=== PATIENT | male | born 1955 | race Caucasian/White ===

== ENCOUNTER 2020-08-28 10:19 | Inpatient (IN) | payer MEDICAID, SELFPAY ==
[2020-08-28] VITALS (23 sets, daily range): BP systolic 93–127; BP diastolic 37–73; PULSE 94–136; RESP 27–46; TEMP 36.6–39.9; O2SAT 93–100; BMI 24.6; BMI 27.1
--- NOTE | 2020-08-28 10:26 | CT_ITS ---
STUDY: CT BRAIN WITHOUT CONTRAST REASON FOR EXAM: Male, 65 years old. Altered mental status RADIATION DOSAGE (If Supplied By Facility): CTDIvol = ( 44.99 ) mGy, DLP = ( 812.98 ) mGycm TECHNIQUE: Transaxial CT imaging of the brain was performed without administration of intravenous contrast material. Individualized dose optimization techniques were used for this CT. COMPARISON: No relevant priors. FINDINGS: Normal soft tissue structures. Normal calvarium. There is mild cerebral atrophy with widening of the extra-axial spaces and ventricular dilatation. Normal white matter tracts of the cerebral hemispheres. Normal basal ganglia and thalami. Normal brainstem. Normal cerebellum. There is no intracranial hemorrhage. There are no findings of an acute ischemic infarction. Normal visualized paranasal sinuses. CT/Brain/Head without Contrast IMPRESSION: No acute intracranial process. Electronically Signed: Jorge Ansari MD at 12:21 EDT Tel , Service support ,
--- NOTE | 2020-08-28 10:27 | EKG12_ITS ---
Test Reason : ALT MENTAL STATUS Blood Pressure : / mmHG Vent. Rate : 130 BPM Atrial Rate : 130 BPM P-R Int : 140 ms QRS Dur : 094 ms QT Int : 326 ms P-R-T Axes : 082 102 067 degrees QTc Int : 479 ms Sinus tachycardia Rightward axis Pulmonary disease pattern Abnormal ECG Confirmed by JUSTIN DIEGO, JACK ([id number]), scientific editor YAS CHOU ([id number]) on 08/30/2020 10:40:41 A M Referred By: JASON Confirmed By:NATY ANDERSON MD
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
[2020-08-28] MEDS: 0.9% Normal Saline 1,000 ML 1000 ML IV ×2 (11:10→12:14)
[2020-08-28 11:29] LABS: International Normalized Ratio 1.4; Prothrombin Time (Protime)PT. 16.8 SECONDS (11.7-14.9)
--- NOTE | 2020-08-28 11:30 | RAD_ITS ---
STUDY: X-RAY CHEST REASON FOR EXAM: Male, 65 years old. Cough. TECHNIQUE: Single AP portable view of the chest. COMPARISON: None. FINDINGS: Is well expanded. There is vague infiltrate at the right lung base. Lungs appear otherwise clear. There is no demonstrated pleural abnormality. Normal size heart. Normal mediastinum and veronica. Normal visualized pulmonary arteries. Normal visualized aortic arch and descending thoracic aorta. There are diffuse degenerative changes of the visualized thoracic spine. There is degenerative osteoarthritis of the bilateral shoulders. There is no demonstrated abnormality of the visualized soft tissue structures of the upper abdomen. RAD/Chest 1 View (Portable) IMPRESSION: Right basilar infiltrate. Question pneumonia. Electronically Signed: Cyrus Warren DO at 13:20 EDT Tel [phone], Service support ,
[2020-08-28 11:31] LABS: Partial Thromboplast Time 36.6 Seconds (24.1-36.2)
[2020-08-28 11:38] LABS: ALB/GLOB Ratio 0.5 RATIO (0.9-2.4); AST(SGOT) 281 U/L (15-37); Alanine Aminotransfer ALT/SGPT 158 U/L (16-61); Albumin, Serum 2.6 g/dL (3.2-5.0); Alkaline Phosphatase 79 U/L (45-117); Anion Gap 18 (5-15); BUN 67 mg/dL (7-18); BUN/Creat Ratio 18.2 RATIO (10-20); Calcium,Total 9.1 mg/dL (8.5-10.1); Chloride 98 mmol/L (98-107); Creatinine, Serum 3.69 mg/dL (0.70-1.30); EST Glomerular Filtration Rate 18 mL/min (>60); Est Glom Filt Rate - Afr Amer 21 mL/min (>60); Estimated Creatinine Clearance 20.88 ml/min; Globulin 5.4 g/dL (2.2-4.2); Glucose 102 mg/dL (74-106); Potassium 3.2 mmol/L (3.5-5.1); Sodium Level 137 mmol/L (136-145)
[2020-08-28 11:48] LABS: Lactic Acid 6.8 mmol/L (0.4-1.9)
[2020-08-28 12:11] LABS: Mucous, Urine 0 SEEN /hpf (<or=2+); Squamous Epithelial Cells - UA 0 SEEN /hpf (0-5); White Blood Cells 0 SEEN /hpf (0-5)
[2020-08-28 12:15] LABS: Color, Urine Yellow (Yellow); Glucose, Dipstick Normal (Normal); Ketone-Dipstick 5 mg/dl (Negative); Leukocyte Esterase-Dipstick 25 /ul (Negative); Nitrite-Dipstick Positive (Negative); Occult Blood-Urine 250 /ul (Negative); Protein-Dipstick 500 mg/dl (Negative); Specific Gravity, Urine 1.025 (1.002-1.030); Urine Clarity Clear (Clear); Urine Urobilinogen 8 mg/dl (Normal)
[2020-08-28 12:15] LABS: Absolute Lymphocyte Count 1.49 X10^3/uL (0.83-4.51); Absolute Neutrophil Count 22.3 X10^3/uL (2.0-7.7); Basophil# 0.11 X10^3/uL; Basophil% 0.4 % (0-1); Eosinophil# 0.15 X10^3/uL; Eosinophils% 0.6 % (0-5); Hemoglobin 14.4 g/dL (13.0-16.5); Lymphocyte # 1.49 X10^3/ul (0.83-4.51); Lymphocyte % 5.8 % (19-41); Mean Corp Hgb Conc 33.5 g/dL (32-36); Mean Corpuscular Hgb 28.6 pg (27.0-32.0); Mean Corpuscular Volume 85.3 fL (80-94); Monocyte# 1.06 X10^3/uL; Monocyte% 4.1 % (0-10); NRBC Flagged by Analyzer 0.1 % (0-5); Neutrophil # 22.28 X10^3/uL (2.7-7.7); Neutrophil % 86.8 % (47-70); POSITIVE DIFFERENTIAL YES; Platelet Count 239 K/mm3 (150-450); RBC Distribution Width CV 13.6 % (11.6-14.6); RBC Distribution Width SD 42.3 fl (35.1-43.9); Red Blood Count 5.04 M/mm3 (4.6-6.2); White Blood Count 25.7 K/mm3 (4.4-11.0)
[2020-08-28 12:16] LABS: Differential Indicated SCAN CRITERIA MET
[2020-08-28 12:20] LABS: Urine Bilirubin Dipstick 3 mg/dL (Negative)
[2020-08-28 12:22] LABS: Bacteria 1+ /hpf (None Seen); Red Blood Cells-Urine 5-10 SEEN /hpf (0-5)
[2020-08-28] MEDS: Acetaminophen 650 MG Suppository RC (12:28)
[2020-08-28 12:37] LABS: Differential Comment SCANNED
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
[2020-08-28] MEDS: 0.9% Normal Saline 1,000 ML 999 ML IV (14:20)
[2020-08-28 15:07] LABS: Reflex Lactate? Y
--- NOTE | 2020-08-28 15:10 | RAD_ITS ---
HISTORY: Attempted central line placement EXAMINATION/TECHNIQUE: XR Chest 1 View: Portable upright AP chest x-ray COMPARISON: 08/28/20 at 11:33 AM FINDINGS: Stable lung gusman. No pneumothorax. Cardiac size unchanged. RAD/Chest 1 View (Portable) IMPRESSION: Stable portable chest x-ray. at 1733 Reported and signed by: Harjinder Thomas MD Electronically Signed: Harjinder Thomas MD at 17:31 EDT Tel , Service support ,
[2020-08-28 15:45] LABS: Lactic Acid 4.6 mmol/L (0.4-1.9)
--- NOTE | 2020-08-28 16:51 | SEPSISNOTE ---
Sepsis Note Physical Exam/Vitals Subjective: Objective: Brain CT 08/28/20 10:26 IMPRESSION: No acute intracranial process. Electronically Signed: Jorge Ansari MD at 12:21 EDT Tel , Service support , Lumbar Spine X-Ray 08/28/20 10:29 IMPRESSION: Question age-indeterminate compression deformity of L1. Electronically Signed: Cyrus [place]DO caryn at 13:21 EDT Tel [phone], Service support , Chest X-Ray 08/28/20 11:30 IMPRESSION: Right basilar infiltrate. Question pneumonia. Electronically Signed: Cyrus Warren DO at 13:20 EDT Tel [phone], Service support , Temp Pulse Resp BP Pulse Ox 101.2 F H 98 32 H 102/67 95 08/28/20 16:30 08/28/20 16:30 08/28/20 16:30 08/28/20 16:30 08/28/20 16:30 08/28/20 08/28/20 08/28/20 15:00 14:45 12:00 WBC 25.7 H RBC 5.04 Hgb 14.4 Hct 43.0 MCV 85.3 MCH 28.6 MCHC 33.5 RDW Std Deviation 42.3 RDW Coeff of Barbara 13.6 Plt Count 239 MPV 12.0 Immature Gran % (Auto) 2.300 H Neut % (Auto) 86.8 H Lymph % (Auto) 5.8 L [place] % (Auto) 4.1 Eos % (Auto) 0.6 Baso % (Auto) 0.4 Absolute Neuts (auto) 22.3 H Absolute Lymphs (auto) 1.49 Nucleated RBC % 0.1 Differential Comment SCANNED PT INR APTT Sodium Potassium Chloride Carbon Dioxide Anion Gap BUN Creatinine Estim Creat Clear Calc Est GFR (MDRD) Af Amer Est GFR (MDRD) Non-Af BUN/Creatinine Ratio Glucose Lactic Acid 4.6 H* Calcium Total Bilirubin AST ALT Alkaline Phosphatase Troponin I Total Protein Albumin Globulin Albumin/Globulin Ratio Urine Color Urine Clarity Urine pH Ur Specific [place] Urine Protein Urine Glucose (UA) Urine Ketones Urine Occult Blood Urine Nitrite Urine Bilirubin Urine Urobilinogen Ur Leukocyte Esterase Urine RBC Urine WBC Ur Squamous Epith Cells Urine Bacteria Urine Mucus COVID-19 (JOSE ANGEL) Pending 08/28/20 08/28/20 08/28/20 11:55 10:55 10:55 WBC RBC Hgb Hct MCV MCH MCHC RDW Std Deviation RDW Coeff of Barbara Plt Count MPV Immature Gran % (Auto) Neut % (Auto) Lymph % (Auto) [place] % (Auto) Eos % (Auto) Baso % (Auto) Absolute Neuts (auto) Absolute Lymphs (auto) Nucleated RBC % Differential Comment PT INR APTT Sodium 137 Potassium 3.2 L Chloride 98 Carbon Dioxide 21.0 Anion Gap 18 H BUN 67 H Creatinine 3.69 H Estim Creat Clear Calc 20.88 Est GFR (MDRD) Af Amer 21 L Est GFR (MDRD) Non-Af 18 L BUN/Creatinine Ratio 18.2 Glucose 102 Lactic Acid 6.8 H* Calcium 9.1 Total Bilirubin 2.80 H AST 281 H ALT 158 H Alkaline Phosphatase 79 Troponin I 0.135 H Total Protein 8.0 Albumin 2.6 L Globulin 5.4 H Albumin/Globulin Ratio 0.5 L Urine Color Yellow Urine Clarity Clear Urine pH 5.0 Ur Specific [place] 1.025 Urine Protein 500 H Urine Glucose (UA) Normal Urine Ketones 5 H Urine Occult Blood 250 H Urine Nitrite Positive H Urine Bilirubin 3 H Urine Urobilinogen 8 H Ur Leukocyte Esterase 25 H Urine RBC 5-10 SEEN Urine WBC 0 SEEN Ur Squamous Epith Cells 0 SEEN Urine Bacteria 1+ Urine Mucus 0 SEEN COVID-19 (JOSE ANGEL) 08/28/20 10:55 WBC RBC Hgb Hct MCV MCH MCHC RDW Std Deviation RDW Coeff of Barbara Plt Count MPV Immature Gran % (Auto) Neut % (Auto) Lymph % (Auto) [place] % (Auto) Eos % (Auto) Baso % (Auto) Absolute Neuts (auto) Absolute Lymphs (auto) Nucleated RBC % Differential Comment PT 16.8 H INR 1.4 APTT 36.6 H Sodium Potassium Chloride Carbon Dioxide Anion Gap BUN Creatinine Estim Creat Clear Calc Est GFR (MDRD) Af Amer Est GFR (MDRD) Non-Af BUN/Creatinine Ratio Glucose Lactic Acid Calcium Total Bilirubin AST ALT Alkaline Phosphatase Troponin I Total Protein Albumin Globulin Albumin/Globulin Ratio Urine Color Urine Clarity Urine pH Ur Specific [place] Urine Protein Urine Glucose (UA) Urine Ketones Urine Occult Blood Urine Nitrite Urine Bilirubin Urine Urobilinogen Ur Leukocyte Esterase Urine RBC Urine WBC Ur Squamous Epith Cells Urine Bacteria Urine Mucus COVID-19 (JOSE ANGEL) Assessment/Plan Patient is a 65-year-old gentleman admitted with septic shock secondary to pneumonia. Sepsis reevaluation was performed Patient remains still lethargic with respiration rate at 32. He still remains febrile with temperature of 101.2 saturating 95% on 8 L of oxygen. Skin is warm to touch with with fair capillary refill . lactic acid levels also reviewed. We will continue with current monitoring. Attestation Sepsis Attestation: Sepsis re-evaluation was performed
[2020-08-28] MEDS: Dextrose 50%-Water 25 GM/50 ML DISP.SYRIN IV (17:00)
[2020-08-28] MEDS: Heparin Injection (Vial) 5,000 UNIT/ML VIAL 5000 UNIT SC ×2 (17:03→22:25)
--- NOTE | 2020-08-28 17:09 | PCM.CONS.R ---
Assessment & Plan Assessment/Plan (1) Pneumonia: (2) Acute kidney injury: (3) Severe sepsis: (4) Essential (primary) hypertension: (5) Lactic acidosis: (6) Hypokalemia: PLAN: Unknown baseline Cr. Cr today is 3.69 mg/dl Patient likely sepsis associated XOCHILT which might still prerenal or could have progressed to ATN Non oliguric. No urgent need for HD Agree with aggressive intravascular volume Monitor RFP and UOP Avoid ACEI/ARB lactive acid level improving. continue IVF Pneumonia treatment as per ICU/hospitalist service Thank you Will continue to follow Lee Guevara MD HPI Consult Data Date of Consult: 08/28/20 HPI Narrative HPI Narrative: HUNTER PALOMARES, is a 65 M who PMH of HTN, DM,COPD. Patient was admitted to the hospital because of labored breath and confusion. In ED he was found to be septic with high WBC, XOCHILT with CR 3.6 mg/dl. chest xray showed Right side pneumonia and urine legionella is +. Lactic acid is high > 6 Patient was admitted to ICU. received 5 L of NS. Patient has meza cath placed Unkown baseline Cr. making urine in lissette meza cath No IV contrast . no documented NSAIDs use ROS: Patient is obtunded [facility] Medical History COPD (chronic obstructive pulmonary disease) Essential (primary) hypertension Heart attack Hypertension Type 2 diabetes mellitus Allergy/AdvReac Type Severity Reaction Status Date / Time No Known Allergies Allergy Verified 08/28/20 10:22 Social History Smoking Status: Former smoker Physical Exam Narrative Patient is obtunded. opens his eyes and follow simple commands Neck. No JVD. No lymphadenopathy Head AT NC Heart S1/S2 regular but tachy Chest RLL rale Abd: soft + BS no distention Ext no edema Obtunded meza cath in place Lab / Micro Data Result Diagrams: 08/28/20 12:00 08/28/20 10:55 Labs: Laboratory Results - last 24 hr 08/28/20 08/28/20 08/28/20 10:55 10:55 10:55 WBC RBC Hgb Hct MCV MCH MCHC RDW Std Deviation RDW Coeff of Barbara Plt Count MPV Immature Gran % (Auto) Neut % (Auto) Lymph % (Auto) [place] % (Auto) Eos % (Auto) Baso % (Auto) Absolute Neuts (auto) Absolute Lymphs (auto) Nucleated RBC % Differential Comment PT 16.8 H INR 1.4 APTT 36.6 H Sodium 137 Potassium 3.2 L Chloride 98 Carbon Dioxide 21.0 Anion Gap 18 H BUN 67 H Creatinine 3.69 H Estim Creat Clear Calc 20.88 Est GFR (MDRD) Af Amer 21 L Est GFR (MDRD) Non-Af 18 L BUN/Creatinine Ratio 18.2 Glucose 102 Lactic Acid 6.8 H* Calcium 9.1 Total Bilirubin 2.80 H AST 281 H ALT 158 H Alkaline Phosphatase 79 Troponin I 0.135 H Total Protein 8.0 Albumin 2.6 L Globulin 5.4 H Albumin/Globulin Ratio 0.5 L Urine Color Urine Clarity Urine pH Ur Specific [place] Urine Protein Urine Glucose (UA) Urine Ketones Urine Occult Blood Urine Nitrite Urine Bilirubin Urine Urobilinogen Ur Leukocyte Esterase Urine RBC Urine WBC Ur Squamous Epith Cells Urine Bacteria Urine Mucus 08/28/20 08/28/20 08/28/20 11:55 12:00 15:00 WBC 25.7 H RBC 5.04 Hgb 14.4 Hct 43.0 MCV 85.3 MCH 28.6 MCHC 33.5 RDW Std Deviation 42.3 RDW Coeff of Barbara 13.6 Plt Count 239 MPV 12.0 Immature Gran % (Auto) 2.300 H Neut % (Auto) 86.8 H Lymph % (Auto) 5.8 L [place] % (Auto) 4.1 Eos % (Auto) 0.6 Baso % (Auto) 0.4 Absolute Neuts (auto) 22.3 H Absolute Lymphs (auto) 1.49 Nucleated RBC % 0.1 Differential Comment SCANNED PT INR APTT Sodium Potassium Chloride Carbon Dioxide Anion Gap BUN Creatinine Estim Creat Clear Calc Est GFR (MDRD) Af Amer Est GFR (MDRD) Non-Af BUN/Creatinine Ratio Glucose Lactic Acid 4.6 H* Calcium Total Bilirubin AST ALT Alkaline Phosphatase Troponin I Total Protein Albumin Globulin Albumin/Globulin Ratio Urine Color Yellow Urine Clarity Clear Urine pH 5.0 Ur Specific [place] 1.025 Urine Protein 500 H Urine Glucose (UA) Normal Urine Ketones 5 H Urine Occult Blood 250 H Urine Nitrite Positive H Urine Bilirubin 3 H Urine Urobilinogen 8 H Ur Leukocyte Esterase 25 H Urine RBC 5-10 SEEN Urine WBC 0 SEEN Ur Squamous Epith Cells 0 SEEN Urine Bacteria 1+ Urine Mucus 0 SEEN Micro: Microbiology 08/28/20 11:55 Streptococcus pneumoniae Antigen (M - Final Urine Catheter - Catheter 08/28/20 11:55 Legionella Antigen - Final Urine Catheter - Catheter Legionella Antigen 08/28/20 11:00 SARS-CoV-2 Antigen (Rapid) - Final Mucosa - Nose Radiology Impression Brain CT 08/28/20 10:26 IMPRESSION: No acute intracranial process. Electronically Signed: Jorge Ansari MD at 12:21 EDT Tel , Service support , Lumbar Spine X-Ray 08/28/20 10:29 IMPRESSION: Question age-indeterminate compression deformity of L1. Electronically Signed: Cyrus Warren DO at 13:21 EDT Tel [phone], Service support , Chest X-Ray 08/28/20 11:30 IMPRESSION: Right basilar infiltrate. Question pneumonia. Electronically Signed: Cyrus Warren DO at 13:20 EDT Tel [phone], Service support ,
[2020-08-28] MEDS: KCL 20MEQ in 0.9% NS 20 MEQ/1,000 ML IV.SOLN. 150 MEQ IV (17:26)
[2020-08-28] MEDS: 0.9% Saline Lock 10 ML Syringe IV ×2 (17:30→22:09)
--- NOTE | 2020-08-28 17:56 | PCM.RX.CS ---
Consult Pharmacy has been consulted to manage selected antiobiotic: Vancomycin Type of Consult: New start Suspected Infection: Sepsis, Pneumonia Labs: Sodium 137 mmol/L (136-145) 08/28/20 10:55 Potassium 3.2 mmol/L (3.5-5.1) L 08/28/20 10:55 Chloride 98 mmol/L (98-107) 08/28/20 10:55 Carbon Dioxide 21.0 mmol/L (21.0-32.0) 08/28/20 10:55 Anion Gap 18 (5-15) H 08/28/20 10:55 BUN 67 mg/dL (7-18) H 08/28/20 10:55 Creatinine 3.69 mg/dL (0.70-1.30) H 08/28/20 10:55 Est GFR (MDRD) Af Amer 21 mL/min (>60) L 08/28/20 10:55 Est GFR (MDRD) Non-Af 18 mL/min (>60) L 08/28/20 10:55 BUN/Creatinine Ratio 18.2 RATIO (10-20) 08/28/20 10:55 Glucose 102 mg/dL (74-106) 08/28/20 10:55 Microbiology: Microbiology 08/28/20 11:55 Urine Catheter - Catheter Streptococcus pneumoniae Antigen (M - Final 08/28/20 11:55 Urine Catheter - Catheter Legionella Antigen - Final Legionella Antigen 08/28/20 11:00 Mucosa - Nose SARS-CoV-2 Antigen (Rapid) - Final Weight used for dosin.7 kg Estimated Creatinine Clearance: 18.9ML/MIN Goal Trough: 15-20 mcg/mL Pharmacy Plan for Drug Dosing: Give initial standard dose of 1250mg IV x1. Since the patient's CrCl < 20, will order a random vanc level to be drawn with the 2nd AM labs per protocol (which will be 08/30/20). Further dosing will be evaluated then. Pharmacy Service will continue to monitor and adjust dosing as required. Follow-Up Labs: Trough Vancomycin - random Labs to be done on [date and time ordered]: 08/30/20 0600
[2020-08-28 18:13] LABS: M R Staph aureus DNA By PCR Negative (Negative); Probe Check PASS; Specimen Processing Control PASS
[2020-08-28 18:35] LABS: Bedside Glucose 102 mg/dL (70-110)
[2020-08-28 22:00] LABS: Bedside Glucose 70 mg/dL (70-110)
[2020-08-28] MEDS: Menthol/Lanolin/Calamine/Znox 113 GM Tube 1 APPLIC TOPICAL (22:07)
[2020-08-28] MEDS: Acetaminophen 325 MG Tablet 650 MG PO (22:10)
[2020-08-29] VITALS (28 sets, daily range): BP systolic 89–162; BP diastolic 54–122; PULSE 78–116; RESP 20–35; TEMP 36.7–39.3; O2SAT 91–98
[2020-08-29] MEDS: KCL 20MEQ in 0.9% NS 20 MEQ/1,000 ML IV.SOLN. 150 MEQ IV (01:35)
[2020-08-29 03:32] LABS: Absolute Lymphocyte Count 0.91 X10^3/uL (0.83-4.51); Basophil# 0.06 X10^3/uL; Basophil% 0.3 % (0-1); Eosinophil# 0.07 X10^3/uL; Eosinophils% 0.4 % (0-5); Hemoglobin 11.2 g/dL (13.0-16.5); Lymphocyte # 0.91 X10^3/ul (0.83-4.51); Lymphocyte % 5.1 % (19-41); Mean Corp Hgb Conc 32.9 g/dL (32-36); Mean Corpuscular Hgb 28.8 pg (27.0-32.0); Mean Corpuscular Volume 87.4 fL (80-94); Mean Platelet Vol. 12.2 fl (6.2-12.0); Monocyte# 0.56 X10^3/uL; Monocyte% 3.1 % (0-10); NRBC Flagged by Analyzer 0 % (0-5); Neutrophil # 16.03 X10^3/uL (2.7-7.7); Neutrophil % 89.2 % (47-70); POSITIVE MORPHOLOGY YES; Platelet Count 171 K/mm3 (150-450); RBC Distribution Width CV 14.3 % (11.6-14.6); RBC Distribution Width SD 45.6 fl (35.1-43.9); Red Blood Count 3.89 M/mm3 (4.6-6.2)
[2020-08-29 03:33] LABS: Differential Indicated SCAN CRITERIA MET
[2020-08-29 03:51] LABS: Anion Gap 7 (5-15); BUN 66 mg/dL (7-18); Calcium,Total 7.1 mg/dL (8.5-10.1); Chloride 112 mmol/L (98-107); Creatinine, Serum 3.14 mg/dL (0.70-1.30); EST Glomerular Filtration Rate 21 mL/min (>60); Est Glom Filt Rate - Afr Amer 26 mL/min (>60); Estimated Creatinine Clearance 22.22 ml/min; Glucose 57 mg/dL (74-106); Magnesium 2.1 mg/dL (1.6-2.6); Phosphorus 2.8 mg/dL (2.5-4.9); Potassium 4.2 mmol/L (3.5-5.1); Sodium Level 143 mmol/L (136-145)
[2020-08-29] MEDS: CHLORHEXIDINE GLUC 2% CLOTH 1 EACH TOWELETTE TOPICAL (04:37)
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
[2020-08-29] MEDS: Dextrose 50%-Water 25 GM/50 ML DISP.SYRIN IV (05:49)
[2020-08-29] MEDS: Heparin Injection (Vial) 5,000 UNIT/ML VIAL 5000 UNIT SC ×3 (05:52→22:06)
[2020-08-29] MEDS: 0.9% Saline Lock 10 ML Syringe IV ×2 (06:21→22:06)
[2020-08-29 06:50] LABS: Bedside Glucose 284 mg/dL (70-110)
--- NOTE | 2020-08-29 07:12 | PCM.PN.HOSP ---
Subjective Subjective Patient remains in ICU still appears clinically ill looking. Urine Legionella antigen came back positive. No significant improvement in kidney function. Urinalysis obtained as part of his work-up came back consistent with cystitis patient has had episodes of hypoglycemia and had to be placed on D5 Objective Data Objective Data Vital Signs: Vital Signs Temp Pulse Resp BP Pulse Ox 98.5 F 94 26 H 89/60 L 96 08/29/20 06:00 08/29/20 06:00 08/29/20 06:00 08/29/20 06:00 08/29/20 06:00 Oxygen Flow Rate (L/min) 7 Oxygen Delivery Method Nasal Cannula Weight: 81.6 kg Body Mass Index (BMI) 27.1 Intake & Output: Intake and Output for Last 24 Hours 08/27/20 08/28/20 08/29/20 23:59 23:59 23:59 Intake Total 4232.75 / 4712.75 1792.75 / 1792.75 Output Total 100 / 300 600 / 600 Balance 4132.75 / 4412.75 1192.75 / 1192.75 Lab / Micro Data Result Diagrams: 08/29/20 03:25 08/29/20 03:25 Labs: Laboratory Results - last 24 hr 08/28/20 08/28/20 08/28/20 10:55 10:55 10:55 WBC RBC Hgb Hct MCV MCH MCHC RDW Std Deviation RDW Coeff of Barbara Plt Count MPV Immature Gran % (Auto) Neut % (Auto) Lymph % (Auto) [place] % (Auto) Eos % (Auto) Baso % (Auto) Absolute Neuts (auto) Absolute Lymphs (auto) Nucleated RBC % Differential Comment PT 16.8 H INR 1.4 APTT 36.6 H Sodium 137 Potassium 3.2 L Chloride 98 Carbon Dioxide 21.0 Anion Gap 18 H BUN 67 H Creatinine 3.69 H Estim Creat Clear Calc 20.88 Est GFR (MDRD) Af Amer 21 L Est GFR (MDRD) Non-Af 18 L BUN/Creatinine Ratio 18.2 Glucose 102 Lactic Acid 6.8 H* Calcium 9.1 Phosphorus Magnesium Total Bilirubin 2.80 H AST 281 H ALT 158 H Alkaline Phosphatase 79 Troponin I 0.135 H Total Protein 8.0 Albumin 2.6 L Globulin 5.4 H Albumin/Globulin Ratio 0.5 L Urine Color Urine Clarity Urine pH Ur Specific [place] Urine Protein Urine Glucose (UA) Urine Ketones Urine Occult Blood Urine Nitrite Urine Bilirubin Urine Urobilinogen Ur Leukocyte Esterase Urine RBC Urine WBC Ur Squamous Epith Cells Urine Bacteria Urine Mucus COVID-19 (JOSE ANGEL) MRSA (PCR) POC Glucose 08/28/20 08/28/20 08/28/20 11:55 12:00 14:45 WBC 25.7 H RBC 5.04 Hgb 14.4 Hct 43.0 MCV 85.3 MCH 28.6 MCHC 33.5 RDW Std Deviation 42.3 RDW Coeff of Barbara 13.6 Plt Count 239 MPV 12.0 Immature Gran % (Auto) 2.300 H Neut % (Auto) 86.8 H Lymph % (Auto) 5.8 L [place] % (Auto) 4.1 Eos % (Auto) 0.6 Baso % (Auto) 0.4 Absolute Neuts (auto) 22.3 H Absolute Lymphs (auto) 1.49 Nucleated RBC % 0.1 Differential Comment SCANNED PT INR APTT Sodium Potassium Chloride Carbon Dioxide Anion Gap BUN Creatinine Estim Creat Clear Calc Est GFR (MDRD) Af Amer Est GFR (MDRD) Non-Af BUN/Creatinine Ratio Glucose Lactic Acid Calcium Phosphorus Magnesium Total Bilirubin AST ALT Alkaline Phosphatase Troponin I Total Protein Albumin Globulin Albumin/Globulin Ratio Urine Color Yellow Urine Clarity Clear Urine pH 5.0 Ur Specific [place] 1.025 Urine Protein 500 H Urine Glucose (UA) Normal Urine Ketones 5 H Urine Occult Blood 250 H Urine Nitrite Positive H Urine Bilirubin 3 H Urine Urobilinogen 8 H Ur Leukocyte Esterase 25 H Urine RBC 5-10 SEEN Urine WBC 0 SEEN Ur Squamous Epith Cells 0 SEEN Urine Bacteria 1+ Urine Mucus 0 SEEN COVID-19 (JOSE ANGEL) Not Detected MRSA (PCR) POC Glucose 08/28/20 08/28/20 08/28/20 15:00 16:43 18:26 WBC RBC Hgb Hct MCV MCH MCHC RDW Std Deviation RDW Coeff of Barbara Plt Count MPV Immature Gran % (Auto) Neut % (Auto) Lymph % (Auto) [place] % (Auto) Eos % (Auto) Baso % (Auto) Absolute Neuts (auto) Absolute Lymphs (auto) Nucleated RBC % Differential Comment PT INR APTT Sodium Potassium Chloride Carbon Dioxide Anion Gap BUN Creatinine Estim Creat Clear Calc Est GFR (MDRD) Af Amer Est GFR (MDRD) Non-Af BUN/Creatinine Ratio Glucose Lactic Acid 4.6 H* Calcium Phosphorus Magnesium Total Bilirubin AST ALT Alkaline Phosphatase Troponin I Total Protein Albumin Globulin Albumin/Globulin Ratio Urine Color Urine Clarity Urine pH Ur Specific [place] Urine Protein Urine Glucose (UA) Urine Ketones Urine Occult Blood Urine Nitrite Urine Bilirubin Urine Urobilinogen Ur Leukocyte Esterase Urine RBC Urine WBC Ur Squamous Epith Cells Urine Bacteria Urine Mucus COVID-19 (JOSE ANGEL) MRSA (PCR) Negative POC Glucose 102 08/28/20 08/29/20 08/29/20 21:49 03:25 03:25 WBC 18.0 H RBC 3.89 L Hgb 11.2 L Hct 34.0 L MCV 87.4 MCH 28.8 MCHC 32.9 RDW Std Deviation 45.6 H RDW Coeff of Barbara 14.3 Plt Count 171 MPV 12.2 H Immature Gran % (Auto) 1.900 H Neut % (Auto) 89.2 H Lymph % (Auto) 5.1 L [place] % (Auto) 3.1 Eos % (Auto) 0.4 Baso % (Auto) 0.3 Absolute Neuts (auto) 16.0 H Absolute Lymphs (auto) 0.91 Nucleated RBC % 0 Differential Comment PT INR APTT Sodium 143 Potassium 4.2 Chloride 112 H Carbon Dioxide 24.0 Anion Gap 7 BUN 66 H Creatinine 3.14 H Estim Creat Clear Calc 22.22 Est GFR (MDRD) Af Amer 26 L Est GFR (MDRD) Non-Af 21 L BUN/Creatinine Ratio 21.0 H Glucose 57 L Lactic Acid Calcium 7.1 L Phosphorus 2.8 Magnesium 2.1 Total Bilirubin AST ALT Alkaline Phosphatase Troponin I Total Protein Albumin Globulin Albumin/Globulin Ratio Urine Color Urine Clarity Urine pH Ur Specific [place] Urine Protein Urine Glucose (UA) Urine Ketones Urine Occult Blood Urine Nitrite Urine Bilirubin Urine Urobilinogen Ur Leukocyte Esterase Urine RBC Urine WBC Ur Squamous Epith Cells Urine Bacteria Urine Mucus COVID-19 (JOSE [facility]GEL) MRSA (PCR) POC Glucose 70 08/29/20 06:12 WBC RBC Hgb Hct MCV MCH MCHC RDW Std Deviation RDW Coeff of Barbara Plt Count MPV Immature Gran % (Auto) Neut % (Auto) Lymph % (Auto) [place] % (Auto) Eos % (Auto) Baso % (Auto) Absolute Neuts (auto) Absolute Lymphs (auto) Nucleated RBC % Differential Comment PT INR APTT Sodium Potassium Chloride Carbon Dioxide Anion Gap BUN Creatinine Estim Creat Clear Calc Est GFR (MDRD) Af Amer Est GFR (MDRD) Non-Af BUN/Creatinine Ratio Glucose Lactic Acid Calcium Phosphorus Magnesium Total Bilirubin AST ALT Alkaline Phosphatase Troponin I Total Protein Albumin Globulin Albumin/Globulin Ratio Urine Color Urine Clarity Urine pH Ur Specific [place] Urine Protein Urine Glucose (UA) Urine Ketones Urine Occult Blood Urine Nitrite Urine Bilirubin Urine Urobilinogen Ur Leukocyte Esterase Urine RBC Urine WBC Ur Squamous Epith Cells Urine Bacteria Urine Mucus COVID-19 (JOSE ANGEL) MRSA (PCR) POC Glucose 284 H Micro: Microbiology 08/28/20 14:47 Mucosa - Nose Respiratory Panel (PCR) - Final 08/28/20 11:55 Urine Catheter - Catheter Streptococcus pneumoniae Antigen (M - Final 08/28/20 11:55 Urine Catheter - Catheter Legionella Antigen - Final Legionella Antigen 08/28/20 11:00 Mucosa - Nose SARS-CoV-2 Antigen (Rapid) - Final Radiography Diagnostic Testing: Radiology Impression Brain CT 08/28/20 10:26 IMPRESSION: No acute intracranial process. Electronically Signed: Jorge Ansari MD at 12:21 EDT Tel , Service support , Lumbar Spine X-Ray 08/28/20 10:29 IMPRESSION: Question age-indeterminate compression deformity of L1. Electronically Signed: Cyrus Warren DO at 13:21 EDT Tel [phone], Service support , Chest X-Ray 08/28/20 11:30 IMPRESSION: Right basilar infiltrate. Question pneumonia. Electronically Signed: Cyrus Warren DO at 13:20 EDT Tel [phone], Service support , Chest X-Ray 08/28/20 15:10 IMPRESSION: Stable portable chest x-ray. at 1733 Reported and signed by: Harjinder Thomas MD Electronically Signed: Harjinder Thomas MD at 17:31 EDT Tel , Service support , Physical Exam Narrative GENERAL: Awake but appears confused HEENT: Atraumatic; EYES; Anicteric, Normal Conjunctiva NECK; supple, normal thyroid, RESPIRATORY: Diminished to auscultation with labored breathing CARDIOVASCULAR: Regular S1 S2, tachycardic GI: soft, normoactive bowel sounds, : No Renal angle tenderness; EXTREMITIES: No edema, no clubbing, MUSCULOSKELETAL: no muscle waisting NEURO: Delirious however patient knew he was in the [facility] ED SKIN: No Rash PSYCH; Flat affect Assessment & Plan Assessment/Plan (1) Severe sepsis: (2) Pneumonia: (3) Acute kidney injury: (4) Elevated troponin: (5) Essential (primary) hypertension: (6) Type 2 diabetes mellitus: PLAN: Patient is a 65-year-old gentleman admitted with altered mental status 1. Septic shock ?Secondary to pneumonia with suspected MDR's as well as acute cystitis. Patient has been admitted to the intensive care unit being managed with aggressive IV fluid resuscitation, broad-spectrum antibiotic therapy with Zosyn and vancomycin after cultures have been obtained. Patient progressed being monitored with lactic acid level as well as periodic examination -08/29/2020; patient remains on broad-spectrum antibiotic therapy. Urine Legionella antigen came back positive. Patient seen in consultation by Dr. Jeff with intensive care. 2. Acute respiratory insufficiency ?Secondary to pneumonia with MDR antibiotic therapy as discussed above. Patient placed on supplemental oxygen titrated to keep saturation greater than 90 ?08/29/2020; urine Legionella antigen came back positive 3. Acute kidney injury ?Secondary to ATN from severe sepsis on IV fluid with subsequent monitoring of electrolytes -08/29/2020 patient was seen in consultation by Dr. Herring with nephrology 4. Acute cystitis ?On broad-spectrum antibiotic therapy 5. Diabetes mellitus type 2 ?Complicated by episodes of hypoglycemia patient be managed with D5 with every 4 glucose checks 6. Hypokalemia -Corrected per protocol 7. Essential hypertension ?Patient blood pressure was low on admission antihypertensives on hold 8. Elevated troponin ?Secondary to non-STEMI type II from sepsis 9. Coronary artery disease -History of previous GA 10. DVT prophylaxis ?SC heparin Charges/Coding Visit Charges Inpatient E&M: 09974 Subs Hosp L3
--- NOTE | 2020-08-29 07:18 | RAD_ITS ---
STUDY: X-RAY CHEST REASON FOR EXAM: Male, 65 years old. Respiratory distress TECHNIQUE: Frontal view of the chest COMPARISON: 08/28/20 FINDINGS: There is a stable right lower lobe infiltrate. The lungs are otherwise clear. There are no pleural effusions. There is no pneumothorax. The heart is normal in size. The visualized osseous structures are within normal limits. RAD/Chest 1 View (Portable) IMPRESSION: Stable right lower lobe infiltrate. Electronically Signed: Dawson Pepper MD at 8:01 EDT Tel , Service support ,
--- NOTE | 2020-08-29 07:21 | ECHOCS_ITS ---
Reason For Study: DYSPNEA/SOB Procedure This was a 2D Doppler, Color Flow transthoracic echocardiogram. The study was technically difficult. DUE TO COPD,. Contrast injection was performed. Exam performed portable in ICU/CCU. Left Ventricle Normal LV size. Left ventricular systolic function is normal. The estimated ejection fraction is 55 %. Normal diastology for age. No regional wall motion abnormalities noted. Right Ventricle Normal RV size. Normal systolic function. Atria Normal left atrium. The right atrium is not well visualized. Mitral Valve Mitral valve not well visualized. Tricuspid Valve Normal tricuspid valve. Mild tricuspid valve insufficiency. Pulmonary artery systolic pressure is 35 mmHg. Pericardium/Pleural No pericardial effusion. Medication Diluted definity 4.0ml given slow IV push to enhance endocardial definition. MMode/2D Measurements & Calculations RVDd: 2.7 cm Ao root diam: 3.3 cm LAV(MOD-bp): 41.5 ml LAV(MOD-bp) Indexed: 21.5 ml/m2 LAV(MOD-sp2): 44.2 ml LAV(MOD-sp4): 35.0 ml LA A4 area: 14.4 cm2 LA dimension(2D): 3.5 cm Time Measurements MV dec time: 0.21 sec Doppler Measurements & Calculations MV E max monico: 76.7 cm/sec Lat Peak E' Monico: 15.2 cm/sec Med Peak E' Monico: 12.6 cm/sec MV A max monico: 61.8 cm/sec E/E' lat: 5.0 E/E' med: 6.1 MV E/A: 1.2 Ao V2 max: 149.0 cm/sec LV V1 max: 130.9 cm/sec TR max monico: 276.0 cm/sec Ao max P.9 mmHg LV V1 max P.9 mmHg TR max P.5 mmHg ECHO/Echo Complete W/ Contrast Interpretation Summary Normal LV size. Left ventricular systolic function is normal. The estimated ejection fraction is 55 %. Pulmonary artery systolic pressure is 35 mmHg. Contrast injection was performed. Ordering Physician: Abdi Jeff Referring Physician: Ori Elias Performed By: Robyn Garcia, [place], RVT
[2020-08-29 07:37] LABS: BNP,B-Type NATRIURETIC PEPTIDE 48.2 pg/mL (0-100)
[2020-08-29 07:55] LABS: Bedside Glucose 74 mg/dL (70-110)
[2020-08-29] MEDS: KCL 20MEQ in D5.45NS 20 MEQ/1,000 ML IV.SOLN. 150 MEQ IV ×3 (07:55→23:55)
[2020-08-29] MEDS: Albuterol 2.5 MG/3 ML VIAL.NEB. INHALATION (11:11)
[2020-08-29] MEDS: Menthol/Lanolin/Calamine/Znox 113 GM Tube 1 APPLIC TOPICAL ×2 (11:13→22:06)
[2020-08-29 11:16] LABS: Bedside Glucose 139 mg/dL (70-110)
[2020-08-29] MEDS: Acetaminophen 325 MG Tablet 650 MG PO (12:36)
[2020-08-29] MEDS: Ipratropium/Albuterol Sulfate 3 ML AMPUL.NEB INHALATION ×2 (13:14→19:18)
--- NOTE | 2020-08-29 16:57 | PN.RENAL_ITS ---
Subjective Subjective Patient is awake alert oriented. Denied worsening breathing. No nausea no Objective Data Objective Data Vital Signs: Vital Signs Temp Pulse Resp BP Pulse Ox 101.0 F H 83 23 H 102/58 L 97 08/29/20 16:00 08/29/20 16:00 08/29/20 16:00 08/29/20 16:00 08/29/20 16:00 Oxygen Flow Rate (L/min) 5 Oxygen Delivery Method Nasal Cannula Weight: 81.6 kg Body Mass Index (BMI) 27.1 Intake & Output: Intake and Output for Last 24 Hours 08/27/20 08/28/20 08/29/20 23:59 23:59 23:59 Intake Total 4232.75 / 4712.75 3797.75 / 3797.75 Output Total 100 / 300 950 / 950 Balance 4132.75 / 4412.75 2847.75 / 2847.75 Lab / Micro Data Result Diagrams: 08/29/20 03:25 08/29/20 03:25 Labs: Laboratory Results - last 24 hr 08/28/20 08/28/20 08/28/20 14:45 16:43 18:26 WBC RBC Hgb Hct MCV MCH MCHC RDW Std Deviation RDW Coeff of Barbara Plt Count MPV Immature Gran % (Auto) Neut % (Auto) Lymph % (Auto) [place] % (Auto) Eos % (Auto) Baso % (Auto) Absolute Neuts (auto) Absolute Lymphs (auto) Nucleated RBC % Sodium Potassium Chloride Carbon Dioxide Anion Gap BUN Creatinine Estim Creat Clear Calc Est GFR (MDRD) Af Amer Est GFR (MDRD) Non-Af BUN/Creatinine Ratio Glucose Calcium Phosphorus Magnesium B-Natriuretic Peptide COVID-19 (JOSE ANGEL) Not Detected MRSA (PCR) Negative POC Glucose 102 08/28/20 08/29/20 08/29/20 21:49 03:25 03:25 WBC 18.0 H RBC 3.89 L Hgb 11.2 L Hct 34.0 L MCV 87.4 MCH 28.8 MCHC 32.9 RDW Std Deviation 45.6 H RDW Coeff of Barbara 14.3 Plt Count 171 MPV 12.2 H Immature Gran % (Auto) 1.900 H Neut % (Auto) 89.2 H Lymph % (Auto) 5.1 L [place] % (Auto) 3.1 Eos % (Auto) 0.4 Baso % (Auto) 0.3 Absolute Neuts (auto) 16.0 H Absolute Lymphs (auto) 0.91 Nucleated RBC % 0 Sodium 143 Potassium 4.2 Chloride 112 H Carbon Dioxide 24.0 Anion Gap 7 BUN 66 H Creatinine 3.14 H Estim Creat Clear Calc 22.22 Est GFR (MDRD) Af Amer 26 L Est GFR (MDRD) Non-Af 21 L BUN/Creatinine Ratio 21.0 H Glucose 57 L Calcium 7.1 L Phosphorus 2.8 Magnesium 2.1 B-Natriuretic Peptide COVID-19 (JOSE ANGEL) MRSA (PCR) POC Glucose 70 08/29/20 08/29/20 08/29/20 03:25 06:12 07:48 WBC RBC Hgb Hct MCV MCH MCHC RDW Std Deviation RDW Coeff of Barbara Plt Count MPV Immature Gran % (Auto) Neut % (Auto) Lymph % (Auto) [place] % (Auto) Eos % (Auto) Baso % (Auto) Absolute Neuts (auto) Absolute Lymphs (auto) Nucleated RBC % Sodium Potassium Chloride Carbon Dioxide Anion Gap BUN Creatinine Estim Creat Clear Calc Est GFR (MDRD) Af Amer Est GFR (MDRD) Non-Af BUN/Creatinine Ratio Glucose Calcium Phosphorus Magnesium B-Natriuretic Peptide 48.2 COVID-19 (JOSE ANGEL) MRSA (PCR) POC Glucose 284 H 74 08/29/20 11:11 WBC RBC Hgb Hct MCV MCH MCHC RDW Std Deviation RDW Coeff of Barbara Plt Count MPV Immature Gran % (Auto) Neut % (Auto) Lymph % (Auto) [place] % (Auto) Eos % (Auto) Baso % (Auto) Absolute Neuts (auto) Absolute Lymphs (auto) Nucleated RBC % Sodium Potassium Chloride Carbon Dioxide Anion Gap BUN Creatinine Estim Creat Clear Calc Est GFR (MDRD) Af Amer Est GFR (MDRD) Non-Af BUN/Creatinine Ratio Glucose Calcium Phosphorus Magnesium B-Natriuretic Peptide COVID-19 (JOSE ANGEL) MRSA (PCR) POC Glucose 139 H Micro: Microbiology 08/28/20 11:55 Urine Catheter - Catheter Urine Culture - Preliminary Culture exhibits no growth. 08/28/20 11:55 Urine, Clean Catch Urine Culture - Preliminary Culture exhibits no growth. 08/28/20 14:47 Mucosa - Nose Respiratory Panel (PCR) - Final 08/28/20 11:55 Urine Catheter - Catheter Streptococcus pneumoniae Antigen (M - Final 08/28/20 11:55 Urine Catheter - Catheter Legionella Antigen - Final Legionella Antigen 08/28/20 11:00 Mucosa - Nose SARS-CoV-2 Antigen (Rapid) - Final Radiography Diagnostic Testing: Radiology Impression Chest X-Ray 08/28/20 15:10 IMPRESSION: Stable portable chest x-ray. at 1733 Reported and signed by: Harjinder Thomas MD Electronically Signed: Harjinder Thomas MD at 17:31 EDT Tel , Service support , Chest X-Ray 08/29/20 07:18 IMPRESSION: Stable right lower lobe infiltrate. Electronically Signed: Dawson Pepper MD at 8:01 EDT Tel , Service support , Physical Exam Narrative Patient is awake alert oriented Neck. No JVD. No lymphadenopathy Head AT NC Heart S1/S2 regular but tachy Chest RLL rale Abd: soft + BS no distention Ext no edema No focal deficit meza cath in place Assessment & Plan Assessment/Plan (1) Pneumonia: (2) Acute kidney injury: (3) Severe sepsis: (4) Essential (primary) hypertension: (5) Lactic acidosis: (6) Hypokalemia: PLAN: Unknown baseline Cr. Creatinine peaked at 3.7 mg deciliter admissi on. Kidney function is improving with intravascular volume expansion Patient likely sepsis associated XOCHILT Non oliguric. Continue IV fluid Serum bicarb level is improving. We will continue same isotonic bicarb drip Monitor RFP and UOP Avoid ACEI/ARB Pneumonia treatment as per ICU/hospitalist service Thank you Will continue to follow Lee Guevara MD
[2020-08-29 17:25] LABS: Bedside Glucose 263 mg/dL (70-110)
[2020-08-29] MEDS: Insulin Lispro 100 UNIT/ML INSULN.PEN SC (17:40)
--- NOTE | 2020-08-29 21:38 | NURSING ---
Due to patient refusing rectal Tylenol at this time and increasing temperature, patient bilateral armpits and groin packed with ice.If fever contines to climb cooling blanket will be applied. Will continue to monitor.
[2020-08-30] VITALS (32 sets, daily range): BP systolic 104–140; BP diastolic 57–99; PULSE 72–100; RESP 20–36; TEMP 37.4–38.8; O2SAT 92–97
[2020-08-30] MEDS: Insulin Lispro 100 UNIT/ML INSULN.PEN SC ×4 (00:02→17:43)
[2020-08-30] MEDS: Acetaminophen 650 MG Suppository RC (00:12)
[2020-08-30 00:36] LABS: Bedside Glucose 289 mg/dL (70-110)
[2020-08-30] MEDS: 0.9% Saline Lock 10 ML Syringe IV (04:06)
[2020-08-30 04:14] LABS: Absolute Lymphocyte Count 0.54 X10^3/uL (0.83-4.51); Absolute Neutrophil Count 8.2 X10^3/uL (2.0-7.7); Basophil# 0.03 X10^3/uL; Basophil% 0.3 % (0-1); Eosinophil# 0.01 X10^3/uL; Eosinophils% 0.1 % (0-5); Hematocrit 29.9 % (40-54); Hemoglobin 9.9 g/dL (13.0-16.5); Lymphocyte # 0.54 X10^3/ul (0.83-4.51); Lymphocyte % 5.8 % (19-41); Mean Corp Hgb Conc 33.1 g/dL (32-36); Mean Corpuscular Hgb 28.8 pg (27.0-32.0); Mean Corpuscular Volume 86.9 fL (80-94); Mean Platelet Vol. 12.7 fl (6.2-12.0); Monocyte# 0.39 X10^3/uL; Monocyte% 4.2 % (0-10); NRBC Flagged by Analyzer 0.2 % (0-5); Neutrophil # 8.16 X10^3/uL (2.7-7.7); Neutrophil % 88.1 % (47-70); POSITIVE DIFFERENTIAL YES; Platelet Count 142 K/mm3 (150-450); RBC Distribution Width CV 14.3 % (11.6-14.6); RBC Distribution Width SD 45.7 fl (35.1-43.9); Red Blood Count 3.44 M/mm3 (4.6-6.2); White Blood Count 9.3 K/mm3 (4.4-11.0)
[2020-08-30 04:16] LABS: Differential Indicated SCAN CRITERIA MET
[2020-08-30 04:29] LABS: Anion Gap 7 (5-15); BUN 48 mg/dL (7-18); BUN/Creat Ratio 25.7 RATIO (10-20); Calcium,Total 7.1 mg/dL (8.5-10.1); Chloride 114 mmol/L (98-107); Creatinine, Serum 1.87 mg/dL (0.70-1.30); EST Glomerular Filtration Rate 39 mL/min (>60); Est Glom Filt Rate - Afr Amer 47 mL/min (>60); Estimated Creatinine Clearance 37.31 ml/min; Glucose 209 mg/dL (74-106); Sodium Level 142 mmol/L (136-145)
[2020-08-30 04:30] LABS: Vancomycin, Random Level 6.7 ug/mL (0.0-15.0)
[2020-08-30] MEDS: Heparin Injection (Vial) 5,000 UNIT/ML VIAL 5000 UNIT SC ×3 (05:11→21:33)
[2020-08-30] MEDS: Ipratropium/Albuterol Sulfate 3 ML AMPUL.NEB INHALATION ×3 (06:41→19:21)
[2020-08-30 07:16] LABS: Bedside Glucose 51 mg/dL (70-110)
[2020-08-30 07:16] LABS: Bedside Glucose 186 mg/dL (70-110)
--- NOTE | 2020-08-30 07:26 | PCM.PN.INT ---
Assessment & Plan Assessment/Plan (1) Septic shock: PLAN: RECOMMENDATIONS: 1. Continue broad-spectrum antimicrobials. 2. Recommend conservative use of fluids, given hemodynamic stability. 3. Await swallow evaluation 4. Await echocardiogram. 5. Establish additional peripheral IV access and remove femoral central venous line. 6. Wean supplemental oxygen to maintain saturations at or above 90%. 7. Start scheduled bronchodilator therapy. 8. Encourage incentive spirometer use and mobilize patient as tolerated. IMPRESSIONS: 1. Septic shock Suspect that this is likely multifactorial in etiology with Legionella pneumonia and underlying urinary tract source of infection contributing. The patient will be continued on broad antimicrobials, pending further infectious work-up. He has been adequately volume resuscitated at this time. Consider removal of triple-lumen catheter. Patient may have an element of aspiration pneumonia in addition to Legionella. Would consider addition of azithromycin or Levaquin. Swallow evaluation later today. 2. Acute hypoxemic respiratory failure Although the patient has a documented history of COPD, he has never been evaluated by a paper sales representative or completed pulmonary function studies. In addition, he does not utilize inhalers at his baseline. Echocardiogram has been ordered to evaluate for possible component of CHF. Patient does have Legionella antigen and a dense right lower lobe infiltrate. Some concern for aspiration pneumonia, so would continue aspiration antibiotics. Azithromycin versus Levaquin would be appropriate for Legionella component. Could consider infectious disease consult. 3. Acute kidney injury Improving. Clinical concern for prerenal etiology versus ischemic ATN in the setting of #1. The patient has been volume resuscitated with improving creatinine noted. Nephrology is currently following. Continue to monitor urine output for now. No current indication for renal replacement therapy. 4. Metabolic encephalopathy Improved. Likely metabolic in etiology and related to underlying infectious processes and underlying renal insufficiency. The patient is much more alert and appropriate this morning with supportive measures. CT head was negative. Continue measures as noted above. 5. Hypertension/history of coronary artery disease/diabetes mellitus Complicates care, management, recovery and prognosis. Continue to hold home antihypertensives. This note was generated with [employer] dictation software. It may contain incorrect words, spelling, and punctuation that were not noted in checking the note before signing. Subjective Subjective Patient did okay overnight from a hemodynamic standpoint. Patient is upset that he was made n.p.o. secondary to concerns for swallowing. Patient did admit that he did have a choking episode associated with a Reeces cup but felt that he was able to expectorate everything. Patient is reporting dry mouth, but no abdominal pain. No pressors or fluid boluses were required overnight. Nursing is not reporting any confusion, but patient was agitated about n.p.o. status. Patient has remained on 5 L nasal cannula to maintain saturations. Objective Data Objective Data Vital Signs: Vital Signs Temp Pulse Resp BP Pulse Ox 37.6 C H 82 30 H 120/66 95 08/30/20 07:00 08/30/20 07:00 08/30/20 07:00 08/30/20 07:00 08/30/20 07:00 Oxygen Flow Rate (L/min) 5 Oxygen Delivery Method Nasal Cannula Weight: 82.3 kg Body Mass Index (BMI) 27.1 Intake & Output: Intake and Output for Last 24 Hours 08/28/20 08/29/20 08/30/20 23:59 23:59 23:59 Intake Total 4232.75 / 4712.75 3894.25 / 3894.25 1010.25 / 1010.25 Output Total 100 / 300 1350 / 2050 1150 / 1150 Balance 4132.75 / 4412.75 2544.25 / 1844.25 -139.75 / -139.75 Lab / Micro Data Result Diagrams: 08/30/20 04:10 08/30/20 04:10 Labs: Laboratory Results - last 24 hr 08/28/20 08/28/20 08/29/20 16:56 17:10 03:25 WBC RBC Hgb Hct MCV MCH MCHC RDW Std Deviation RDW Coeff of Barbara Plt Count MPV Immature Gran % (Auto) Neut % (Auto) Lymph % (Auto) [place] % (Auto) Eos % (Auto) Baso % (Auto) Absolute Neuts (auto) Absolute Lymphs (auto) Nucleated RBC % Sodium Potassium Chloride Carbon Dioxide Anion Gap BUN Creatinine Estim Creat Clear Calc Est GFR (MDRD) Af Amer Est GFR (MDRD) Non-Af BUN/Creatinine Ratio Glucose Calcium B-Natriuretic Peptide 48.2 Random Vancomycin POC Glucose 51 L 186 H 08/29/20 08/29/20 08/29/20 07:48 11:11 17:24 WBC RBC Hgb Hct MCV MCH MCHC RDW Std Deviation RDW Coeff of Barbara Plt Count MPV Immature Gran % (Auto) Neut % (Auto) Lymph % (Auto) [place] % (Auto) Eos % (Auto) Baso % (Auto) Absolute Neuts (auto) Absolute Lymphs (auto) Nucleated RBC % Sodium Potassium Chloride Carbon Dioxide Anion Gap BUN Creatinine Estim Creat Clear Calc Est GFR (MDRD) Af Amer Est GFR (MDRD) Non-Af BUN/Creatinine Ratio Glucose Calcium B-Natriuretic Peptide Random Vancomycin POC Glucose 74 139 H 263 H 08/29/20 08/30/20 08/30/20 23:59 04:10 04:10 WBC 9.3 RBC 3.44 L Hgb 9.9 L Hct 29.9 L MCV 86.9 MCH 28.8 MCHC 33.1 RDW Std Deviation 45.7 H RDW Coeff of Barbara 14.3 Plt Count 142 L MPV 12.7 H Immature Gran % (Auto) 1.500 H Neut % (Auto) 88.1 H Lymph % (Auto) 5.8 L [place] % (Auto) 4.2 Eos % (Auto) 0.1 Baso % (Auto) 0.3 Absolute Neuts (auto) 8.2 H Absolute Lymphs (auto) 0.54 L Nucleated RBC % 0.2 Sodium 142 Potassium 4.0 Chloride 114 H Carbon Dioxide 21.0 Anion Gap 7 BUN 48 H Creatinine 1.87 H Estim Creat Clear Calc 37.31 Est GFR (MDRD) Af Amer 47 L Est GFR (MDRD) Non-Af 39 L BUN/Creatinine Ratio 25.7 H Glucose 209 H Calcium 7.1 L B-Natriuretic Peptide Random Vancomycin POC Glucose 289 H 08/30/20 04:10 WBC RBC Hgb Hct MCV MCH MCHC RDW Std Deviation RDW Coeff of Barbara Plt Count MPV Immature Gran % (Auto) Neut % (Auto) Lymph % (Auto) [place] % (Auto) Eos % (Auto) Baso % (Auto) Absolute Neuts (auto) Absolute Lymphs (auto) Nucleated RBC % Sodium Potassium Chloride Carbon Dioxide Anion Gap BUN Creatinine Estim Creat Clear Calc Est GFR (MDRD) Af Amer Est GFR (MDRD) Non-Af BUN/Creatinine Ratio Glucose Calcium B-Natriuretic Peptide Random Vancomycin 6.7 POC Glucose Micro: Microbiology 08/28/20 11:55 Urine Catheter - Catheter Urine Culture - Preliminary Culture exhibits no growth. 08/28/20 11:55 Urine, Clean Catch Urine Culture - Preliminary Culture exhibits no growth. 08/28/20 14:47 Mucosa - Nose Respiratory Panel (PCR) - Final 08/28/20 11:55 Urine Catheter - Catheter Streptococcus pneumoniae Antigen (M - Final 08/28/20 11:55 Urine Catheter - Catheter Legionella Antigen - Final Legionella Antigen 08/28/20 11:00 Mucosa - Nose SARS-CoV-2 Antigen (Rapid) - Final Radiography Diagnostic Testing: Radiology Impression Chest X-Ray 08/29/20 07:18 IMPRESSION: Stable right lower lobe infiltrate. Electronically Signed: Dawson Pepper MD at 8:01 EDT Tel , Service support , Physical Exam Const alert and no apparent distress Constitutional Narrative: Extremely hard of hearing. General Appearance: cooperative HEENT normocephalic and head/scalp atraumatic Eyes PERRL and EOMs intact bilaterally Neck supple General: trachea midline Resp normal respiratory effort Resp Narrative: End expiratory wheezing noted Effort and Inspection: tachypneic Auscultation: Negative for rales or rhonchi Cardio regular rate, regular rhythm, S1 normal heart sound and S2 normal heart sound Heart Sounds: Negative for gallop, murmur or rub GI normal to inspection, nondistended, normoactive bowel sounds Extremity no clubbing, cyanosis or edema Skin no rashes or lesions noted Neuro CN's II-XII intact bilaterally, moves all extremities and no focal motor deficits Psych Mood & Affect: flat affect Charges/Coding Visit Charges Inpatient E&M: 16400 Subs Hosp L3
--- NOTE | 2020-08-30 07:37 | PCM.RX.CS ---
Consult Pharmacy has been consulted to manage selected antiobiotic: Vancomycin Type of Consult: Follow-up Suspected Infection: Sepsis, Pneumonia Prior Doses of Antibiotics Received/Current Regimen: Received 1250mg iv x 1 on 08.28.20. Labs: Sodium 142 mmol/L (136-145) 08/30/20 04:10 Potassium 4.0 mmol/L (3.5-5.1) 08/30/20 04:10 Chloride 114 mmol/L (98-107) H 08/30/20 04:10 Carbon Dioxide 21.0 mmol/L (21.0-32.0) 08/30/20 04:10 Anion Gap 7 (5-15) 08/30/20 04:10 BUN 48 mg/dL (7-18) H 08/30/20 04:10 Creatinine 1.87 mg/dL (0.70-1.30) H 08/30/20 04:10 Est GFR (MDRD) Af Amer 47 mL/min (>60) L 08/30/20 04:10 Est GFR (MDRD) Non-Af 39 mL/min (>60) L 08/30/20 04:10 BUN/Creatinine Ratio 25.7 RATIO (10-20) H 08/30/20 04:10 Glucose 209 mg/dL (74-106) H 08/30/20 04:10 Random Vancomycin 6.7 ug/mL (0.0-15.0) 08/30/20 04:10 Microbiology: Microbiology 08/28/20 11:55 Urine Catheter - Catheter Urine Culture - Preliminary Culture exhibits no growth. 08/28/20 11:55 Urine, Clean Catch Urine Culture - Preliminary Culture exhibits no growth. 08/28/20 14:47 Mucosa - Nose Respiratory Panel (PCR) - Final 08/28/20 11:55 Urine Catheter - Catheter Streptococcus pneumoniae Antigen (M - Final 08/28/20 11:55 Urine Catheter - Catheter Legionella Antigen - Final Legionella Antigen 08/28/20 11:00 Mucosa - Nose SARS-CoV-2 Antigen (Rapid) - Final Weight used for dosin kg Estimated Creatinine Clearance: ~37 ml/min Goal Trough: 15-20 mcg/mL Pharmacy Plan for Drug Dosing: Random level this AM was 6.7 with goal range of 15-20mcg/ml. Have ordered 1250mg iv q24h starting this AM per protocol. A trough level ordered for .. before 3rd dose. Pharmacy Service will continue to monitor and adjust dosing as required. Follow-Up Labs: Trough Vancomycin - ..21 @0830 before 0900 dose
[2020-08-30] MEDS: KCL 20MEQ in D5.45NS 20 MEQ/1,000 ML IV.SOLN. 75 MEQ IV ×2 (08:05→22:00)
--- NOTE | 2020-08-30 10:21 | PCM.PN.HOSP ---
Subjective Subjective Feels a bit better today, is complaining about a dry mouth and would like to drink some water. He does admit to choking on peanut butter. Objective Data Objective Data Vital Signs: Vital Signs Temp Pulse Resp BP Pulse Ox 100.0 F H 73 21 H 118/66 92 08/30/20 08:00 08/30/20 08:00 08/30/20 08:00 08/30/20 08:00 08/30/20 08:00 Oxygen Flow Rate (L/min) 5 Oxygen Delivery Method Nasal Cannula Weight: 181 lb 7.047 oz Body Mass Index (BMI) 27.1 Intake & Output: Intake and Output for Last 24 Hours 08/29/20 08/30/20 08/31/20 03:59 03:59 03:59 Intake Total 5730.25 / 5730.25 2446.75 / 2446.75 1047.75 / 1047.75 Output Total 300 / 300 1850 / 1850 750 / 750 Balance 5430.25 / 5430.25 596.75 / 596.75 297.75 / 297.75 Lab / Micro Data Result Diagrams: 08/30/20 04:10 08/30/20 04:10 Labs: Laboratory Results - last 24 hr 08/28/20 08/28/20 08/29/20 16:56 17:10 11:11 WBC RBC Hgb Hct MCV MCH MCHC RDW Std Deviation RDW Coeff of Barbara Plt Count MPV Immature Gran % (Auto) Neut % (Auto) Lymph % (Auto) [place] % (Auto) Eos % (Auto) Baso % (Auto) Absolute Neuts (auto) Absolute Lymphs (auto) Nucleated RBC % Sodium Potassium Chloride Carbon Dioxide Anion Gap BUN Creatinine Estim Creat Clear Calc Est GFR (MDRD) Af Amer Est GFR (MDRD) Non-Af BUN/Creatinine Ratio Glucose Calcium Random Vancomycin POC Glucose 51 L 186 H 139 H 08/29/20 08/29/20 08/30/20 17:24 23:59 04:10 WBC RBC Hgb Hct MCV MCH MCHC RDW Std Deviation RDW Coeff of Barbara Plt Count MPV Immature Gran % (Auto) Neut % (Auto) Lymph % (Auto) [place] % (Auto) Eos % (Auto) Baso % (Auto) Absolute Neuts (auto) Absolute Lymphs (auto) Nucleated RBC % Sodium 142 Potassium 4.0 Chloride 114 H Carbon Dioxide 21.0 Anion Gap 7 BUN 48 H Creatinine 1.87 H Estim Creat Clear Calc 37.31 Est GFR (MDRD) Af Amer 47 L Est GFR (MDRD) Non-Af 39 L BUN/Creatinine Ratio 25.7 H Glucose 209 H Calcium 7.1 L Random Vancomycin POC Glucose 263 H 289 H 08/30/20 08/30/20 04:10 04:10 WBC 9.3 RBC 3.44 L Hgb 9.9 L Hct 29.9 L MCV 86.9 MCH 28.8 MCHC 33.1 RDW Std Deviation 45.7 H RDW Coeff of Barbara 14.3 Plt Count 142 L MPV 12.7 H Immature Gran % (Auto) 1.500 H Neut % (Auto) 88.1 H Lymph % (Auto) 5.8 L [place] % (Auto) 4.2 Eos % (Auto) 0.1 Baso % (Auto) 0.3 Absolute Neuts (auto) 8.2 H Absolute Lymphs (auto) 0.54 L Nucleated RBC % 0.2 Sodium Potassium Chloride Carbon Dioxide Anion Gap BUN Creatinine Estim Creat Clear Calc Est GFR (MDRD) Af Amer Est GFR (MDRD) Non-Af BUN/Creatinine Ratio Glucose Calcium Random Vancomycin 6.7 POC Glucose Micro: Microbiology 08/28/20 11:55 Urine, Clean Catch Urine Culture - Final Culture exhibits no growth. 08/28/20 11:55 Urine Catheter - Catheter Urine Culture - Preliminary Culture exhibits no growth. 08/28/20 14:47 Mucosa - Nose Respiratory Panel (PCR) - Final 08/28/20 11:55 Urine Catheter - Catheter Streptococcus pneumoniae Antigen (M - Final 08/28/20 11:55 Urine Catheter - Catheter Legionella Antigen - Final Legionella Antigen 08/28/20 11:00 Mucosa - Nose SARS-CoV-2 Antigen (Rapid) - Final Physical Exam Narrative GENERAL: Awake but appears confused HEENT: Atraumatic; EYES; Anicteric, Normal Conjunctiva NECK; supple, normal thyroid, RESPIRATORY: Diminished to auscultation with labored breathing CARDIOVASCULAR: Regular S1 S2, tachycardic GI: soft, normoactive bowel sounds, : No Renal angle tenderness; EXTREMITIES: No edema, no clubbing, MUSCULOSKELETAL: no muscle waisting NEURO: Delirious however patient knew he was in the [facility] [place] ED SKIN: No Rash PSYCH; Flat affect Const alert, oriented x3 and no apparent distress General Appearance: cooperative HEENT normocephalic Head and Scalp: normocephalic Mouth: dry mucous membranes Eyes PERRL and EOMs intact bilaterally Neck supple and no JVD Resp normal respiratory effort, no retractions, no use of accessory muscles and clear to auscultation bilaterally Auscultation: Negative for crackles, rales, rhonchi or wheezes Cardio regular rate, regular rhythm, S1 normal heart sound, S2 normal heart sound and no murmurs GI soft to palpation, non-tender and non-distended; Negative for hepatosplenomegaly Extremity no clubbing, cyanosis or edema Skin no rashes or lesions noted Neuro no focal motor deficits and no sensory deficits noted Psych affect normal Appearance: appropriate Assessment & Plan Assessment/Plan (1) Severe sepsis: (2) Pneumonia: QUALIFIERS: Pneumonia type: aspiration pneumonia Aspiration pneumonia type: unspecified Laterality: right Lung location: lower lobe of lung Qualified Code(s): J69.0 - Pneumonitis due to inhalation of food and vomit (3) Acute kidney injury: (4) Elevated troponin: (5) Essential (primary) hypertension: (6) Type 2 diabetes mellitus: PLAN: Patient is a 65-year-old gentleman admitted with altered mental status 1. Septic shock ?Secondary to pneumonia with suspected MDR's as well as acute cystitis. Patient has been admitted to the intensive care unit being managed with aggressive IV fluid resuscitation, broad-spectrum antibiotic therapy with Zosyn and vancomycin after cultures have been obtained. Patient progressed being monitored with lactic acid level as well as periodic examination -08/29/2020; patient remains on broad-spectrum antibiotic therapy. Urine Legionella antigen came back positive. Patient seen in consultation by Dr. Jeff with intensive care. ?08/30/2020: Can discontinue Zosyn and vancomycin, urine cultures unremarkable. Given his positive Legionella, will place him back on azithromycin and transition him to Unasyn to cover for aspiration pneumonia. Speech therapy to evaluate today 2. Acute respiratory insufficiency ?Secondary to pneumonia with MDR antibiotic therapy as discussed above. Patient placed on supplemental oxygen titrated to keep saturation greater than 90 ?08/29/2020; urine Legionella antigen came back positive -08/30/2020: See #1 3. Acute kidney injury ?Secondary to ATN from severe sepsis on IV fluid with subsequent monitoring of electrolytes -08/29/2020 patient was seen in consultation by Dr. Herring with nephrology -08/30/2020: Renal function appears to be improving, appreciate nephrology's assistance 4. Acute cystitis ?On broad-spectrum antibiotic therapy -08/30/2020: No UTI 5. Diabetes mellitus type 2 ?Complicated by episodes of hypoglycemia patient be managed with D5 with every 4 glucose checks 6. Hypokalemia -Corrected per protocol 7. Essential hypertension ?Patient blood pressure was low on admission antihypertensives on hold 8. Elevated troponin ?Secondary to non-STEMI type II from sepsis 9. Coronary artery disease -History of previous [place] DVT: Heparin Charges/Coding Visit Charges Inpatient E&M: 33280 Subs Hosp L2
[2020-08-30] MEDS: Menthol/Lanolin/Calamine/Znox 113 GM Tube 1 APPLIC TOPICAL ×2 (10:59→21:28)
--- NOTE | 2020-08-30 11:27 | CASEMGMT ---
Pt is listed as self pay. SW will speak w/pt and provide resources when appropriate. RAJAN Colbert
[2020-08-30] MEDS: Acetaminophen 325 MG Tablet 650 MG PO ×2 (11:40→17:41)
[2020-08-30 11:51] LABS: Bedside Glucose 217 mg/dL (70-110)
[2020-08-30 13:00] LABS: Bedside Glucose 193 mg/dL (70-110)
[2020-08-30] MEDS: CHLORHEXIDINE GLUC 2% CLOTH 1 EACH TOWELETTE TOPICAL (13:11)
--- NOTE | 2020-08-30 13:55 | CASEMGMT ---
RN CM Face to Face with patient for initial transition planning/care coordination assessment. RN CM introduced self and role at [facility]. Patient lying in bed, alert and oriented. Patient willing to participate in assessment and is able to answer all questions appropriately. Care providers, pharmacy, and demographics verified. Patient wishes to discharge home, will monitor progress with therapy for possible HHC. Patient states he has no further needs or concerns at this time. CM to follow for discharge planning needs that may arise. PCP: Curt Specialists: none Preferred Pharmacy: [facility] Insurance: [employer] to provide resources Prescription Benefit: none Living Will/HPOA: none patient is interested in completing. LNOK: son Living Arrangements: Patient lives with brother in a mobile home with 3 steps and railing to enter the home. Transportation: self/brother DME/HHC: Patient states he has built in shower seat and grab bar, cane, and walker. Patient denies previous HHC or SNF. Disposition Plan: Patient to discharge home with family support and follow-up plans in place. Will monitor progress with therapy for possilbe HHC. Gia LEVINN, RN, CM
--- NOTE | 2020-08-30 16:32 | PN.RENAL_ITS ---
Subjective Subjective Following for acute kidney injury on chronic kidney disease, dialysis dependent. The patient was seen after hemodialysis. He denies chest pain, shortness of breath, or nausea. Objective Data Objective Data Vital Signs: Vital Signs Temp Pulse Resp BP Pulse Ox 100.3 F H 99 32 H 110/71 94 08/30/20 15:00 08/30/20 15:42 08/30/20 15:00 08/30/20 15:00 08/30/20 15:00 Oxygen Flow Rate (L/min) 5 Oxygen Delivery Method Nasal Cannula Weight: 82.3 kg Body Mass Index (BMI) 27.1 Intake & Output: Intake and Output for Last 24 Hours 08/28/20 08/29/20 08/30/20 23:59 23:59 23:59 Intake Total 4232.75 / 4712.75 3894.25 / 3894.25 1754.75 / 1754.75 Output Total 100 / 300 1350 / 2050 1750 / 1750 Balance 4132.75 / 4412.75 2544.25 / 1844.25 4.75 / 4.75 Lab / Micro Data Result Diagrams: 08/30/20 04:10 08/30/20 04:10 Labs: Laboratory Results - last 24 hr 08/28/20 08/28/20 08/29/20 16:56 17:10 17:24 WBC RBC Hgb Hct MCV MCH MCHC RDW Std Deviation RDW Coeff of Barbara Plt Count MPV Immature Gran % (Auto) Neut % (Auto) Lymph % (Auto) [place] % (Auto) Eos % (Auto) Baso % (Auto) Absolute Neuts (auto) Absolute Lymphs (auto) Nucleated RBC % Sodium Potassium Chloride Carbon Dioxide Anion Gap BUN Creatinine Estim Creat Clear Calc Est GFR (MDRD) Af Amer Est GFR (MDRD) Non-Af BUN/Creatinine Ratio Glucose Calcium Random Vancomycin POC Glucose 51 L 186 H 263 H 08/29/20 08/30/20 08/30/20 23:59 04:10 04:10 WBC 9.3 RBC 3.44 L Hgb 9.9 L Hct 29.9 L MCV 86.9 MCH 28.8 MCHC 33.1 RDW Std Deviation 45.7 H RDW Coeff of Barbara 14.3 Plt Count 142 L MPV 12.7 H Immature Gran % (Auto) 1.500 H Neut % (Auto) 88.1 H Lymph % (Auto) 5.8 L [place] % (Auto) 4.2 Eos % (Auto) 0.1 Baso % (Auto) 0.3 Absolute Neuts (auto) 8.2 H Absolute Lymphs (auto) 0.54 L Nucleated RBC % 0.2 Sodium 142 Potassium 4.0 Chloride 114 H Carbon Dioxide 21.0 Anion Gap 7 BUN 48 H Creatinine 1.87 H Estim Creat Clear Calc 37.31 Est GFR (MDRD) Af Amer 47 L Est GFR (MDRD) Non-Af 39 L BUN/Creatinine Ratio 25.7 H Glucose 209 H Calcium 7.1 L Random Vancomycin POC Glucose 289 H 08/30/20 08/30/20 08/30/20 04:10 06:31 11:50 WBC RBC Hgb Hct MCV MCH MCHC RDW Std Deviation RDW Coeff of Barbara Plt Count MPV Immature Gran % (Auto) Neut % (Auto) Lymph % (Auto) [place] % (Auto) Eos % (Auto) Baso % (Auto) Absolute Neuts (auto) Absolute Lymphs (auto) Nucleated RBC % Sodium Potassium Chloride Carbon Dioxide Anion Gap BUN Creatinine Estim Creat Clear Calc Est GFR (MDRD) Af Amer Est GFR (MDRD) Non-Af BUN/Creatinine Ratio Glucose Calcium Random Vancomycin 6.7 POC Glucose 217 H 193 H Micro: Microbiology 08/28/20 11:55 Urine Catheter - Catheter Urine Culture - Final Culture exhibits no growth. 08/28/20 10:55 Blood Culture (Wb) - Left Wrist Blood Culture - Preliminary No growth in 48 hours. 08/28/20 12:00 Blood Culture (Wb) - Anticubital Left Blood Culture - Preliminary No growth in 48 hours. 08/28/20 11:55 Urine, Clean Catch Urine Culture - Final Culture exhibits no growth. 08/28/20 14:47 Mucosa - Nose Respiratory Panel (PCR) - Final 08/28/20 11:55 Urine Catheter - Catheter Streptococcus pneumoniae Antigen (M - Final 08/28/20 11:55 Urine Catheter - Catheter Legionella Antigen - Final Legionella Antigen 08/28/20 11:00 Mucosa - Nose SARS-CoV-2 Antigen (Rapid) - Final Radiography Diagnostic Testing: Radiology Impression Echocardiogram 08/29/20 07:21 Interpretation Summary Normal LV size. Left ventricular systolic function is normal. The estimated ejection fraction is 55 %. Pulmonary artery systolic pressure is 35 mmHg. Contrast injection was performed. Ordering Physician: Abdi Jeff Referring Physician: Ori Elias Performed By: Robyn Garcia, MORACS, RVT Physical Exam Narrative Patient is awake alert oriented Neck. No JVD. No lymphadenopathy Head AT NC Heart S1/S2 regular Chest clear to auscultation anteriorly Abd: soft + BS no distention, no pain on palpation Ext no edema No focal deficit Assessment & Plan Assessment/Plan (1) Acute kidney injury: PLAN: Unknown baseline serum creatinine. Serum creatinine peaked at 3.69 mg/dL on 08/28/2020. There has been a gradual improvement of renal function since then with volume repletion. Suspect the patient has ischemic ATN. Renal function has continued to improve the last 24 hours. Continue IV fluid for 1 more day. There is no need for dialysis. Continue to hold lisinopril until renal function stabilizes. Recheck renal function panel again tomorrow. (2) Essential (primary) hypertension: PLAN: BP is stable off of usual antihypertensives including lisinopril, Maxide, and amlodipine. (3) Severe sepsis: PLAN: Likely due to pneumonia. Antibiotics as per primary team. Dose of antibiotics are acceptable for the patient's estimated creatinine clearance. (4) Pneumonia: QUALIFIERS: Pneumonia type: aspiration pneumonia Aspiration pneumonia type: unspecified Laterality: right Lung location: lower lobe of lung Qualified Code(s): J69.0 - Pneumonitis due to inhalation of food and vomit PLAN: As above. (5) Lactic acidosis: (6) Hypokalemia: PLAN: Potassium level has continued to remain stable. The patient is on potassium containing IV fluid which will be continued today. Recheck potassium and magnesium level tomorrow.
[2020-08-31] VITALS (29 sets, daily range): BP systolic 107–165; BP diastolic 29–80; PULSE 68–103; RESP 20–38; TEMP 36.4–38.8; O2SAT 90–98
[2020-08-31] MEDS: Insulin Lispro 100 UNIT/ML INSULN.PEN SC ×5 (00:15→23:23)
[2020-08-31] MEDS: Acetaminophen 325 MG Tablet 650 MG PO ×2 (00:16→14:38)
[2020-08-31 05:59] LABS: Absolute Lymphocyte Count 0.75 X10^3/uL (0.83-4.51); Absolute Neutrophil Count 8.7 X10^3/uL (2.0-7.7); Basophil# 0.04 X10^3/uL; Basophil% 0.4 % (0-1); Eosinophil# 0.09 X10^3/uL; Eosinophils% 0.9 % (0-5); Hematocrit 30.2 % (40-54); Lymphocyte # 0.75 X10^3/ul (0.83-4.51); Lymphocyte % 7.3 % (19-41); Mean Corp Hgb Conc 33.1 g/dL (32-36); Mean Corpuscular Hgb 28.6 pg (27.0-32.0); Mean Corpuscular Volume 86.3 fL (80-94); Mean Platelet Vol. 11.5 fl (6.2-12.0); Monocyte# 0.47 X10^3/uL; Monocyte% 4.6 % (0-10); NRBC Flagged by Analyzer 0.3 % (0-5); Neutrophil # 8.72 X10^3/uL (2.7-7.7); Neutrophil % 84.9 % (47-70); Platelet Count 212 K/mm3 (150-450); RBC Distribution Width CV 14.2 % (11.6-14.6); RBC Distribution Width SD 44.9 fl (35.1-43.9); White Blood Count 10.3 K/mm3 (4.4-11.0)
[2020-08-31] MEDS: Heparin Injection (Vial) 5,000 UNIT/ML VIAL 5000 UNIT SC ×3 (06:04→21:16)
[2020-08-31] MEDS: 0.9% Saline Lock 10 ML Syringe IV (06:04)
[2020-08-31 06:10] LABS: Anion Gap 5 (5-15); BUN 31 mg/dL (7-18); BUN/Creat Ratio 22.5 RATIO (10-20); Calcium,Total 7.8 mg/dL (8.5-10.1); Chloride 109 mmol/L (98-107); Creatinine, Serum 1.38 mg/dL (0.70-1.30); EST Glomerular Filtration Rate 55 mL/min (>60); Est Glom Filt Rate - Afr Amer 67 mL/min (>60); Estimated Creatinine Clearance 50.56 ml/min; Glucose 238 mg/dL (74-106); Magnesium 2.2 mg/dL (1.6-2.6); Potassium 4.2 mmol/L (3.5-5.1); Sodium Level 140 mmol/L (136-145)
[2020-08-31] MEDS: Ipratropium/Albuterol Sulfate 3 ML AMPUL.NEB INHALATION ×2 (06:31→18:38)
--- NOTE | 2020-08-31 07:27 | PN.CC_ITS ---
Assessment & Plan Assessment/Plan (1) Septic shock: PLAN: RECOMMENDATIONS: 1. Continue broad-spectrum antimicrobials. 2. Recommend conservative use of fluids, given hemodynamic stability. 3. Follow speech recommendations for p.o. diet 4. Hold on diuresis given high insensible losses 5. Wean oxygen as tolerated and continue bronchodilator therapy 6. Encourage incentive spirometer use and mobilize patient as tolerated. IMPRESSIONS: 1. Septic shock Suspect that this is likely multifactorial in etiology with Legionella pneumonia and underlying urinary tract source of infection contributing. The patient will be continued on broad antimicrobials, pending further infectious work-up. He has been adequately volume resuscitated at this time. Central line has been removed. No indication for need of pressors. Patient may have an element of aspiration pneumonia in addition to Legionella. Would consider addition of azithromycin or Levaquin. P.o. intake per speech therapy 2. Acute hypoxemic respiratory failure Although the patient has a documented history of COPD, he has never been evaluated by a agricultural engineer or completed pulmonary function studies. In addition, he does not utilize inhalers at his baseline. Echocardiogram was relatively unremarkable. Patient does have Legionella antigen and a dense right lower lobe infiltrate. Some concern for aspiration pneumonia, so would continue aspiration antibiotics. 3. Acute kidney injury Improving. Clinical concern for prerenal etiology versus ischemic ATN in the setting of #1. The patient has been volume resuscitated with improving creatinine noted. Nephrology is currently following. Continue to monitor urine output for now. No current indication for renal replacement therapy. Okay to discontinue Rodríguez from my perspective 4. Metabolic encephalopathy Improved. Likely metabolic in etiology and related to underlying infectious processes and underlying renal insufficiency. The patient is much more alert and appropriate this morning with supportive measures. CT head was negative. Continue measures as noted above. 5. Hypertension/history of coronary artery disease/diabetes mellitus Complicates care, management, recovery and prognosis. Continue to hold home antihypertensives. This note was generated with [employer] dictation software. It may contain incorrect words, spelling, and punctuation that were not noted in checking the note before signing. Subjective Subjective Patient did well overnight. Patient did have some difficulty associated with high fevers. Patient also reported some abdominal pain that was secondary to an obstructed Rodríguez. Patient reports somewhat worse subjective situation today, but currently has a fever. Patient denies any chest pain. Objective Data Objective Data Vital Signs: Vital Signs Temp Pulse Resp BP Pulse Ox 38.3 C H 78 26 H 132/71 H 95 08/31/20 06:00 08/31/20 07:00 08/31/20 07:00 08/31/20 07:00 08/31/20 07:00 Oxygen Flow Rate (L/min) 4 Oxygen Delivery Method Nasal Cannula Weight: 81.9 kg Body Mass Index (BMI) 27.1 Intake & Output: Intake and Output for Last 24 Hours 08/29/20 08/30/20 08/31/20 23:59 23:59 23:59 Intake Total 3894.25 / 3894.25 3110.25 / 3310.25 862 / 862 Output Total 1350 / 2050 2475 / 2875 1000 / 1000 Balance 2544.25 / 1844.25 635.25 / 435.25 -138 / -138 Lab / Micro Data Result Diagrams: 08/31/20 05:50 08/31/20 05:50 Labs: Laboratory Results - last 24 hr 08/30/20 08/30/20 08/31/20 06:31 11:50 05:50 WBC 10.3 RBC 3.50 L Hgb 10.0 L Hct 30.2 L MCV 86.3 MCH 28.6 MCHC 33.1 RDW Std Deviation 44.9 H RDW Coeff of Barbara 14.2 Plt Count 212 MPV 11.5 Immature Gran % (Auto) 1.900 H Neut % (Auto) 84.9 H Lymph % (Auto) 7.3 L [place] % (Auto) 4.6 Eos % (Auto) 0.9 Baso % (Auto) 0.4 Absolute Neuts (auto) 8.7 H Absolute Lymphs (auto) 0.75 L Nucleated RBC % 0.3 Sodium Potassium Chloride Carbon Dioxide Anion Gap BUN Creatinine Estim Creat Clear Calc Est GFR (MDRD) Af Amer Est GFR (MDRD) Non-Af BUN/Creatinine Ratio Glucose Calcium Magnesium POC Glucose 217 H 193 H 08/31/20 05:50 WBC RBC Hgb Hct MCV MCH MCHC RDW Std Deviation RDW Coeff of Barbara Plt Count MPV Immature Gran % (Auto) Neut % (Auto) Lymph % (Auto) [place] % (Auto) Eos % (Auto) Baso % (Auto) Absolute Neuts (auto) Absolute Lymphs (auto) Nucleated RBC % Sodium 140 Potassium 4.2 Chloride 109 H Carbon Dioxide 26.0 Anion Gap 5 BUN 31 H Creatinine 1.38 H Estim Creat Clear Calc 50.56 Est GFR (MDRD) Af Amer 67 Est GFR (MDRD) Non-Af 55 L BUN/Creatinine Ratio 22.5 H Glucose 238 H Calcium 7.8 L Magnesium 2.2 POC Glucose Micro: Microbiology 08/28/20 11:55 Urine Catheter - Catheter Urine Culture - Final Culture exhibits no growth. 08/28/20 10:55 Blood Culture (Wb) - Left Wrist Blood Culture - Preliminary No growth in 48 hours. 08/28/20 12:00 Blood Culture (Wb) - Anticubital Left Blood Culture - Preliminary No growth in 48 hours. 08/28/20 11:55 Urine, Clean Catch Urine Culture - Final Culture exhibits no growth. 08/28/20 14:47 Mucosa - Nose Respiratory Panel (PCR) - Final 08/28/20 11:55 Urine Catheter - Catheter Streptococcus pneumoniae Antigen (M - Final 08/28/20 11:55 Urine Catheter - Catheter Legionella Antigen - Final Legionella Antigen 08/28/20 11:00 Mucosa - Nose SARS-CoV-2 Antigen (Rapid) - Final Radiography Diagnostic Testing: Radiology Impression Echocardiogram 08/29/20 07:21 Interpretation Summary Normal LV size. Left ventricular systolic function is normal. The estimated ejection fraction is 55 %. Pulmonary artery systolic pressure is 35 mmHg. Contrast injection was performed. Ordering Physician: Abdi Jeff Referring Physician: Ori Elias Performed By: Robyn Garcia, LAYTON, RVT Physical Exam Const alert and no apparent distress Constitutional Narrative: Extremely hard of hearing. General Appearance: cooperative HEENT normocephalic and head/scalp atraumatic Eyes PERRL and EOMs intact bilaterally Neck supple General: trachea midline Resp normal respiratory effort Resp Narrative: End expiratory wheezing noted Effort and Inspection: tachypneic Auscultation: Negative for rales or rhonchi Cardio regular rate, regular rhythm, S1 normal heart sound and S2 normal heart sound Heart Sounds: Negative for gallop, murmur or rub GI normal to inspection, nondistended, normoactive bowel sounds Extremity no clubbing, cyanosis or edema Skin no rashes or lesions noted Neuro CN's II-XII intact bilaterally, moves all extremities and no focal motor deficits Psych Mood & Affect: flat affect Charges/Coding Visit Charges Inpatient E&M: 67035 Subs Hosp L3
[2020-08-31 08:38] LABS: Bedside Glucose 163 mg/dL (70-110)
[2020-08-31 08:38] LABS: Bedside Glucose 155 mg/dL (70-110)
[2020-08-31 08:38] LABS: Bedside Glucose 179 mg/dL (70-110)
--- NOTE | 2020-08-31 10:05 | PN.RENAL_ITS ---
Subjective Subjective Following for acute kidney injury on chronic kidney disease. The patient denies chest pain, shortness of breath, or nausea. Appetite is still poor. He also had diarrhea today per RN. Objective Data Objective Data Vital Signs: Vital Signs Temp Pulse Resp BP Pulse Ox 101.8 F H 77 25 H 128/80 H 92 08/31/20 08:00 08/31/20 08:00 08/31/20 08:00 08/31/20 08:00 08/31/20 08:00 Oxygen Flow Rate (L/min) 5 Oxygen Delivery Method Nasal Cannula Weight: 81.9 kg Body Mass Index (BMI) 27.1 Intake & Output: Intake and Output for Last 24 Hours 08/29/20 08/30/20 08/31/20 23:59 23:59 23:59 Intake Total 3894.25 / 3894.25 3110.25 / 3310.25 862 / 862 Output Total 1350 / 2050 2475 / 2875 1350 / 1350 Balance 2544.25 / 1844.25 635.25 / 435.25 -488 / -488 Lab / Micro Data Result Diagrams: 08/31/20 05:50 08/31/20 05:50 Labs: Laboratory Results - last 24 hr 08/30/20 08/30/20 08/30/20 06:31 11:50 17:40 WBC RBC Hgb Hct MCV MCH MCHC RDW Std Deviation RDW Coeff of Barbara Plt Count MPV Immature Gran % (Auto) Neut % (Auto) Lymph % (Auto) [place] % (Auto) Eos % (Auto) Baso % (Auto) Absolute Neuts (auto) Absolute Lymphs (auto) Nucleated RBC % Sodium Potassium Chloride Carbon Dioxide Anion Gap BUN Creatinine Estim Creat Clear Calc Est GFR (MDRD) Af Amer Est GFR (MDRD) Non-Af BUN/Creatinine Ratio Glucose Calcium Magnesium POC Glucose 217 H 193 H 179 H 08/31/20 08/31/20 08/31/20 00:13 05:50 05:50 WBC 10.3 RBC 3.50 L Hgb 10.0 L Hct 30.2 L MCV 86.3 MCH 28.6 MCHC 33.1 RDW Std Deviation 44.9 H RDW Coeff of Barbara 14.2 Plt Count 212 MPV 11.5 Immature Gran % (Auto) 1.900 H Neut % (Auto) 84.9 H Lymph % (Auto) 7.3 L [place] % (Auto) 4.6 Eos % (Auto) 0.9 Baso % (Auto) 0.4 Absolute Neuts (auto) 8.7 H Absolute Lymphs (auto) 0.75 L Nucleated RBC % 0.3 Sodium 140 Potassium 4.2 Chloride 109 H Carbon Dioxide 26.0 Anion Gap 5 BUN 31 H Creatinine 1.38 H Estim Creat Clear Calc 50.56 Est GFR (MDRD) Af Amer 67 Est GFR (MDRD) Non-Af 55 L BUN/Creatinine Ratio 22.5 H Glucose 238 H Calcium 7.8 L Magnesium 2.2 POC Glucose 155 H 08/31/20 06:02 WBC RBC Hgb Hct MCV MCH MCHC RDW Std Deviation RDW Coeff of Barbara Plt Count MPV Immature Gran % (Auto) Neut % (Auto) Lymph % (Auto) [place] % (Auto) Eos % (Auto) Baso % (Auto) Absolute Neuts (auto) Absolute Lymphs (auto) Nucleated RBC % Sodium Potassium Chloride Carbon Dioxide Anion Gap BUN Creatinine Estim Creat Clear Calc Est GFR (MDRD) Af Amer Est GFR (MDRD) Non-Af BUN/Creatinine Ratio Glucose Calcium Magnesium POC Glucose 163 H Micro: Microbiology 08/28/20 11:55 Urine Catheter - Catheter Urine Culture - Final Culture exhibits no growth. 08/28/20 10:55 Blood Culture (Wb) - Left Wrist Blood Culture - Preliminary No growth in 48 hours. 08/28/20 12:00 Blood Culture (Wb) - Anticubital Left Blood Culture - Preliminary No growth in 48 hours. 08/28/20 11:55 Urine, Clean Catch Urine Culture - Final Culture exhibits no growth. 08/28/20 14:47 Mucosa - Nose Respiratory Panel (PCR) - Final 08/28/20 11:55 Urine Catheter - Catheter Streptococcus pneumoniae Antigen (M - Final 08/28/20 11:55 Urine Catheter - Catheter Legionella Antigen - Final Legionella Antigen 08/28/20 11:00 Mucosa - Nose SARS-CoV-2 Antigen (Rapid) - Final Radiography Diagnostic Testing: Radiology Impression Echocardiogram 08/29/20 07:21 Interpretation Summary Normal LV size. Left ventricular systolic function is normal. The estimated ejection fraction is 55 %. Pulmonary artery systolic pressure is 35 mmHg. Contrast injection was performed. Ordering Physician: Abdi Jeff Referring Physician: Ori Elias Performed By: Robyn Garcia, MORACS, RVT Physical Exam Narrative Patient is awake alert oriented. Neck: No JVD. No lymphadenopathy. HEENT: AT NC, mucous membrane moist. Heart: S1/S2 regular. Chest: Clear to auscultation anteriorly. Abdomen: soft + BS, no distention, no pain on palpation. Ext: No edema Neuro: No focal deficit Assessment & Plan Assessment/Plan (1) Acute kidney injury: PLAN: Unknown baseline serum creatinine. Serum creatinine peaked at 3.69 mg/dL on 08/28/2020. There has been a gradual improvement of renal function since then with volume repletion. Serum creatinine is down to 1.38 today. Suspect the patient has ischemic ATN. Renal function has continued to improve the last 24 hours. However, the patient is still not eating well. Moreover, he has diarrhea today. Continue IV fluid for now. Reassess volume status and intake tomorrow. Continue to hold lisinopril until renal function stabilizes. Recheck renal function panel again tomorrow. (2) Essential (primary) hypertension: PLAN: BP is stable off of usual antihypertensives including lisinopril, Maxide, and amlodipine. (3) Hypokalemia: PLAN: Potassium level has continued to remain stable. Potassium level is 4.2 and magnesium level is 2.2 today. The patient is on potassium containing IV fluid which will be continued today. Recheck potassium level tomorrow. (4) Severe sepsis: PLAN: Likely due to pneumonia. Antibiotics as per primary team. Dose of antibiotics are acceptable for the patient's estimated creatinine clearance. (5) Pneumonia: QUALIFIERS: Pneumonia type: aspiration pneumonia Aspiration pneumonia type: unspecified Laterality: right Lung location: lower lobe of lung Qualified Code(s): J69.0 - Pneumonitis due to inhalation of food and vomit PLAN: As above.
[2020-08-31] MEDS: Ketorolac 15 MG/ML Vial IV (10:48)
[2020-08-31] MEDS: Menthol/Lanolin/Calamine/Znox 113 GM Tube 1 APPLIC TOPICAL ×2 (10:51→21:14)
[2020-08-31] MEDS: CHLORHEXIDINE GLUC 2% CLOTH 1 EACH TOWELETTE TOPICAL (10:51)
[2020-08-31 11:16] LABS: Bedside Glucose 217 mg/dL (70-110)
--- NOTE | 2020-08-31 13:51 | CM.ED ---
TRISTA Note Referral Source: Occupational Health Nursing Director Referral Reason: Requests Advanced Directive, Self Pay and Medicaid application. SW met with patient in his room and provided him with self pay packet including information on [facility]. [facility] met with patient to complete the Medicaid Application. [facility] faxed the Medicaid application to [facility]. Original given to patient and copy in chart. SW offered to complete the Advanced Directives with him but patient said that he was too tired and requested that social insurance administrator come back the following day to complete the advanced directives. [facility] provided patient with senior care facilities in [facility]. Plan: To be determined. Sarina RASHID
[2020-08-31] MEDS: KCL 20MEQ in D5.45NS 20 MEQ/1,000 ML IV.SOLN. 75 MEQ IV (14:30)
[2020-08-31 16:56] LABS: Bedside Glucose 155 mg/dL (70-110)
--- NOTE | 2020-08-31 17:30 | PCM.PN.HOSP ---
Subjective Subjective He did develop fevers overnight, but otherwise feels well. Objective Data Objective Data Vital Signs: Vital Signs Temp Pulse Resp BP Pulse Ox 97.6 F L 76 22 H 133/74 H 95 08/31/20 12:00 08/31/20 17:00 08/31/20 17:00 08/31/20 17:00 08/31/20 17:00 Oxygen Flow Rate (L/min) 4 Oxygen Delivery Method Nasal Cannula Weight: 180 lb 8.937 oz Body Mass Index (BMI) 27.1 Intake & Output: Intake and Output for Last 24 Hours 08/30/20 08/31/20 09/01/20 03:59 03:59 03:59 Intake Total 2446.75 / 2446.75 3260.25 / 3260.25 1815.25 / 1815.25 Output Total 1850 / 1850 2175 / 2175 1250 / 1250 Balance 596.75 / 596.75 1085.25 / 1085.25 565.25 / 565.25 Lab / Micro Data Result Diagrams: 08/31/20 05:50 08/31/20 05:50 Labs: Laboratory Results - last 24 hr 08/30/20 08/31/20 08/31/20 17:40 00:13 05:50 WBC 10.3 RBC 3.50 L Hgb 10.0 L Hct 30.2 L MCV 86.3 MCH 28.6 MCHC 33.1 RDW Std Deviation 44.9 H RDW Coeff of Abrbara 14.2 Plt Count 212 MPV 11.5 Immature Gran % (Auto) 1.900 H Neut % (Auto) 84.9 H Lymph % (Auto) 7.3 L [place] % (Auto) 4.6 Eos % (Auto) 0.9 Baso % (Auto) 0.4 Absolute Neuts (auto) 8.7 H Absolute Lymphs (auto) 0.75 L Nucleated RBC % 0.3 Sodium Potassium Chloride Carbon Dioxide Anion Gap BUN Creatinine Estim Creat Clear Calc Est GFR (MDRD) Af Amer Est GFR (MDRD) Non-Af BUN/Creatinine Ratio Glucose Calcium Magnesium POC Glucose 179 H 155 H 08/31/20 08/31/20 08/31/20 05:50 06:02 10:53 WBC RBC Hgb Hct MCV MCH MCHC RDW Std Deviation RDW Coeff of Barbara Plt Count MPV Immature Gran % (Auto) Neut % (Auto) Lymph % (Auto) [place] % (Auto) Eos % (Auto) Baso % (Auto) Absolute Neuts (auto) Absolute Lymphs (auto) Nucleated RBC % Sodium 140 Potassium 4.2 Chloride 109 H Carbon Dioxide 26.0 Anion Gap 5 BUN 31 H Creatinine 1.38 H Estim Creat Clear Calc 50.56 Est GFR (MDRD) Af Amer 67 Est GFR (MDRD) Non-Af 55 L BUN/Creatinine Ratio 22.5 H Glucose 238 H Calcium 7.8 L Magnesium 2.2 POC Glucose 163 H 217 H 08/31/20 16:41 WBC RBC Hgb Hct MCV MCH MCHC RDW Std Deviation RDW Coeff of Barbara Plt Count MPV Immature Gran % (Auto) Neut % (Auto) Lymph % (Auto) [place] % (Auto) Eos % (Auto) Baso % (Auto) Absolute Neuts (auto) Absolute Lymphs (auto) Nucleated RBC % Sodium Potassium Chloride Carbon Dioxide Anion Gap BUN Creatinine Estim Creat Clear Calc Est GFR (MDRD) Af Amer Est GFR (MDRD) Non-Af BUN/Creatinine Ratio Glucose Calcium Magnesium POC Glucose 155 H Micro: Microbiology 08/28/20 11:55 Urine Catheter - Catheter Urine Culture - Final Culture exhibits no growth. 08/28/20 10:55 Blood Culture (Wb) - Left Wrist Blood Culture - Preliminary No growth in 48 hours. 08/28/20 12:00 Blood Culture (Wb) - Anticubital Left Blood Culture - Preliminary No growth in 48 hours. 08/28/20 11:55 Urine, Clean Catch Urine Culture - Final Culture exhibits no growth. 08/28/20 14:47 Mucosa - Nose Respiratory Panel (PCR) - Final 08/28/20 11:55 Urine Catheter - Catheter Streptococcus pneumoniae Antigen (M - Final 08/28/20 11:55 Urine Catheter - Catheter Legionella Antigen - Final Legionella Antigen 08/28/20 11:00 Mucosa - Nose SARS-CoV-2 Antigen (Rapid) - Final Physical Exam Const alert, oriented x3 and no apparent distress General Appearance: cooperative HEENT normocephalic Eyes PERRL and EOMs intact bilaterally Neck supple and no JVD Resp normal respiratory effort, no retractions, no use of accessory muscles and clear to auscultation bilaterally Auscultation: Negative for crackles, rales, rhonchi or wheezes Cardio regular rate, regular rhythm, S1 normal heart sound, S2 normal heart sound and no murmurs GI soft to palpation, non-tender and non-distended; Negative for hepatosplenomegaly Extremity no clubbing, cyanosis or edema Skin no rashes or lesions noted Neuro no focal motor deficits and no sensory deficits noted Psych affect normal Appearance: appropriate Assessment & Plan Assessment/Plan (1) Severe sepsis: (2) Pneumonia: QUALIFIERS: Pneumonia type: aspiration pneumonia Aspiration pneumonia type: unspecified Laterality: right Lung location: lower lobe of lung Qualified Code(s): J69.0 - Pneumonitis due to inhalation of food and vomit (3) Acute kidney injury: (4) Elevated troponin: (5) Essential (primary) hypertension: (6) Type 2 diabetes mellitus: PLAN: Patient is a 65-year-old gentleman admitted with altered mental status 1. Septic shock ?Secondary to pneumonia with suspected MDR's as well as acute cystitis. Patient has been admitted to the intensive care unit being managed with aggressive IV fluid resuscitation, broad-spectrum antibiotic therapy with Zosyn and vancomycin after cultures have been obtained. Patient progressed being monitored with lactic acid level as well as periodic examination -08/29/2020; patient remains on broad-spectrum antibiotic therapy. Urine Legionella antigen came back positive. Patient seen in consultation by Dr. Jeff with intensive care. ?08/30/2020: Can discontinue Zosyn and vancomycin, urine cultures unremarkable. Given his positive Legionella, will place him back on azithromycin and transition him to Unasyn to cover for aspiration pneumonia. Speech therapy to evaluate today -08/31/2020: Continue with Unasyn and azithromycin to cover his Legionella and his aspiration. He did pass speech therapy evaluation, and can take p.o. 2. Acute respiratory insufficiency ?Secondary to pneumonia with MDR antibiotic therapy as discussed above. Patient placed on supplemental oxygen titrated to keep saturation greater than 90 ?08/29/2020; urine Legionella antigen came back positive -08/30/2020: See #1 3. Acute kidney injury ?Secondary to ATN from severe sepsis on IV fluid with subsequent monitoring of electrolytes -08/29/2020 patient was seen in consultation by Dr. Herring with nephrology -08/30/2020: Renal function appears to be improving, appreciate nephrology's assistance 4. Diabetes mellitus type 2 ?Complicated by episodes of hypoglycemia patient be managed with D5 with every 4 glucose checks 5. Essential hypertension ?Patient blood pressure was low on admission antihypertensives on hold 6. Elevated troponin ?Secondary to non-STEMI type II from sepsis 7. Coronary artery disease -History of previous VT DVT: Heparin Charges/Coding Visit Charges Inpatient E&M: 92485 Subs Hosp L2
[2020-08-31 23:40] LABS: Bedside Glucose 176 mg/dL (70-110)
[2020-09-01] VITALS (38 sets, daily range): BP systolic 109–153; BP diastolic 58–83; PULSE 60–106; RESP 19–34; TEMP 36.4–37.1; O2SAT 88–100
[2020-09-01] MEDS: KCL 20MEQ in D5.45NS 20 MEQ/1,000 ML IV.SOLN. 75 MEQ IV (03:50)
[2020-09-01 05:03] LABS: Absolute Lymphocyte Count 0.76 X10^3/uL (0.83-4.51); Absolute Neutrophil Count 10.3 X10^3/uL (2.0-7.7); Basophil# 0.07 X10^3/uL; Basophil% 0.6 % (0-1); Eosinophil# 0.21 X10^3/uL; Eosinophils% 1.7 % (0-5); Hematocrit 31.7 % (40-54); Hemoglobin 10.4 g/dL (13.0-16.5); Lymphocyte # 0.76 X10^3/ul (0.83-4.51); Lymphocyte % 6.1 % (19-41); Mean Corp Hgb Conc 32.8 g/dL (32-36); Mean Corpuscular Hgb 28.2 pg (27.0-32.0); Mean Corpuscular Volume 85.9 fL (80-94); Mean Platelet Vol. 11.3 fl (6.2-12.0); Monocyte# 0.51 X10^3/uL; Monocyte% 4.1 % (0-10); NRBC Flagged by Analyzer 0.2 % (0-5); Neutrophil # 10.29 X10^3/uL (2.7-7.7); Neutrophil % 83.1 % (47-70); Platelet Count 323 K/mm3 (150-450); RBC Distribution Width CV 13.9 % (11.6-14.6); RBC Distribution Width SD 43.9 fl (35.1-43.9); Red Blood Count 3.69 M/mm3 (4.6-6.2); White Blood Count 12.4 K/mm3 (4.4-11.0)
[2020-09-01 05:22] LABS: Anion Gap 6 (5-15); BUN 23 mg/dL (7-18); BUN/Creat Ratio 20.7 RATIO (10-20); Calcium,Total 8.1 mg/dL (8.5-10.1); Chloride 109 mmol/L (98-107); Creatinine, Serum 1.11 mg/dL (0.70-1.30); EST Glomerular Filtration Rate 71 mL/min (>60); Est Glom Filt Rate - Afr Amer 86 mL/min (>60); Estimated Creatinine Clearance 62.86 ml/min; Glucose 205 mg/dL (74-106); Potassium 3.8 mmol/L (3.5-5.1); Sodium Level 141 mmol/L (136-145)
[2020-09-01] MEDS: Insulin Lispro 100 UNIT/ML INSULN.PEN SC ×3 (06:33→21:36)
[2020-09-01] MEDS: Heparin Injection (Vial) 5,000 UNIT/ML VIAL 5000 UNIT SC ×3 (06:34→21:37)
[2020-09-01 06:36] LABS: Bedside Glucose 194 mg/dL (70-110)
[2020-09-01] MEDS: Ipratropium/Albuterol Sulfate 3 ML AMPUL.NEB INHALATION ×3 (06:57→19:11)
--- NOTE | 2020-09-01 07:25 | PN.CC_ITS ---
Assessment & Plan Assessment/Plan (1) Septic shock: PLAN: RECOMMENDATIONS: 1. Continue broad-spectrum antimicrobials. 2. Recommend conservative use of fluids, given hemodynamic stability. 3. Follow speech recommendations for p.o. diet 4. Hold on diuresis given high insensible losses 5. Wean oxygen as tolerated and continue bronchodilator therapy 6. Encourage incentive spirometer use and mobilize patient as tolerated. IMPRESSIONS: 1. Septic shock Suspect that this is likely multifactorial in etiology with Legionella pneumonia and underlying urinary tract source of infection contributing. The patient will be continued on broad antimicrobials, pending further infectious work-up. He has been adequately volume resuscitated at this time. Central line has been removed. No indication for need of pressors. Patient may have an element of aspiration pneumonia in addition to Legionella. Some concern that the patient will develop a secondary infectious process given lack of compliance with incentive spirometer and mobility with back pain. P.o. intake per speech therapy 2. 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 In addition, he does not utilize inhalers at his baseline. Echocardiogram was relatively unremarkable. Patient does have Legionella antigen and a dense right lower lobe infiltrate. Some concern for aspiration pneumonia, so would continue aspiration antibiotics. Speech is following. Stressed to the patient that incentive spirometer will be vital for pulmonary recruitment. Doubt patient would tolerate Acapella or vest therapy given concomitant back pain. 3. Acute kidney injury Improving. Clinical concern for prerenal etiology versus ischemic ATN in the setting of #1. The patient has been volume resuscitated with improving creatinine noted. Nephrology is currently following. Continue to monitor urine output for now. No current indication for renal replacement therapy. Okay to discontinue Rodríguez from my perspective 4. Metabolic encephalopathy Improved. Likely metabolic in etiology and related to underlying infectious processes and underlying renal insufficiency. The patient is much more alert and appropriate this morning with supportive measures. CT head was negative. Continue measures as noted above. 5. Hypertension/history of coronary artery disease/diabetes mellitus/back pain Complicates care, management, recovery and prognosis. Okay to reinitiate home antihypertensives in a stepwise fashion from my perspective. Patient appears to have musculoskeletal lower back pain exacerbated by coughing and lack of mobility. Encourage incentive spirometer and out of bed as tolerated. This note was generated with Dragon dictation software. It may contain incorrect words, spelling, and punctuation that were not noted in checking the note before signing. Subjective Subjective Patient did okay overnight. Patient is still requiring significant nasal cannula oxygen to maintain saturations. Patient continues to have intermittent fevers. Patient is reporting significant lower back pain that radiates to the hip. Patient states this is exacerbated by deep inhalation. Patient has had some diarrhea noted. Objective Data Objective Data Vital Signs: Vital Signs Temp Pulse Resp BP Pulse Ox 37.1 C 77 19 H 135/63 H 97 09/01/20 04:00 09/01/20 06:57 09/01/20 06:57 09/01/20 06:00 09/01/20 07:00 Oxygen Flow Rate (L/min) 5 Oxygen Delivery Method Nasal Cannula Weight: 81.1 kg Body Mass Index (BMI) 27.1 Intake & Output: Intake and Output for Last 24 Hours 08/30/20 08/31/20 09/01/20 23:59 23:59 23:59 Intake Total 3110.25 / 3310.25 2127.25 / 2127.25 1292 / 1292 Output Total 2475 / 2875 1900 / 2250 900 / 900 Balance 635.25 / 435.25 227.25 / -122.75 392 / 392 Lab / Micro Data Result Diagrams: 09/01/20 04:50 09/01/20 04:50 Labs: Laboratory Results - last 24 hr 08/30/20 08/31/20 08/31/20 17:40 00:13 06:02 WBC RBC Hgb Hct MCV MCH MCHC RDW Std Deviation RDW Coeff of Barbara Plt Count MPV Immature Gran % (Auto) Neut % (Auto) Lymph % (Auto) [place] % (Auto) Eos % (Auto) Baso % (Auto) Absolute Neuts (auto) Absolute Lymphs (auto) Nucleated RBC % Sodium Potassium Chloride Carbon Dioxide Anion Gap BUN Creatinine Estim Creat Clear Calc Est GFR (MDRD) Af Amer Est GFR (MDRD) Non-Af BUN/Creatinine Ratio Glucose Calcium POC Glucose 179 H 155 H 163 H 08/31/20 08/31/20 08/31/20 10:53 16:41 23:22 WBC RBC Hgb Hct MCV MCH MCHC RDW Std Deviation RDW Coeff of Barbara Plt Count MPV Immature Gran % (Auto) Neut % (Auto) Lymph % (Auto) [place] % (Auto) Eos % (Auto) Baso % (Auto) Absolute Neuts (auto) Absolute Lymphs (auto) Nucleated RBC % Sodium Potassium Chloride Carbon Dioxide Anion Gap BUN Creatinine Estim Creat Clear Calc Est GFR (MDRD) Af Amer Est GFR (MDRD) Non-Af BUN/Creatinine Ratio Glucose Calcium POC Glucose 217 H 155 H 176 H 09/01/20 09/01/20 09/01/20 04:50 04:50 06:31 WBC 12.4 H RBC 3.69 L Hgb 10.4 L Hct 31.7 L MCV 85.9 MCH 28.2 MCHC 32.8 RDW Std Deviation 43.9 RDW Coeff of Barbara 13.9 Plt Count 323 MPV 11.3 Immature Gran % (Auto) 4.400 H Neut % (Auto) 83.1 H Lymph % (Auto) 6.1 L [place] % (Auto) 4.1 Eos % (Auto) 1.7 Baso % (Auto) 0.6 Absolute Neuts (auto) 10.3 H Absolute Lymphs (auto) 0.76 L Nucleated RBC % 0.2 Sodium 141 Potassium 3.8 Chloride 109 H Carbon Dioxide 26.0 Anion Gap 6 BUN 23 H Creatinine 1.11 Estim Creat Clear Calc 62.86 Est GFR (MDRD) Af Amer 86 Est GFR (MDRD) Non-Af 71 BUN/Creatinine Ratio 20.7 H Glucose 205 H Calcium 8.1 L POC Glucose 194 H Micro: Microbiology 08/28/20 11:55 Urine Catheter - Catheter Urine Culture - Final Culture exhibits no growth. 08/28/20 10:55 Blood Culture (Wb) - Left Wrist Blood Culture - Preliminary No growth in 48 hours. 08/28/20 12:00 Blood Culture (Wb) - Anticubital Left Blood Culture - Preliminary No growth in 48 hours. 08/28/20 11:55 Urine, Clean Catch Urine Culture - Final Culture exhibits no growth. 08/28/20 14:47 Mucosa - Nose Respiratory Panel (PCR) - Final 08/28/20 11:55 Urine Catheter - Catheter Streptococcus pneumoniae Antigen (M - Final 08/28/20 11:55 Urine Catheter - Catheter Legionella Antigen - Final Legionella Antigen 08/28/20 11:00 Mucosa - Nose SARS-CoV-2 Antigen (Rapid) - Final Physical Exam Const alert and no apparent distress Constitutional Narrative: Extremely hard of hearing. General Appearance: cooperative HEENT normocephalic and head/scalp atraumatic Eyes PERRL and EOMs intact bilaterally Neck supple General: trachea midline Resp normal respiratory effort Resp Narrative: End expiratory wheezing noted Effort and Inspection: tachypneic Auscultation: Negative for rales or rhonchi Cardio regular rate, regular rhythm, S1 normal heart sound and S2 normal heart sound Heart Sounds: Negative for gallop, murmur or rub GI normal to inspection, nondistended, normoactive bowel sounds Extremity no clubbing, cyanosis or edema Skin no rashes or lesions noted Neuro CN's II-XII intact bilaterally, moves all extremities and no focal motor deficits Psych Mood & Affect: flat affect Charges/Coding Visit Charges Inpatient E&M: 16890 Subs Hosp L3
[2020-09-01] MEDS: Menthol/Lanolin/Calamine/Znox 113 GM Tube 1 APPLIC TOPICAL ×2 (09:26→21:37)
[2020-09-01] MEDS: CHLORHEXIDINE GLUC 2% CLOTH 1 EACH TOWELETTE TOPICAL (09:26)
[2020-09-01] MEDS: amLODIPine 2.5 MG Tablet PO (09:27)
[2020-09-01] MEDS: Ketorolac 30 MG/ML Syringe IV (09:56)
--- NOTE | 2020-09-01 10:54 | CASEMGMT ---
SW met w/pt, spoke w/him about participating in therapy today, and spoke w/pt about going to SNF. Pt adamantly declined going somewhere for rehab, states he is going home. Pt did agree to complete POA. SW assisted pt in completing POA form, SW gave pt original and copies, copy placed in chart. Pt declined to complete LW. SW remains available for any additional social service needs. RAJAN Colbert
--- NOTE | 2020-09-01 11:20 | PCM.PN.HOSP ---
Subjective Subjective Complaining of back pain and does want to take deep breaths. Encouraged to use his incentive spirometer secondary to the risk of worsening pneumonia Objective Data Objective Data Vital Signs: Vital Signs Temp Pulse Resp BP Pulse Ox 98.8 F 83 30 H 128/69 H 92 09/01/20 04:00 09/01/20 11:00 09/01/20 11:00 09/01/20 11:00 09/01/20 11:00 Oxygen Flow Rate (L/min) 6 Oxygen Delivery Method Nasal Cannula Weight: 178 lb 12.718 oz Body Mass Index (BMI) 27.1 Intake & Output: Intake and Output for Last 24 Hours 08/31/20 09/01/20 09/02/20 03:59 03:59 03:59 Intake Total 3260.25 / 3260.25 2927.25 / 3107.25 918.25 / 918.25 Output Total 2175 / 2175 1850 / 2400 1025 / 1025 Balance 1085.25 / 1085.25 1077.25 / 707.25 -106.75 / -106.75 Lab / Micro Data Result Diagrams: 09/01/20 04:50 09/01/20 04:50 Labs: Laboratory Results - last 24 hr 08/31/20 08/31/20 09/01/20 16:41 23:22 04:50 WBC 12.4 H RBC 3.69 L Hgb 10.4 L Hct 31.7 L MCV 85.9 MCH 28.2 MCHC 32.8 RDW Std Deviation 43.9 RDW Coeff of Barbara 13.9 Plt Count 323 MPV 11.3 Immature Gran % (Auto) 4.400 H Neut % (Auto) 83.1 H Lymph % (Auto) 6.1 L [place] % (Auto) 4.1 Eos % (Auto) 1.7 Baso % (Auto) 0.6 Absolute Neuts (auto) 10.3 H Absolute Lymphs (auto) 0.76 L Nucleated RBC % 0.2 Sodium Potassium Chloride Carbon Dioxide Anion Gap BUN Creatinine Estim Creat Clear Calc Est GFR (MDRD) Af Amer Est GFR (MDRD) Non-Af BUN/Creatinine Ratio Glucose Calcium POC Glucose 155 H 176 H 09/01/20 09/01/20 04:50 06:31 WBC RBC Hgb Hct MCV MCH MCHC RDW Std Deviation RDW Coeff of Barbara Plt Count MPV Immature Gran % (Auto) Neut % (Auto) Lymph % (Auto) [place] % (Auto) Eos % (Auto) Baso % (Auto) Absolute Neuts (auto) Absolute Lymphs (auto) Nucleated RBC % Sodium 141 Potassium 3.8 Chloride 109 H Carbon Dioxide 26.0 Anion Gap 6 BUN 23 H Creatinine 1.11 Estim Creat Clear Calc 62.86 Est GFR (MDRD) Af Amer 86 Est GFR (MDRD) Non-Af 71 BUN/Creatinine Ratio 20.7 H Glucose 205 H Calcium 8.1 L POC Glucose 194 H Micro: Microbiology 08/28/20 11:55 Urine Catheter - Catheter Urine Culture - Final Culture exhibits no growth. 08/28/20 10:55 Blood Culture (Wb) - Left Wrist Blood Culture - Preliminary No growth in 48 hours. 08/28/20 12:00 Blood Culture (Wb) - Anticubital Left Blood Culture - Preliminary No growth in 48 hours. 08/28/20 11:55 Urine, Clean Catch Urine Culture - Final Culture exhibits no growth. 08/28/20 14:47 Mucosa - Nose Respiratory Panel (PCR) - Final 08/28/20 11:55 Urine Catheter - Catheter Streptococcus pneumoniae Antigen (M - Final 08/28/20 11:55 Urine Catheter - Catheter Legionella Antigen - Final Legionella Antigen 08/28/20 11:00 Mucosa - Nose SARS-CoV-2 Antigen (Rapid) - Final Physical Exam Const alert, oriented x3 and no apparent distress General Appearance: cooperative HEENT normocephalic and moist oral mucous membranes Eyes PERRL and EOMs intact bilaterally Neck supple and no JVD Resp normal respiratory effort, no retractions, no use of accessory muscles and clear to auscultation bilaterally Auscultation: Negative for crackles, rales, rhonchi or wheezes Cardio regular rate, regular rhythm, S1 normal heart sound, S2 normal heart sound and no murmurs GI soft to palpation, non-tender and non-distended; Negative for hepatosplenomegaly Extremity no clubbing, cyanosis or edema Skin no rashes or lesions noted Neuro no focal motor deficits and no sensory deficits noted Psych affect normal Appearance: appropriate Assessment & Plan Assessment/Plan (1) Severe sepsis: (2) Pneumonia: QUALIFIERS: Pneumonia type: aspiration pneumonia Aspiration pneumonia type: unspecified Laterality: right Lung location: lower lobe of lung Qualified Code(s): J69.0 - Pneumonitis due to inhalation of food and vomit (3) Acute kidney injury: (4) Elevated troponin: (5) Essential (primary) hypertension: (6) Type 2 diabetes mellitus: PLAN: Patient is a 65-year-old gentleman admitted with altered mental status 1. Septic shock ?Secondary to pneumonia with suspected MDR's as well as acute cystitis. Patient has been admitted to the intensive care unit being managed with aggressive IV fluid resuscitation, broad-spectrum antibiotic therapy with Zosyn and vancomycin after cultures have been obtained. Patient progressed being monitored with lactic acid level as well as periodic examination -08/29/2020; patient remains on broad-spectrum antibiotic therapy. Urine Legionella antigen came back positive. Patient seen in consultation by Dr. Jeff with intensive care. ?08/30/2020: Can discontinue Zosyn and vancomycin, urine cultures unremarkable. Given his positive Legionella, will place him back on azithromycin and transition him to Unasyn to cover for aspiration pneumonia. Speech therapy to evaluate today -08/31/2020: Continue with Unasyn and azithromycin to cover his Legionella and his aspiration. He did pass speech therapy evaluation, and can take p.o. -09/01/2020: Since he is taking p.o., will discontinue his IV fluids 2. Acute hypoxic respiratory failure ?Secondary to pneumonia with MDR antibiotic therapy as discussed above. Patient placed on supplemental oxygen titrated to keep saturation greater than 90 ?08/29/2020; urine Legionella antigen came back positive -08/30/2020: See #1 -09/01/2020: Continue to encourage incentive spirometer, he takes very shallow breaths because he says it hurts his back and I have expressed to him that if he continues to take shallow breaths his pneumonia can potentially get worse. He remains on 5 to 6 L nasal cannula 3. Acute kidney injury ?Secondary to ATN from severe sepsis on IV fluid with subsequent monitoring of electrolytes -08/29/2020 patient was seen in consultation by Dr. Herring with nephrology -08/30/2020: Renal function appears to be improving, appreciate nephrology's assistance -09/01/2020: Renal function is back to baseline 4. Diabetes mellitus type 2 ?Complicated by episodes of hypoglycemia patient be managed with D5 with every 4 glucose checks -09/01/2020: Can adjust his insulin schedule and discontinue his IV fluids since he is taking p.o. 5. Essential hypertension ?Patient blood pressure was low on admission antihypertensives on hold 6. Elevated troponin ?Secondary to non-STEMI type II from sepsis 7. Coronary artery disease -History of previous IN DVT: Heparin Charges/Coding Visit Charges Inpatient E&M: 80001 Subs Hosp L2
[2020-09-01 11:56] LABS: Bedside Glucose 272 mg/dL (70-110)
[2020-09-01 12:55] LABS: Bedside Glucose 220 mg/dL (70-110)
--- NOTE | 2020-09-01 15:45 | PCM.PN.REN ---
Subjective Subjective no new events Objective Data Objective Data Vital Signs: Vital Signs Temp Pulse Resp BP Pulse Ox 97.5 F L 62 26 H 134/67 H 94 09/01/20 14:00 09/01/20 15:13 09/01/20 15:00 09/01/20 15:00 09/01/20 15:00 Oxygen Flow Rate (L/min) 5 Oxygen Delivery Method Nasal Cannula Weight: 81.1 kg Body Mass Index (BMI) 27.1 Intake & Output: Intake and Output for Last 24 Hours 08/30/20 08/31/20 09/01/20 23:59 23:59 23:59 Intake Total 3110.25 / 3310.25 2127.25 / 2127.25 2661.50 / 2661.50 Output Total 2475 / 2875 1900 / 2250 1525 / 1525 Balance 635.25 / 435.25 227.25 / -122.75 1136.50 / 1136.50 Lab / Micro Data Result Diagrams: 09/01/20 04:50 09/01/20 04:50 Labs: Laboratory Results - last 24 hr 08/31/20 08/31/20 09/01/20 16:41 23:22 04:50 WBC 12.4 H RBC 3.69 L Hgb 10.4 L Hct 31.7 L MCV 85.9 MCH 28.2 MCHC 32.8 RDW Std Deviation 43.9 RDW Coeff of Barbara 13.9 Plt Count 323 MPV 11.3 Immature Gran % (Auto) 4.400 H Neut % (Auto) 83.1 H Lymph % (Auto) 6.1 L [place] % (Auto) 4.1 Eos % (Auto) 1.7 Baso % (Auto) 0.6 Absolute Neuts (auto) 10.3 H Absolute Lymphs (auto) 0.76 L Nucleated RBC % 0.2 Sodium Potassium Chloride Carbon Dioxide Anion Gap BUN Creatinine Estim Creat Clear Calc Est GFR (MDRD) Af Amer Est GFR (MDRD) Non-Af BUN/Creatinine Ratio Glucose Calcium POC Glucose 155 H 176 H 09/01/20 09/01/20 09/01/20 04:50 06:31 11:47 WBC RBC Hgb Hct MCV MCH MCHC RDW Std Deviation RDW Coeff of Barbara Plt Count MPV Immature Gran % (Auto) Neut % (Auto) Lymph % (Auto) [place] % (Auto) Eos % (Auto) Baso % (Auto) Absolute Neuts (auto) Absolute Lymphs (auto) Nucleated RBC % Sodium 141 Potassium 3.8 Chloride 109 H Carbon Dioxide 26.0 Anion Gap 6 BUN 23 H Creatinine 1.11 Estim Creat Clear Calc 62.86 Est GFR (MDRD) Af Amer 86 Est GFR (MDRD) Non-Af 71 BUN/Creatinine Ratio 20.7 H Glucose 205 H Calcium 8.1 L POC Glucose 194 H 272 H 09/01/20 12:51 WBC RBC Hgb Hct MCV MCH MCHC RDW Std Deviation RDW Coeff of Barbara Plt Count MPV Immature Gran % (Auto) Neut % (Auto) Lymph % (Auto) [place] % (Auto) Eos % (Auto) Baso % (Auto) Absolute Neuts (auto) Absolute Lymphs (auto) Nucleated RBC % Sodium Potassium Chloride Carbon Dioxide Anion Gap BUN Creatinine Estim Creat Clear Calc Est GFR (MDRD) Af Amer Est GFR (MDRD) Non-Af BUN/Creatinine Ratio Glucose Calcium POC Glucose 220 H Micro: Microbiology 09/01/20 09:40 Sputum, Expectorated/Coughed Gram Stain - Final 08/28/20 11:55 Urine Catheter - Catheter Urine Culture - Final Culture exhibits no growth. 08/28/20 10:55 Blood Culture (Wb) - Left Wrist Blood Culture - Preliminary No growth in 48 hours. 08/28/20 12:00 Blood Culture (Wb) - Anticubital Left Blood Culture - Preliminary No growth in 48 hours. 08/28/20 11:55 Urine, Clean Catch Urine Culture - Final Culture exhibits no growth. 08/28/20 14:47 Mucosa - Nose Respiratory Panel (PCR) - Final 08/28/20 11:55 Urine Catheter - Catheter Streptococcus pneumoniae Antigen (M - Final 08/28/20 11:55 Urine Catheter - Catheter Legionella Antigen - Final Legionella Antigen 08/28/20 11:00 Mucosa - Nose SARS-CoV-2 Antigen (Rapid) - Final Physical Exam Narrative Patient is awake alert oriented. Neck: No JVD. No lymphadenopathy. HEENT: AT NC, mucous membrane moist. Heart: S1/S2 regular. Chest: Clear to auscultation anteriorly. Abdomen: soft + BS, no distention, no pain on palpation. Ext: No edema Neuro: No focal deficit Assessment & Plan Assessment/Plan (1) Acute kidney injury: PLAN: Unknown baseline serum creatinine. Serum creatinine peaked at 3.69 mg/dL on 08/28/2020. There has been a gradual improvement of renal function since then with volume repletion. Serum creatinine is down . Suspect the patient has ischemic ATN. cr is close to normal (2) Essential (primary) hypertension: PLAN: BP is stable off of usual antihypertensives including lisinopril, Maxzide, and amlodipine. (3) Hypokalemia: PLAN: Potassium level has continued to remain stable. . (4) Severe sepsis: PLAN: Likely due to pneumonia. Antibiotics as per primary team. (5) Pneumonia: QUALIFIERS: Pneumonia type: aspiration pneumonia Aspiration pneumonia type: unspecified Laterality: right Lung location: lower lobe of lung Qualified Code(s): J69.0 - Pneumonitis due to inhalation of food and vomit PLAN: As above.
[2020-09-01 16:15] LABS: Bedside Glucose 140 mg/dL (70-110)
[2020-09-01 21:45] LABS: Bedside Glucose 197 mg/dL (70-110)
[2020-09-02] VITALS (25 sets, daily range): BP systolic 100–144; BP diastolic 62–87; PULSE 68–94; RESP 18–34; TEMP 36.1–36.9; O2SAT 91–97
[2020-09-02] MEDS: Acetaminophen 325 MG Tablet 650 MG PO ×5 (03:15→23:43)
[2020-09-02 04:23] LABS: Absolute Lymphocyte Count 0.86 X10^3/uL (0.83-4.51); Basophil# 0.03 X10^3/uL; Basophil% 0.3 % (0-1); Eosinophil# 0.37 X10^3/uL; Eosinophils% 3.6 % (0-5); Hematocrit 28.8 % (40-54); Hemoglobin 9.5 g/dL (13.0-16.5); Lymphocyte # 0.86 X10^3/ul (0.83-4.51); Lymphocyte % 8.4 % (19-41); Mean Corpuscular Hgb 28.7 pg (27.0-32.0); Mean Platelet Vol. 10.7 fl (6.2-12.0); Monocyte# 0.58 X10^3/uL; Monocyte% 5.7 % (0-10); NRBC Flagged by Analyzer 0.2 % (0-5); Neutrophil # 7.95 X10^3/uL (2.7-7.7); Neutrophil % 77.9 % (47-70); Platelet Count 364 K/mm3 (150-450); RBC Distribution Width CV 14.1 % (11.6-14.6); Red Blood Count 3.31 M/mm3 (4.6-6.2); White Blood Count 10.2 K/mm3 (4.4-11.0)
[2020-09-02 04:36] LABS: Anion Gap 5 (5-15); BUN 21 mg/dL (7-18); BUN/Creat Ratio 23.9 RATIO (10-20); Calcium,Total 7.7 mg/dL (8.5-10.1); Chloride 107 mmol/L (98-107); Creatinine, Serum 0.88 mg/dL (0.70-1.30); EST Glomerular Filtration Rate 93 mL/min (>60); Est Glom Filt Rate - Afr Amer 112 mL/min (>60); Estimated Creatinine Clearance 79.29 ml/min; Glucose 154 mg/dL (74-106); Potassium 3.4 mmol/L (3.5-5.1); Sodium Level 140 mmol/L (136-145)
[2020-09-02] MEDS: Heparin Injection (Vial) 5,000 UNIT/ML VIAL 5000 UNIT SC ×3 (05:18→21:02)
--- NOTE | 2020-09-02 06:25 | PN.CC_ITS ---
Assessment & Plan Assessment/Plan (1) Septic shock: PLAN: RECOMMENDATIONS: 1. Continue broad-spectrum antimicrobials to complete a 7 to 10-day course. 2. Recommend conservative use of fluids, given hemodynamic stability. 3. Follow speech recommendations for p.o. diet 4. Could benefit from gentle diuresis 5. Wean oxygen as tolerated and continue bronchodilator therapy 6. Encourage incentive spirometer use and mobilize patient as tolerated. 7. Okay to leave the intensive care unit from my perspective IMPRESSIONS: 1. Septic shock Suspect that this is likely multifactorial in etiology with Legionella pneumonia and underlying urinary tract source of infection contributing. The patient will be continued on broad antimicrobials, pending further infectious work-up. He has been adequately volume resuscitated at this time. Central line has been removed. No indication for need of pressors. Patient has been hem odynamically stable. Okay to leave the intensive care unit. 2. Acute hypoxemic respiratory failure Although the patient has a documented history of COPD, he has never been evaluated by a machine cloth measurer or completed pulmonary function studies. In addition, he does not utilize inhalers at his baseline. Echocardiogram was relatively unremarkable. Patient does have Legionella antigen and a dense right lower lobe infiltrate. Some concern for aspiration pneumonia, so would continue aspiration antibiotics. Speech is following. Stressed to the patient that incentive spirometer will be vital for pulmonary recruitment. Doubt patient would tolerate Acapella or vest therapy given concomitant back pain. Ambulation is likely the best approach. Patient could tolerate gentle diuresis in my opinion. 3. Acute kidney injury Resolved. Clinical concern for prerenal etiology versus ischemic ATN in the setting of #1. The patient has been volume resuscitated with improving creatinine noted. Nephrology is currently following. Continue to monitor urine output for now. No current indication for renal replacement therapy. Okay to discontinue Rodríguez from my perspective 4. Metabolic encephalopathy Improved. Likely metabolic in etiology and related to underlying infectious processes and underlying renal insufficiency. The patient is much more alert and appropriate this morning with supportive measures. CT head was negative. Continue measures as noted above. 5. Hypertension/history of coronary artery disease/diabetes mellitus/back pain Complicates care, management, recovery and prognosis. Okay to reinitiate home antihypertensives in a stepwise fashion from my perspective. Patient appears to have musculoskeletal lower back pain exacerbated by coughing and lack of mobility. Encourage incentive spirometer and out of bed as tolerated. This note was generated with [employer] dictation software. It may contain incorrect words, spelling, and punctuation that were not noted in checking the note before signing. Subjective Subjective Patient did well overnight. Patient continues to report significant back pain limiting his ability to compliant with pulmonary toileting. Patient does moshe nue to have a cough, but is reporting less production. Objective Data Objective Data Vital Signs: Vital Signs Temp Pulse Resp BP Pulse Ox 36.6 C 72 32 H 100/87 H 94 09/02/20 04:00 09/02/20 05:00 09/02/20 05:00 09/02/20 05:00 09/02/20 05:00 Oxygen Flow Rate (L/min) 5 Oxygen Delivery Method Nasal Cannula Weight: 82.4 kg Body Mass Index (BMI) 27.1 Intake & Output: Intake and Output for Last 24 Hours 08/31/20 09/01/20 09/02/20 23:59 23:59 23:59 Intake Total 2127.25 / 2127.25 3079.25 / 3354.25 596.5 / 596.5 Output Total 1900 / 2250 2125 / 2325 500 / 500 Balance 227.25 / -122.75 954.25 / 1029.25 96.5 / 96.5 Lab / Micro Data Result Diagrams: 09/02/20 04:15 09/02/20 04:15 Labs: Laboratory Results - last 24 hr 09/01/20 09/01/20 09/01/20 06:31 11:47 12:51 WBC RBC Hgb Hct MCV MCH MCHC RDW Std Deviation RDW Coeff of Barbara Plt Count MPV Immature Gran % (Auto) Neut % (Auto) Lymph % (Auto) [place] % (Auto) Eos % (Auto) Baso % (Auto) Absolute Neuts (auto) Absolute Lymphs (auto) Nucleated RBC % Sodium Potassium Chloride Carbon Dioxide Anion Gap BUN Creatinine Estim Creat Clear Calc Est GFR (MDRD) Af Amer Est GFR (MDRD) Non-Af BUN/Creatinine Ratio Glucose Calcium POC Glucose 194 H 272 H 220 H 09/01/20 09/01/20 09/02/20 16:05 21:35 04:15 WBC 10.2 RBC 3.31 L Hgb 9.5 L Hct 28.8 L MCV 87.0 MCH 28.7 MCHC 33.0 RDW Std Deviation 45.0 H RDW Coeff of Barbara 14.1 Plt Count 364 MPV 10.7 Immature Gran % (Auto) 4.100 H Neut % (Auto) 77.9 H Lymph % (Auto) 8.4 L Carroll % (Auto) 5.7 Eos % (Auto) 3.6 Baso % (Auto) 0.3 Absolute Neuts (auto) 8.0 H Absolute Lymphs (auto) 0.86 Nucleated RBC % 0.2 Sodium Potassium Chloride Carbon Dioxide Anion Gap BUN Creatinine Estim Creat Clear Calc Est GFR (MDRD) Af Amer Est GFR (MDRD) Non-Af BUN/Creatinine Ratio Glucose Calcium POC Glucose 140 H 197 H 09/02/20 04:15 WBC RBC Hgb Hct MCV MCH MCHC RDW Std Deviation RDW Coeff of Barbara Plt Count MPV Immature Gran % (Auto) Neut % (Auto) Lymph % (Auto) Carroll % (Auto) Eos % (Auto) Baso % (Auto) Absolute Neuts (auto) Absolute Lymphs (auto) Nucleated RBC % Sodium 140 Potassium 3.4 L Chloride 107 Carbon Dioxide 28.0 Anion Gap 5 BUN 21 H Creatinine 0.88 Estim Creat Clear Calc 79.29 Est GFR (MDRD) Af Amer 112 Est GFR (MDRD) Non-Af 93 BUN/Creatinine Ratio 23.9 H Glucose 154 H Calcium 7.7 L POC Glucose Micro: Microbiology 09/01/20 09:40 Sputum, Expectorated/Coughed Gram Stain - Final 08/28/20 11:55 Urine Catheter - Catheter Urine Culture - Final Culture exhibits no growth. 08/28/20 10:55 Blood Culture (Wb) - Left Wrist Blood Culture - Preliminary No growth in 48 hours. 08/28/20 12:00 Blood Culture (Wb) - Anticubital Left Blood Culture - Preliminary No growth in 48 hours. 08/28/20 11:55 Urine, Clean Catch Urine Culture - Final Culture exhibits no growth. 08/28/20 14:47 Mucosa - Nose Respiratory Panel (PCR) - Final 08/28/20 11:55 Urine Catheter - Catheter Streptococcus pneumoniae Antigen (M - Final 08/28/20 11:55 Urine Catheter - Catheter Legionella Antigen - Final Legionella Antigen 08/28/20 11:00 Mucosa - Nose SARS-CoV-2 Antigen (Rapid) - Final Physical Exam Const alert and no apparent distress Constitutional Narrative: Extremely hard of hearing. General Appearance: cooperative HEENT normocephalic and head/scalp atraumatic Eyes PERRL and EOMs intact bilaterally Neck supple General: trachea midline Resp Resp Narrative: Fair effort Effort and Inspection: Negative for tachypneic Auscultation: diminished lung sounds; Negative for rales, rhonchi or wheezes Cardio regular rate, regular rhythm, S1 normal heart sound and S2 normal heart sound Heart Sounds: Negative for gallop, murmur or rub GI normal to inspection, nondistended, normoactive bowel sounds Extremity no clubbing, cyanosis or edema Skin no rashes or lesions noted Neuro CN's II-XII intact bilaterally, moves all extremities and no focal motor deficits Psych Mood & Affect: flat affect Charges/Coding Visit Charges Inpatient E&M: 98446 Subs Hosp L3
[2020-09-02] MEDS: Ipratropium/Albuterol Sulfate 3 ML AMPUL.NEB INHALATION ×3 (07:00→20:29)
[2020-09-02 08:25] LABS: Bedside Glucose 136 mg/dL (70-110)
[2020-09-02] MEDS: Potassium Chloride Oral Tablet 20 MEQ 40 MEQ PO (08:41)
[2020-09-02] MEDS: amLODIPine 2.5 MG Tablet PO (10:02)
[2020-09-02] MEDS: Furosemide 20 MG Tablet PO (10:02)
[2020-09-02] MEDS: Menthol/Lanolin/Calamine/Znox 113 GM Tube 1 APPLIC TOPICAL ×2 (10:02→21:02)
[2020-09-02] MEDS: CHLORHEXIDINE GLUC 2% CLOTH 1 EACH TOWELETTE TOPICAL (10:02)
[2020-09-02 11:21] LABS: Bedside Glucose 253 mg/dL (70-110)
[2020-09-02] MEDS: Insulin Lispro 100 UNIT/ML INSULN.PEN SC ×3 (11:50→21:02)
--- NOTE | 2020-09-02 12:03 | PN.HOSP_ITS ---
Subjective Subjective Doing well, no issues overnight. Still short of breath on 5 to 6 L nasal cannula. Still has low volumes on the incentive spirometer. Objective Data Objective Data Vital Signs: Vital Signs Temp Pulse Resp BP Pulse Ox 97.4 F L 71 24 H 132/73 H 93 09/02/20 12:00 09/02/20 12:00 09/02/20 12:00 09/02/20 12:00 09/02/20 12:00 Oxygen Flow Rate (L/min) 3 Oxygen Delivery Method Nasal Cannula Weight: 181 lb 10.574 oz Body Mass Index (BMI) 27.1 Intake & Output: Intake and Output for Last 24 Hours 09/01/20 09/02/20 09/03/20 03:59 03:59 03:59 Intake Total 2927.25 / 3107.25 2388.75 / 2563.75 782 / 782 Output Total 1850 / 2400 1975 / 2075 650 / 650 Balance 1077.25 / 707.25 413.75 / 488.75 132 / 132 Lab / Micro Data Result Diagrams: 09/02/20 04:15 09/02/20 04:15 Labs: Laboratory Results - last 24 hr 09/01/20 09/01/20 09/01/20 12:51 16:05 21:35 WBC RBC Hgb Hct MCV MCH MCHC RDW Std Deviation RDW Coeff of Barbara Plt Count MPV Immature Gran % (Auto) Neut % (Auto) Lymph % (Auto) [place] % (Auto) Eos % (Auto) Baso % (Auto) Absolute Neuts (auto) Absolute Lymphs (auto) Nucleated RBC % Sodium Potassium Chloride Carbon Dioxide Anion Gap BUN Creatinine Estim Creat Clear Calc Est GFR (MDRD) Af Amer Est GFR (MDRD) Non-Af BUN/Creatinine Ratio Glucose Calcium POC Glucose 220 H 140 H 197 H 09/02/20 09/02/20 09/02/20 04:15 04:15 08:09 WBC 10.2 RBC 3.31 L Hgb 9.5 L Hct 28.8 L MCV 87.0 MCH 28.7 MCHC 33.0 RDW Std Deviation 45.0 H RDW Coeff of Barbara 14.1 Plt Count 364 MPV 10.7 Immature Gran % (Auto) 4.100 H Neut % (Auto) 77.9 H Lymph % (Auto) 8.4 L [place] % (Auto) 5.7 Eos % (Auto) 3.6 Baso % (Auto) 0.3 Absolute Neuts (auto) 8.0 H Absolute Lymphs (auto) 0.86 Nucleated RBC % 0.2 Sodium 140 Potassium 3.4 L Chloride 107 Carbon Dioxide 28.0 Anion Gap 5 BUN 21 H Creatinine 0.88 Estim Creat Clear Calc 79.29 Est GFR (MDRD) Af Amer 112 Est GFR (MDRD) Non-Af 93 BUN/Creatinine Ratio 23.9 H Glucose 154 H Calcium 7.7 L POC Glucose 136 H 09/02/20 11:19 WBC RBC Hgb Hct MCV MCH MCHC RDW Std Deviation RDW Coeff of Barbara Plt Count MPV Immature Gran % (Auto) Neut % (Auto) Lymph % (Auto) [place] % (Auto) Eos % (Auto) Baso % (Auto) Absolute Neuts (auto) Absolute Lymphs (auto) Nucleated RBC % Sodium Potassium Chloride Carbon Dioxide Anion Gap BUN Creatinine Estim Creat Clear Calc Est GFR (MDRD) Af Amer Est GFR (MDRD) Non-Af BUN/Creatinine Ratio Glucose Calcium POC Glucose 253 H Micro: Microbiology 08/28/20 10:55 Blood Culture (Wb) - Left Wrist Blood Culture - Final No growth in 5 days. 09/01/20 09:40 Sputum, Expectorated/Coughed Gram Stain - Final 09/01/20 09:40 Sputum, Expectorated/Coughed Respiratory Culture - Preliminary Presumptive C albicans 08/28/20 11:55 Urine Catheter - Catheter Urine Culture - Final Culture exhibits no growth. 08/28/20 12:00 Blood Culture (Wb) - Anticubital Left Blood Culture - Preliminary No growth in 48 hours. 08/28/20 11:55 Urine, Clean Catch Urine Culture - Final Culture exhibits no growth. 08/28/20 14:47 Mucosa - Nose Respiratory Panel (PCR) - Final 08/28/20 11:55 Urine Catheter - Catheter Streptococcus pneumoniae Antigen (M - Final 08/28/20 11:55 Urine Catheter - Catheter Legionella Antigen - Final Legionella Antigen 08/28/20 11:00 Mucosa - Nose SARS-CoV-2 Antigen (Rapid) - Final Physical Exam Const alert, oriented x3 and no apparent distress General Appearance: cooperative HEENT normocephalic and moist oral mucous membranes Eyes PERRL and EOMs intact bilaterally Neck supple and no JVD Resp normal respiratory effort, no retractions, no use of accessory muscles and clear to auscultation bilaterally Auscultation: diminished lung sounds; Negative for crackles, rales, rhonchi or wheezes Cardio regular rate, regular rhythm, S1 normal heart sound, S2 normal heart sound and no murmurs GI soft to palpation, non-tender and non-distended; Negative for hepatosplenomegaly Extremity no clubbing, cyanosis or edema Skin no rashes or lesions noted Neuro no focal motor deficits and no sensory deficits noted Psych affect normal Appearance: appropriate Assessment & Plan Assessment/Plan (1) Severe sepsis: (2) Pneumonia: QUALIFIERS: Pneumonia type: aspiration pneumonia Aspiration pneumonia type: unspecified Laterality: right Lung location: lower lobe of lung Qualified Code(s): J69.0 - Pneumonitis due to inhalation of food and vomit (3) Acute kidney injury: (4) Elevated troponin: (5) Essential (primary) hypertension: (6) Type 2 diabetes mellitus: PLAN: Patient is a 65-year-old gentleman admitted with altered mental status 1. Septic shock ?Secondary to pneumonia with suspected MDR's as well as acute cystitis. Patient has been admitted to the intensive care unit being managed with aggressive IV fluid resuscitation, broad-spectrum antibiotic therapy with Zosyn and vancomycin after cultures have been obtained. Patient progressed being monitored with lactic acid level as well as periodic examination -08/29/2020; patient remains on broad-spectrum antibiotic therapy. Urine Legionella antigen came back positive. Patient seen in consultation by Dr. Jeff with intensive care. ?08/30/2020: Can discontinue Zosyn and vancomycin, urine cultures unremarkable. Given his positive Legionella, will place him back on azithromycin and lyn sition him to Unasyn to cover for aspiration pneumonia. Speech therapy to evaluate today -08/31/2020: Continue with Unasyn and azithromycin to cover his Legionella and his aspiration. He did pass speech therapy evaluation, and can take p.o. -09/01/2020: Since he is taking p.o., will discontinue his IV fluids -09/02/2020: This continued respiratory issues will give him a dose of Lasix today 2. Acute hypoxic respiratory failure ?Secondary to pneumonia with MDR antibiotic therapy as discussed above. Patient placed on supplemental oxygen titrated to keep saturation greater than 90 ?08/29/2020; urine Legionella antigen came back positive -08/30/2020: See #1 -09/01/2020: Continue to encourage incentive spirometer, he takes very shallow breaths because he says it hurts his back and I have expressed to him that if he continues to take shallow breaths his pneumonia can potentially get worse. He r emains on 5 to 6 L nasal cannula -09/02/2020: Continue to encourage incentive spirometer, he is about 8 L positive therefore we will give him a single dose of Lasix today 3. Acute kidney injury ?Secondary to ATN from severe sepsis on IV fluid with subsequent monitoring of electrolytes -08/29/2020 patient was seen in consultation by Dr. Herring with nephrology -08/30/2020: Renal function appears to be improving, appreciate nephrology's assistance -09/01/2020: Renal function is back to baseline 4. Diabetes mellitus type 2 ?Complicated by episodes of hypoglycemia patient be managed with D5 with every 4 glucose checks -09/01/2020: Can adjust his insulin schedule and discontinue his IV fluids since he is taking p.o. 5. Essential hypertension ?Patient blood pressure was low on admission antihypertensives on hold 6. Elevated troponin ?Secondary to non-STEMI type II from sepsis 7. Coronary artery disease -History of previous [place] DVT: Heparin Charges/Coding Visit Charges Inpatient E&M: 61992 Subs Hosp L2
[2020-09-02 16:30] LABS: Bedside Glucose 254 mg/dL (70-110)
[2020-09-02 23:05] LABS: Bedside Glucose 152 mg/dL (70-110)
[2020-09-03] VITALS (14 sets, daily range): BP systolic 133–160; BP diastolic 68–80; PULSE 63–98; RESP 16–22; TEMP 35.7–36.9; O2SAT 90–94
[2020-09-03] MEDS: Acetaminophen 325 MG Tablet 650 MG PO ×2 (05:25→20:23)
[2020-09-03] MEDS: Heparin Injection (Vial) 5,000 UNIT/ML VIAL 5000 UNIT SC ×3 (05:25→22:47)
[2020-09-03 06:51] LABS: Bedside Glucose 143 mg/dL (70-110)
[2020-09-03 07:02] LABS: Anion Gap 8 (5-15); BUN 16 mg/dL (7-18); BUN/Creat Ratio 19.1 RATIO (10-20); Chloride 107 mmol/L (98-107); Creatinine, Serum 0.84 mg/dL (0.70-1.30); EST Glomerular Filtration Rate 98 mL/min (>60); Est Glom Filt Rate - Afr Amer 119 mL/min (>60); Estimated Creatinine Clearance 83.06 ml/min; Glucose 136 mg/dL (74-106); Potassium 3.3 mmol/L (3.5-5.1); Sodium Level 143 mmol/L (136-145)
[2020-09-03] MEDS: Ipratropium/Albuterol Sulfate 3 ML AMPUL.NEB INHALATION ×3 (07:21→19:14)
--- NOTE | 2020-09-03 07:52 | PCM.PN.INT ---
Assessment & Plan Assessment/Plan (1) Septic shock: PLAN: RECOMMENDATIONS: 1. Continue antimicrobials to complete a 7 to 10-day course. 2. Recommend conservative use of fluids, given hemodynamic stability. 3. Follow speech recommendations for p.o. diet 4. Continue gentle diuresis 5. Wean oxygen as tolerated and continue bronchodilator therapy 6. Encourage incentive spirometer use and mobilize patient as tolerated. IMPRESSIONS: 1. Septic shock Resolved. Suspect that this is likely multifactorial in etiology with Legionella pneumonia and underlying urinary tract source of infection contributing. The patient will be continued on appropriate antimicrobials. He has been adequately volume resuscitated at this time. Central line has been removed. No indication for need of pressors. Patient has been hemodynamically stable. 2. Acute hypoxemic respiratory failure Although the patient has a documented history of COPD, he has never been evaluated by a vegetable loader machine operator or completed pulmonary function studies. In addition, he does not utilize inhalers at his baseline. Echocardiogram was relatively unremarkable. Patient does have Legionella antigen and a dense right lower lobe infiltrate. Some concern for aspiration pneumonia, so would continue aspiration antibiotics. Speech is following. Stressed to the patient that incentive spirometer will be vital for pulmonary recruitment. Doubt patient would tolerate Acapella or vest therapy given concomitant back pain. Ambulation is likely the best approach. Agree with diuresis. 3. Acute kidney injury Resolved. Clinical concern for prerenal etiology versus ischemic ATN in the setting of #1. The patient has been volume resuscitated with improving creatinine noted. Nephrology is currently following. Continue to monitor urine output for now. No current indication for renal replacement therapy. Okay to discontinue Rodríguez from my perspective 4. Metabolic encephalopathy Improved. Likely metabolic in etiology and related to underlying infectious processes and underlying renal insufficiency. The patient is much more alert and appropriate this morning with supportive measures. CT head was negative. Continue measures as noted above. 5. Hypertension/history of coronary artery disease/diabetes mellitus/back pain Complicates care, management, recovery and prognosis. Okay to reinitiate home antihypertensives in a stepwise fashion from my perspective. Patient appears to have musculoskeletal lower back pain exacerbated by coughing and lack of mobility. Encourage incentive spirometer and out of bed as tolerated. This note was generated with [employer] dictation software. It may contain incorrect words, spelling, and punctuation that were not noted in checking the note before signing. Subjective Subjective Patient did well overnight. Patient was transferred from the intensive care unit and subjectively feels improved this morning. Patient continues to have significant back pain, but states that he was increasing activity yesterday. Still requiring significant amounts of oxygen overnight to maintain saturations. Objective Data Objective Data Vital Signs: Vital Signs Temp Pulse Resp BP Pulse Ox 35.7 C L 77 18 134/70 H 94 09/03/20 02:40 09/03/20 03:06 09/03/20 02:40 09/03/20 02:40 09/03/20 02:40 Oxygen Flow Rate (L/min) 5 Oxygen Delivery Method Nasal Cannula Weight: 82 kg Body Mass Index (BMI) 27.1 Intake & Output: Intake and Output for Last 24 Hours 09/01/20 09/02/20 09/03/20 23:59 23:59 23:59 Intake Total 3079.25 / 3354.25 1795.5 / 1795.5 232 / 232 Output Total 2125 / 2325 1400 / 1400 525 / 525 Balance 954.25 / 1029.25 395.5 / 395.5 -293 / -293 Lab / Micro Data Result Diagrams: 09/02/20 04:15 09/03/20 06:12 Labs: Laboratory Results - last 24 hr 09/02/20 09/02/20 09/02/20 08:09 11:19 16:19 Sodium Potassium Chloride Carbon Dioxide Anion Gap BUN Creatinine Estim Creat Clear Calc Est GFR (MDRD) Af Amer Est GFR (MDRD) Non-Af BUN/Creatinine Ratio Glucose Calcium POC Glucose 136 H 253 H 254 H 09/02/20 09/03/20 09/03/20 21:00 06:12 06:39 Sodium 143 Potassium 3.3 L Chloride 107 Carbon Dioxide 28.0 Anion Gap 8 BUN 16 Creatinine 0.84 Estim Creat Clear Calc 83.06 Est GFR (MDRD) Af Amer 119 Est GFR (MDRD) Non-Af 98 BUN/Creatinine Ratio 19.1 Glucose 136 H Calcium 8.0 L POC Glucose 152 H 143 H Micro: Microbiology 08/28/20 12:00 Blood Culture (Wb) - Anticubital Left Blood Culture - Final No growth in 5 days. 08/28/20 10:55 Blood Culture (Wb) - Left Wrist Blood Culture - Final No growth in 5 days. 09/01/20 09:40 Sputum, Expectorated/Coughed Gram Stain - Final 09/01/20 09:40 Sputum, Expectorated/Coughed Respiratory Culture - Preliminary Presumptive C albicans 08/28/20 11:55 Urine Catheter - Catheter Urine Culture - Final Culture exhibits no growth. 08/28/20 11:55 Urine, Clean Catch Urine Culture - Final Culture exhibits no growth. 08/28/20 14:47 Mucosa - Nose Respiratory Panel (PCR) - Final 08/28/20 11:55 Urine Catheter - Catheter Streptococcus pneumoniae Antigen (M - Final 08/28/20 11:55 Urine Catheter - Catheter Legionella Antigen - Final Legionella Antigen 08/28/20 11:00 Mucosa - Nose SARS-CoV-2 Antigen (Rapid) - Final Physical Exam Const alert and no apparent distress Constitutional Narrative: Extremely hard of hearing. General Appearance: cooperative HEENT normocephalic and head/scalp atraumatic Eyes PERRL and EOMs intact bilaterally Neck supple General: trachea midline Resp normal respiratory effort Resp Narrative: Fair effort Effort and Inspection: Negative for tachypneic Auscultation: diminished lung sounds; Negative for rales, rhonchi or wheezes Cardio regular rate, regular rhythm, S1 normal heart sound and S2 normal heart sound Heart Sounds: Negative for gallop, murmur or rub GI normal to inspection, nondistended, normoactive bowel sounds Extremity no clubbing, cyanosis or edema Skin no rashes or lesions noted Neuro CN's II-XII intact bilaterally, moves all extremities and no focal motor deficits Psych Mood & Affect: flat affect Charges/Coding Visit Charges Inpatient E&M: 92502 Subs Hosp L2
[2020-09-03 08:09] LABS: Magnesium 1.7 mg/dL (1.6-2.6); Phosphorus 3.4 mg/dL (2.5-4.9)
[2020-09-03] MEDS: amLODIPine 2.5 MG Tablet PO (09:29)
[2020-09-03] MEDS: Furosemide 20 MG/2 ML VIAL IV (09:29)
[2020-09-03] MEDS: Potassium Chloride Oral Tablet 20 MEQ 40 MEQ PO (09:29)
[2020-09-03] MEDS: Menthol/Lanolin/Calamine/Znox 113 GM Tube 1 APPLIC TOPICAL ×2 (09:48→22:48)
--- NOTE | 2020-09-03 09:53 | PN.HOSP_ITS ---
Subjective Subjective Seems to be in better spirits today, he says that he is able to get more volume on his incentive spirometer. Still requiring 5 L nasal cannula and he still about 8.5 L positive. Objective Data Objective Data Vital Signs: Vital Signs Temp Pulse Resp BP Pulse Ox 98.4 F 81 18 133/68 H 92 09/03/20 08:40 09/03/20 08:40 09/03/20 08:40 09/03/20 08:40 09/03/20 08:40 Oxygen Flow Rate (L/min) 5 Oxygen Delivery Method Nasal Cannula Weight: 180 lb 12.465 oz Body Mass Index (BMI) 27.1 Intake & Output: Intake and Output for Last 24 Hours 09/02/20 09/03/20 09/04/20 03:59 03:59 03:59 Intake Total 2388.75 / 2563.75 1486 / 1486 232 / 232 Output Total 1974 / 2074 1550 / 1550 175 / 175 Balance 413.75 / 488.75 -64 / -64 57 / 57 Lab / Micro Data Result Diagrams: 09/02/20 04:15 09/03/20 06:12 Labs: Laboratory Results - last 24 hr 09/02/20 09/02/20 09/02/20 11:19 16:19 21:00 Sodium Potassium Chloride Carbon Dioxide Anion Gap BUN Creatinine Estim Creat Clear Calc Est GFR (MDRD) Af Amer Est GFR (MDRD) Non-Af BUN/Creatinine Ratio Glucose Calcium Phosphorus Magnesium POC Glucose 253 H 254 H 152 H 09/03/20 09/03/20 09/03/20 06:12 06:12 06:39 Sodium 143 Potassium 3.3 L Chloride 107 Carbon Dioxide 28.0 Anion Gap 8 BUN 16 Creatinine 0.84 Estim Creat Clear Calc 83.06 Est GFR (MDRD) Af Amer 119 Est GFR (MDRD) Non-Af 98 BUN/Creatinine Ratio 19.1 Glucose 136 H Calcium 8.0 L Phosphorus 3.4 Magnesium 1.7 POC Glucose 143 H Micro: Microbiology 09/01/20 09:40 Sputum, Expectorated/Coughed Gram Stain - Final 09/01/20 09:40 Sputum, Expectorated/Coughed Respiratory Culture - Final Presumptive C albicans 08/28/20 12:00 Blood Culture (Wb) - Anticubital Left Blood Culture - Final No growth in 5 days. 08/28/20 10:55 Blood Culture (Wb) - Left Wrist Blood Culture - Final No growth in 5 days. 08/28/20 11:55 Urine Catheter - Catheter Urine Culture - Final Culture exhibits no growth. 08/28/20 11:55 Urine, Clean Catch Urine Culture - Final Culture exhibits no growth. 08/28/20 14:47 Mucosa - Nose Respiratory Panel (PCR) - Final 08/28/20 11:55 Urine Catheter - Catheter Streptococcus pneumoniae Antigen (M - Final 08/28/20 11:55 Urine Catheter - Catheter Legionella Antigen - Final Legionella Antigen 08/28/20 11:00 Mucosa - Nose SARS-CoV-2 Antigen (Rapid) - Final Physical Exam Const alert, oriented x3 and no apparent distress General Appearance: cooperative HEENT normocephalic and moist oral mucous membranes Eyes PERRL and EOMs intact bilaterally Neck supple and no JVD Resp normal respiratory effort, no retractions, no use of accessory muscles and clear to auscultation bilaterally Auscultation: diminished lung sounds; Negative for crackles, rales, rhonchi or wheezes Cardio regular rate, regular rhythm, S1 normal heart sound, S2 normal heart sound and no murmurs GI soft to palpation, non-tender and non-distended; Negative for hepatosplenomegaly Extremity no clubbing, cyanosis or edema Skin no rashes or lesions noted Neuro no focal motor deficits and no sensory deficits noted Psych affect normal Appearance: appropriate Assessment & Plan Assessment/Plan (1) Severe sepsis: (2) Pneumonia: QUALIFIERS: Aspiration pneumonia type: unspecified Laterality: right Lung location: lower lobe of lung Pneumonia type: aspiration pneumonia Qualified Code(s): J69.0 - Pneumonitis due to inhalation of food and vomit (3) Acute kidney injury: (4) Elevated troponin: (5) Essential (primary) hypertension: (6) Type 2 diabetes mellitus: PLAN: Patient is a 65-year-old gentleman admitted with altered mental status 1. Septic shock ?Secondary to pneumonia with suspected MDR's as well as acute cystitis. Patient has been admitted to the intensive care unit being managed with aggressive IV fluid resuscitation, broad-spectrum antibiotic therapy with Zosyn and vancomycin after cultures have been obtained. Patient progressed being monitored with lactic acid level as well as periodic examination -08/29/2020; patient remains on broad-spectrum antibiotic therapy. Urine Legionella antigen came back positive. Patient seen in consultation by Dr. Jeff with intensive care. ?08/30/2020: Can discontinue Zosyn and vancomycin, urine cultures unremarkable. Given his positive Legionella, will place him back on azithromycin and transition him to Unasyn to cover for aspiration pneumonia. Speech therapy to evaluate today -08/31/2020: Continue with Unasyn and azithromycin to cover his Legionella and his aspiration. He did pass speech therapy evaluation, and can take p.o. -09/01/2020: Since he is taking p.o., will discontinue his IV fluids -09/02/2020: This continued respiratory issues will give him a dose of Lasix today -09/03/2020: We will give him a dose of IV Lasix today to try to help diurese and reevaluate in the morning. We will monitor his creatinine. Based upon the amou nt of Zosyn and Unasyn he has obtained, will complete 7 days on 09/05/2020, which we will discontinue at that time and he will complete 10 total days of azithromycin. 2. Acute hypoxic respiratory failure ?Secondary to pneumonia with MDR antibiotic therapy as discussed above. Patient placed on supplemental oxygen titrated to keep saturation greater than 90 ?08/29/2020; urine Legionella antigen came back positive -08/30/2020: See #1 -09/01/2020: Continue to encourage incentive spirometer, he takes very shallow breaths because he says it hurts his back and I have expressed to him that if he continues to take shallow breaths his pneumonia can potentially get worse. He remains on 5 to 6 L nasal cannula -09/02/2020: Continue to encourage incentive spirometer, he is about 8 L positive therefore we will give him a single dose of Lasix today 3. Acute kidney injury ?Secondary to ATN from severe sepsis on IV fluid with subsequent monitoring of electrolytes -08/29/2020 patient was seen in consultation by Dr. Herring with nephrology -08/30/2020: Renal function appears to be improving, appreciate nephrology's assistance -09/01/2020: Renal function is back to baseline 4. Diabetes mellitus type 2 ?Complicated by episodes of hypoglycemia patient be managed with D5 with every 4 glucose checks -09/01/2020: Can adjust his insulin schedule and discontinue his IV fluids since he is taking p.o. 5. Essential hypertension ?Patient blood pressure was low on admission antihypertensives on hold 6. Elevated troponin ?Secondary to non-STEMI type II from sepsis 7. Coronary artery disease -History of previous [place] DVT: Heparin Charges/Coding Visit Charges Inpatient E&M: 04313 Subs Hosp L2
--- NOTE | 2020-09-03 13:21 | CM.ED ---
TRISTA Note: SW met with patient in his room to follow up regarding discharge planning. Patient is adament that he is not going to assisted facility (SNF) at discharge. He said that his brother is in fairly good health.. he has diabetes and can be with patient 02/10. Patient said that his brother stays with me. Patient adamantly voices desire to go home. SW to follow as needed. Plan: To be determined. Home Sarina RASHID
[2020-09-03] MEDS: Insulin Lispro 100 UNIT/ML INSULN.PEN SC ×3 (13:26→22:52)
[2020-09-03 13:35] LABS: Bedside Glucose 165 mg/dL (70-110)
--- NOTE | 2020-09-03 15:32 | CASEMGMT ---
JENA WEN NOTE: Per Dr Hdz, pt may be medically ready to discharge this weekend and may qualify for Home O2 @ discharge. Pt made aware of same. Pt is self pay/does not have insurance. Pt made aware [facility] has Reduced payment application and is agreeable to [facility]. RN BEHZAD assisted pt w/completing form and faxed it to [employer]. Per Maria G @ [facility], pt's financial responsibility for Home O2 for 30 day supply is $101.22, which would include 8 small tanks and conserving device and concentrator. Maria G also states payment for Oxygen would be due at time of delivery. Pt made aware. He states he is unable to afford this. RN BEHZAD inquired if pt's son would be able to help w/paying for O2. Pt states he is not sure and that his son would be in later today to visit. Asked pt if this RN BEHZAD could call his son but he states no d/t son is @ work. Nursing to f/u with son to inquire if he would be able to pay for the Home O2. Green sheet left on chart for Home O2 set up instructions, if pt qualifies for O2. Kota BSN RN CM
[2020-09-03 16:20] LABS: Bedside Glucose 153 mg/dL (70-110)
[2020-09-03 23:35] LABS: Bedside Glucose 196 mg/dL (70-110)
[2020-09-04] VITALS (12 sets, daily range): BP systolic 134–146; BP diastolic 66–88; PULSE 65–93; RESP 18–32; TEMP 36.1–36.8; O2SAT 91–96
[2020-09-04] MEDS: Heparin Injection (Vial) 5,000 UNIT/ML VIAL 5000 UNIT SC ×3 (05:39→21:33)
[2020-09-04 06:57] LABS: Absolute Lymphocyte Count 1.27 X10^3/uL (0.83-4.51); Absolute Neutrophil Count 8.1 X10^3/uL (2.0-7.7); Basophil# 0.07 X10^3/uL; Basophil% 0.6 % (0-1); Eosinophil# 0.37 X10^3/uL; Eosinophils% 3.4 % (0-5); Hematocrit 29.7 % (40-54); Hemoglobin 9.6 g/dL (13.0-16.5); Lymphocyte # 1.27 X10^3/ul (0.83-4.51); Lymphocyte % 11.8 % (19-41); Mean Corp Hgb Conc 32.3 g/dL (32-36); Mean Corpuscular Hgb 28.1 pg (27.0-32.0); Mean Corpuscular Volume 86.8 fL (80-94); Mean Platelet Vol. 10.3 fl (6.2-12.0); Monocyte# 0.51 X10^3/uL; Monocyte% 4.7 % (0-10); NRBC Flagged by Analyzer 0 % (0-5); Neutrophil # 8.09 X10^3/uL (2.7-7.7); Neutrophil % 75.1 % (47-70); Platelet Count 498 K/mm3 (150-450); RBC Distribution Width CV 14.2 % (11.6-14.6); RBC Distribution Width SD 45.1 fl (35.1-43.9); Red Blood Count 3.42 M/mm3 (4.6-6.2); White Blood Count 10.8 K/mm3 (4.4-11.0)
[2020-09-04] MEDS: Ipratropium/Albuterol Sulfate 3 ML AMPUL.NEB INHALATION ×3 (07:03→20:33)
[2020-09-04 07:10] LABS: Bedside Glucose 136 mg/dL (70-110)
[2020-09-04 07:27] LABS: Anion Gap 7 (5-15); BUN 13 mg/dL (7-18); BUN/Creat Ratio 16.3 RATIO (10-20); Calcium,Total 7.9 mg/dL (8.5-10.1); Chloride 106 mmol/L (98-107); EST Glomerular Filtration Rate 104 mL/min (>60); Est Glom Filt Rate - Afr Amer 126 mL/min (>60); Estimated Creatinine Clearance 87.22 ml/min; Glucose 137 mg/dL (74-106); Potassium 3.2 mmol/L (3.5-5.1); Sodium Level 142 mmol/L (136-145)
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
[2020-09-04] MEDS: Menthol/Lanolin/Calamine/Znox 113 GM Tube 1 APPLIC TOPICAL ×2 (08:48→21:33)
[2020-09-04] MEDS: amLODIPine 2.5 MG Tablet PO (08:49)
[2020-09-04] MEDS: Furosemide 40 MG/4 ML Vial IV (10:17)
--- NOTE | 2020-09-04 11:25 | PN.HOSP_ITS ---
Subjective Subjective She is to be in better spirits, no issues overnight. Feeling better and says that he is breathing little bit easier. Objective Data Objective Data Vital Signs: Vital Signs Temp Pulse Resp BP Pulse Ox 97.0 F L 69 18 134/66 H 96 09/04/20 08:46 09/04/20 08:46 09/04/20 08:46 09/04/20 08:46 09/04/20 08:46 Oxygen Flow Rate (L/min) 5 Oxygen Delivery Method Nasal Cannula Weight: 180 lb Body Mass Index (BMI) 27.1 Intake & Output: Intake and Output for Last 24 Hours 09/03/20 09/04/20 09/05/20 03:59 03:59 03:59 Intake Total 1486 / 1486 711 / 711 567 / 567 Output Total 1550 / 1550 1875 / 1875 700 / 700 Balance -64 / -64 -1164 / -1164 -133 / -133 Lab / Micro Data Result Diagrams: 09/04/20 06:30 09/04/20 06:30 Labs: Laboratory Results - last 24 hr 09/03/20 09/03/20 09/03/20 13:25 16:00 22:51 WBC RBC Hgb Hct MCV MCH MCHC RDW Std Deviation RDW Coeff of Barbara Plt Count MPV Immature Gran % (Auto) Neut % (Auto) Lymph % (Auto) [place] % (Auto) Eos % (Auto) Baso % (Auto) Absolute Neuts (auto) Absolute Lymphs (auto) Nucleated RBC % Sodium Potassium Chloride Carbon Dioxide Anion Gap BUN Creatinine Estim Creat Clear Calc Est GFR (MDRD) Af Amer Est GFR (MDRD) Non-Af BUN/Creatinine Ratio Glucose Calcium POC Glucose 165 H 153 H 196 H 09/04/20 09/04/20 09/04/20 06:30 06:30 06:55 WBC 10.8 RBC 3.42 L Hgb 9.6 L Hct 29.7 L MCV 86.8 MCH 28.1 MCHC 32.3 RDW Std Deviation 45.1 H RDW Coeff of Barbara 14.2 Plt Count 498 H MPV 10.3 Immature Gran % (Auto) 4.400 H Neut % (Auto) 75.1 H Lymph % (Auto) 11.8 L [place] % (Auto) 4.7 Eos % (Auto) 3.4 Baso % (Auto) 0.6 Absolute Neuts (auto) 8.1 H Absolute Lymphs (auto) 1.27 Nucleated RBC % 0 Sodium 142 Potassium 3.2 L Chloride 106 Carbon Dioxide 29.0 Anion Gap 7 BUN 13 Creatinine 0.80 Estim Creat Clear Calc 87.22 Est GFR (MDRD) Af Amer 126 Est GFR (MDRD) Non-Af 104 BUN/Creatinine Ratio 16.3 Glucose 137 H Calcium 7.9 L POC Glucose 136 H Micro: Microbiology 09/01/20 09:40 Sputum, Expectorated/Coughed Gram Stain - Final 09/01/20 09:40 Sputum, Expectorated/Coughed Respiratory Culture - Final Presumptive C albicans 08/28/20 12:00 Blood Culture (Wb) - Anticubital Left Blood Culture - Final No growth in 5 days. 08/28/20 10:55 Blood Culture (Wb) - Left Wrist Blood Culture - Final No growth in 5 days. 08/28/20 11:55 Urine Catheter - Catheter Urine Culture - Final Culture exhibits no growth. 08/28/20 11:55 Urine, Clean Catch Urine Culture - Final Culture exhibits no growth. 08/28/20 14:47 Mucosa - Nose Respiratory Panel (PCR) - Final 08/28/20 11:55 Urine Catheter - Catheter Streptococcus pneumoniae Antigen (M - Final 08/28/20 11:55 Urine Catheter - Catheter Legionella Antigen - Final Legionella Antigen 08/28/20 11:00 Mucosa - Nose SARS-CoV-2 Antigen (Rapid) - Final Physical Exam Const alert, oriented x3 and no apparent distress General Appearance: cooperative HEENT normocephalic and moist oral mucous membranes Eyes PERRL and EOMs intact bilaterally Neck supple and no JVD Resp normal respiratory effort, no retractions, no use of accessory muscles and clear to auscultation bilaterally Auscultation: diminished lung sounds; Negative for crackles, rales, rhonchi or wheezes Cardio regular rate, regular rhythm, S1 normal heart sound, S2 normal heart sound and no murmurs GI soft to palpation, non-tender and non-distended; Negative for hepatosplenomegaly Extremity no clubbing, cyanosis or edema Skin no rashes or lesions noted Neuro no focal motor deficits and no sensory deficits noted Psych affect normal Appearance: appropriate Assessment & Plan Assessment/Plan (1) Severe sepsis: (2) Pneumonia: QUALIFIERS: Pneumonia type: aspiration pneumonia Aspiration pne umonia type: unspecified Laterality: right Lung location: lower lobe of lung Qualified Code(s): J69.0 - Pneumonitis due to inhalation of food and vomit (3) Acute kidney injury: (4) Elevated troponin: (5) Essential (primary) hypertension: (6) Type 2 diabetes mellitus: PLAN: Patient is a 65-year-old gentleman admitted with altered mental status 1. Septic shock ?Secondary to pneumonia with suspected MDR's as well as acute cystitis. Patient has been admitted to the intensive care unit being managed with aggressive IV fluid resuscitation, broad-spectrum antibiotic therapy with Zosyn and vancomycin after cultures have been obtained. Patient progressed being monitored with lactic acid level as well as periodic examination -08/29/2020; patient remains on broad-spectrum antibiotic therapy. Urine Legionella antigen came back positive. Patient seen in consultation by Dr. Jeff with intensive care. ?08/30/2020: Can discontinue Zosyn and vancomycin, urine cultures unremarkable. Given his positive Legionella, will place him back on azithromycin and transition him to Unasyn to cover for aspiration pneumonia. Speech therapy to evaluate today -08/31/2020: Continue with Unasyn and azithromycin to cover his Legionella and his aspiration. He did pass speech therapy evaluation, and can take p.o. -09/01/2020: Since he is taking p.o., will discontinue his IV fluids -09/02/2020: This continued respiratory issues will give him a dose of Lasix today -09/03/2020: We will give him a dose of IV Lasix today to try to help diurese and reevaluate in the morning. We will monitor his creatinine. Based upon the amount of Zosyn and Unasyn he has obtained, will complete 7 days on 09/05/2020, which we will discontinue at that time and he will complete 10 total days of azithromycin. 2. Acute hypoxic respiratory failure ?Secondary to pneumonia with MDR antibiotic therapy as discussed above. Patient placed on supplemental oxygen titrated to keep saturation greater than 90 ?08/29/2020; urine Legionella antigen came back positive -08/30/2020: See #1 -09/01/2020: Continue to encourage incentive spirometer, he takes very shallow breaths because he says it hurts his back and I have expressed to him that if he continues to take shallow breaths his pneumonia can potentially get worse. He remains on 5 to 6 L nasal cannula -09/02/2020: Continue to encourage incentive spirometer, he is about 8 L positive therefore we will give him a single dose of Lasix today -09/04/2020: He is around 6 L positive therefore we will continue with Lasix, renal function can handle it 3. Acute kidney injury ?Secondary to ATN from severe sepsis on IV fluid with subsequent monitoring of electrolytes -08/29/2020 patient was seen in consultation by Dr. Herring with nephrology -08/30/2020: Renal function appears to be improving, appreciate nephrology's assistance -09/01/2020: Renal function is back to baseline -09/04/2020: Renal function remains at baseline 4. Diabetes mellitus type 2 ?Complicated by episodes of hypoglycemia patient be managed with D5 with every 4 glucose checks -09/01/2020: Can adjust his insulin schedule and discontinue his IV fluids since he is taking p.o. 5. Essential hypertension ?Patient blood pressure was low on admission antihypertensives on hold 6. Elevated troponin ?Secondary to non-STEMI type II from sepsis 7. Coronary artery disease -History of previous [place] DVT: Heparin Charges/Coding Visit Charges Inpatient E&M: 15764 Subs Hosp L2
[2020-09-04] MEDS: Insulin Lispro 100 UNIT/ML INSULN.PEN SC ×2 (12:25→21:55)
[2020-09-04] MEDS: Potassium Chloride Oral Tablet 20 MEQ 60 MEQ PO (12:29)
[2020-09-04 12:35] LABS: Bedside Glucose 156 mg/dL (70-110)
[2020-09-04] MEDS: Acetaminophen 325 MG Tablet 650 MG PO (15:12)
[2020-09-04] MEDS: Lidocaine 5% Patch 1 PATCH TOPICAL (16:18)
[2020-09-04 17:10] LABS: Bedside Glucose 125 mg/dL (70-110)
[2020-09-04 21:51] LABS: Bedside Glucose 174 mg/dL (70-110)
[2020-09-05] VITALS (14 sets, daily range): BP systolic 113–154; BP diastolic 50–87; PULSE 72–98; RESP 18–26; TEMP 36.2–36.9; O2SAT 91–96
[2020-09-05] MEDS: Heparin Injection (Vial) 5,000 UNIT/ML VIAL 5000 UNIT SC ×3 (05:06→21:29)
[2020-09-05 06:21] LABS: Anion Gap 6 (5-15); BUN 14 mg/dL (7-18); BUN/Creat Ratio 16.2 RATIO (10-20); Calcium,Total 8.2 mg/dL (8.5-10.1); Chloride 105 mmol/L (98-107); Creatinine, Serum 0.86 mg/dL (0.70-1.30); EST Glomerular Filtration Rate 95 mL/min (>60); Est Glom Filt Rate - Afr Amer 115 mL/min (>60); Estimated Creatinine Clearance 81.13 ml/min; Glucose 149 mg/dL (74-106); Potassium 3.7 mmol/L (3.5-5.1); Sodium Level 142 mmol/L (136-145)
[2020-09-05] MEDS: Ipratropium/Albuterol Sulfate 3 ML AMPUL.NEB INHALATION ×2 (07:20→20:36)
--- NOTE | 2020-09-05 08:20 | PCM.PN.INT ---
Assessment & Plan Assessment/Plan (1) Septic shock: PLAN: RECOMMENDATIONS: 1. Continue antimicrobials to complete a 7 to 10-day course. 2. Continue lidocaine patch 3. Follow speech recommendations for p.o. diet 4. Continue gentle diuresis with fluid restriction 5. Wean oxygen as tolerated and continue bronchodilator therapy 6. Encourage incentive spirometer use and mobilize patient as tolerated. IMPRESSIONS: 1. Septic shock Resolved. Suspect that this is likely multifactorial in etiology with Legionella pneumonia and underlying urinary tract source of infection contributing. The patient will be continued on appropriate antimicrobials. He has been adequately volume resuscitated at this time. Central line has been removed. No indication for need of pressors. Patient has been hemodynamically stable. 2. Acute hypoxemic respiratory failure Although the patient has a documented history of COPD, he has never been evaluated by a inpatient care manager rn or completed pulmonary function studies. In addition, he does not utilize inhalers at his baseline. Echocardiogram was relatively unremarkable. Patient does have Legionella antigen and a dense right lower lobe infiltrate. Some concern for aspiration pneumonia, so would continue aspiration antibiotics. Speech is following. Stressed to the patient that incentive spirometer will be vital for pulmonary recruitment. Could consider pulmonary toileting techniques with improved back pain. Ambulation is likely the best approach. Agree with diuresis and control of back pain to facilitate pulmonary toileting. Patient may have an element of overload given that he is still +5 L for the hospitalization. Patient is on diuretics with volume restriction. This is leading to slow improvement. 3. Acute kidney injury Resolved. Clinical concern for prerenal etiology versus ischemic ATN in the setting of #1. The patient has been volume resuscitated with improving creatinine noted. Nephrology is currently following. Continue to monitor urine output for now. No current indication for renal replacement therapy. Okay to discontinue Rodríguez from my perspective 4. Metabolic encephalopathy Improved. Likely metabolic in etiology and related to underlying infectious processes and underlying renal insufficiency. The patient is much more alert and appropriate this morning with supportive measures. CT head was negative. Continue measures as noted above. 5. Hypertension/history of coronary artery disease/diabetes mellitus/back pain Complicates care, management, recovery and prognosis. Blood pressure is marginally controlled and may be slightly elevated secondary to reported back pain. Patient appears to have musculoskeletal lower back pain exacerbated by coughing and lack of mobility. Encourage incentive spirometer and out of bed as tolerated. This note was generated with Dragon dictation software. It may contain incorrect words, spelling, and punctuation that were not noted in checking the note before signing. Subjective Subjective Patient did okay overnight. Patient did have a lidocaine patch and states this is helping his back pain. Patient continues to have limited mobility, but reportedly has asked to be out of bed, which is an improvement. No nausea or vomiting has been reported. Objective Data Objective Data Vital Signs: Vital Signs Temp Pulse Resp BP Pulse Ox 36.9 C 81 26 H 154/87 H 91 09/05/20 03:00 09/05/20 07:20 09/05/20 07:20 09/05/20 03:00 09/05/20 07:20 Oxygen Flow Rate (L/min) 4.5 Oxygen Delivery Method Nasal Cannula Weight: 81.25 kg Body Mass Index (BMI) 27.1 Intake & Output: Intake and Output for Last 24 Hours 09/03/20 09/04/20 09/05/20 23:59 23:59 23:59 Intake Total 711 / 711 1151 / 1211 272 / 272 Output Total 2025 / 2225 3250 / 3500 700 / 700 Balance -1314 / -1514 -2099 / -2289 -428 / -428 Lab / Micro Data Result Diagrams: 09/04/20 06:30 09/05/20 05:17 Labs: Laboratory Results - last 24 hr 09/04/20 09/04/20 09/04/20 12:23 16:26 21:37 Sodium Potassium Chloride Carbon Dioxide Anion Gap BUN Creatinine Estim Creat Clear Calc Est GFR (MDRD) Af Amer Est GFR (MDRD) Non-Af BUN/Creatinine Ratio Glucose Calcium POC Glucose 156 H 125 H 174 H 09/05/20 05:17 Sodium 142 Potassium 3.7 Chloride 105 Carbon Dioxide 31.0 Anion Gap 6 BUN 14 Creatinine 0.86 Estim Creat Clear Calc 81.13 Est GFR (MDRD) Af Amer 115 Est GFR (MDRD) Non-Af 95 BUN/Creatinine Ratio 16.2 Glucose 149 H Calcium 8.2 L POC Glucose Micro: Microbiology 09/01/20 09:40 Sputum, Expectorated/Coughed Gram Stain - Final 09/01/20 09:40 Sputum, Expectorated/Coughed Respiratory Culture - Final Presumptive C albicans 08/28/20 12:00 Blood Culture (Wb) - Anticubital Left Blood Culture - Final No growth in 5 days. 08/28/20 10:55 Blood Culture (Wb) - Left Wrist Blood Culture - Final No growth in 5 days. 08/28/20 11:55 Urine Catheter - Catheter Urine Culture - Final Culture exhibits no growth. 08/28/20 11:55 Urine, Clean Catch Urine Culture - Final Culture exhibits no growth. 08/28/20 14:47 Mucosa - Nose Respiratory Panel (PCR) - Final 08/28/20 11:55 Urine Catheter - Catheter Streptococcus pneumoniae Antigen (M - Final 08/28/20 11:55 Urine Catheter - Catheter Legionella Antigen - Final Legionella Antigen 08/28/20 11:00 Mucosa - Nose SARS-CoV-2 Antigen (Rapid) - Final Physical Exam Const alert and no apparent distress Constitutional Narrative: Extremely hard of hearing. General Appearance: cooperative HEENT normocephalic and head/scalp atraumatic Eyes PERRL and EOMs intact bilaterally Neck supple General: trachea midline Resp normal respiratory effort Effort and Inspection: Negative for tachypneic Auscultation: diminished lung sounds; Negative for rales, rhonchi or wheezes Cardio regular rate, regular rhythm, S1 normal heart sound and S2 normal heart sound Heart Sounds: Negative for gallop, murmur or rub GI normal to inspection, nondistended, normoactive bowel sounds Extremity no clubbing, cyanosis or edema Skin no rashes or lesions noted Neuro CN's II-XII intact bilaterally, moves all extremities and no focal motor deficits Psych Mood & Affect: flat affect Charges/Coding Visit Charges Inpatient E&M: 01723 Subs Hosp L2
[2020-09-05] MEDS: Lidocaine 5% Patch 1 PATCH TOPICAL (09:23)
[2020-09-05] MEDS: Furosemide 40 MG/4 ML Vial IV (09:23)
[2020-09-05] MEDS: amLODIPine 2.5 MG Tablet PO (09:24)
--- NOTE | 2020-09-05 10:31 | PCM.PN.HOSP ---
Subjective Subjective Doing well, no issues overnight. Lidocaine patch appears to be helping somewhat but states that he still has pain that he feels is limiting his ability to do pulmonary toilet and is not sleeping well at night. Objective Data Objective Data Vital Signs: Vital Signs Temp Pulse Resp BP Pulse Ox 97.1 F L 97 18 147/84 H 91 09/05/20 09:00 09/05/20 09:00 09/05/20 09:00 09/05/20 09:00 09/05/20 09:00 Oxygen Flow Rate (L/min) 6 Oxygen Delivery Method Nasal Cannula Weight: 179 lb 2.009 oz Body Mass Index (BMI) 27.1 Intake & Output: Intake and Output for Last 24 Hours 09/04/20 09/05/20 09/06/20 03:59 03:59 03:59 Intake Total 711 / 711 1211 / 1211 212 / 212 Output Total 1875 / 1875 3300 / 3300 450 / 450 Balance -1164 / -1164 -2089 / -2089 -238 / -238 Lab / Micro Data Result Diagrams: 09/04/20 06:30 09/05/20 05:17 Labs: Laboratory Results - last 24 hr 09/04/20 09/04/20 09/04/20 12:23 16:26 21:37 Sodium Potassium Chloride Carbon Dioxide Anion Gap BUN Creatinine Estim Creat Clear Calc Est GFR (MDRD) Af Amer Est GFR (MDRD) Non-Af BUN/Creatinine Ratio Glucose Calcium POC Glucose 156 H 125 H 174 H 09/05/20 05:17 Sodium 142 Potassium 3.7 Chloride 105 Carbon Dioxide 31.0 Anion Gap 6 BUN 14 Creatinine 0.86 Estim Creat Clear Calc 81.13 Est GFR (MDRD) Af Amer 115 Est GFR (MDRD) Non-Af 95 BUN/Creatinine Ratio 16.2 Glucose 149 H Calcium 8.2 L POC Glucose Micro: Microbiology 09/01/20 09:40 Sputum, Expectorated/Coughed Gram Stain - Final 09/01/20 09:40 Sputum, Expectorated/Coughed Respiratory Culture - Final Presumptive C albicans 08/28/20 12:00 Blood Culture (Wb) - Anticubital Left Blood Culture - Final No growth in 5 days. 08/28/20 10:55 Blood Culture (Wb) - Left Wrist Blood Culture - Final No growth in 5 days. 08/28/20 11:55 Urine Catheter - Catheter Urine Culture - Final Culture exhibits no growth. 08/28/20 11:55 Urine, Clean Catch Urine Culture - Final Culture exhibits no growth. 08/28/20 14:47 Mucosa - Nose Respiratory Panel (PCR) - Final 08/28/20 11:55 Urine Catheter - Catheter Streptococcus pneumoniae Antigen (M - Final 08/28/20 11:55 Urine Catheter - Catheter Legionella Antigen - Final Legionella Antigen 08/28/20 11:00 Mucosa - Nose SARS-CoV-2 Antigen (Rapid) - Final Physical Exam Const alert, oriented x3 and no apparent distress General Appearance: cooperative HEENT normocephalic and moist oral mucous membranes Eyes PERRL and EOMs intact bilaterally Neck supple and no JVD Resp normal respiratory effort, no retractions, no use of accessory muscles and clear to auscultation bilaterally Auscultation: diminished lung sounds; Negative for crackles, rales, rhonchi or wheezes Cardio regular rate, regular rhythm, S1 normal heart sound, S2 normal heart sound and no murmurs GI soft to palpation, non-tender and non-distended; Negative for hepatosplenomegaly Extremity no clubbing, cyanosis or edema Skin no rashes or lesions noted Neuro no focal motor deficits and no sensory deficits noted Psych affect normal Appearance: appropriate Assessment & Plan Assessment/Plan (1) Severe sepsis: (2) Pneumonia: QUALIFIERS: Aspiration pneumonia type: unspecified Laterality: right Lung location: lower lobe of lung Pneumonia type: aspiration pneumonia Qualified Code(s): J69.0 - Pneumonitis due to inhalation of food and vomit (3) Acute kidney injury: (4) Elevated troponin: (5) Essential (primary) hypertension: (6) Type 2 diabetes mellitus: PLAN: Patient is a 65-year-old gentleman admitted with altered mental status 1. Septic shock ?Secondary to pneumonia with suspected MDR's as well as acute cystitis. Patient has been admitted to the intensive care unit being managed with aggressive IV fluid resuscitation, broad-spectrum antibiotic therapy with Zosyn and vancomycin after cultures have been obtained. Patient progressed being monitored with lactic acid level as well as periodic examination -08/29/2020; patient remains on broad-spectrum antibiotic therapy. Urine Legionella antigen came back positive. Patient seen in consultation by Dr. Jeff with intensive care. ?08/30/2020: Can discontinue Zosyn and vancomycin, urine cultures unremarkable. Given his positive Legionella, will place him back on azithromycin and transition him to Unasyn to cover for aspiration pneumonia. Speech therapy to evaluate today -08/31/2020: Continue with Unasyn and azithromycin to cover his Legionella and his aspiration. He did pass speech therapy evaluation, and can take p.o. -09/01/2020: Since he is taking p.o., will discontinue his IV fluids -09/02/2020: This continued respiratory issues will give him a dose of Lasix today -09/03/2020: We will give him a dose of IV Lasix today to try to help diurese and reevaluate in the morning. We will monitor his creatinine. Based upon the amount of Zosyn and Unasyn he has obtained, will complete 7 days on 09/05/2020, which we will discontinue at that time and he will complete 10 total days of azithromycin. -09/05/2020: He will complete Unasyn today, and his azithromycin will be done after his dose on 09/08/2020 2. Acute hypoxic respiratory failure ?Secondary to pneumonia with MDR antibiotic therapy as discussed above. Patient placed on supplemental oxygen titrated to keep saturation greater than 90 ?08/29/2020; urine Legionella antigen came back positive -08/30/2020: See #1 -09/01/2020: Continue to encourage incentive spirometer, he takes very shallow breaths because he says it hurts his back and I have expressed to him that if he continues to take shallow breaths his pneumonia can potentially get worse. He remains on 5 to 6 L nasal cannula -09/02/2020: Continue to encourage incentive spirometer, he is about 8 L positive therefore we will give him a single dose of Lasix today -09/04/2020: He is around 6 L positive therefore we will continue with Lasix, renal function can handle it -09/05/2020: Had a placed on a fluid restriction, give another dose of Lasix today he is down to 5 L positive. Continue to encourage pulmonary toileting, he is to get out of bed and walk I did provide him with a lidocaine patch for his back yesterday and will add Flexeril today and see if that helps with his pain in his back. 3. Acute kidney injury ?Secondary to ATN from severe sepsis on IV fluid with subsequent monitoring of electrolytes -08/29/2020 patient was seen in consultation by Dr. Herring with nephrology -08/30/2020: Renal function appears to be improving, appreciate nephrology's assistance -09/01/2020: Renal function is back to baseline -09/04/2020: Renal function remains at baseline 4. Diabetes mellitus type 2 ?Complicated by episodes of hypoglycemia patient be managed with D5 with every 4 glucose checks -09/01/2020: Can adjust his insulin schedule and discontinue his IV fluids since he is taking p.o. 5. Essential hypertension ?Patient blood pressure was low on admission antihypertensives on hold 6. Elevated troponin ?Secondary to non-STEMI type II from sepsis 7. Coronary artery disease -History of previous [place] DVT: Heparin Charges/Coding Visit Charges Inpatient E&M: 97185 Subs Hosp L2
[2020-09-05] MEDS: Insulin Lispro 100 UNIT/ML INSULN.PEN SC ×2 (11:29→16:25)
[2020-09-05 16:21] LABS: Bedside Glucose 199 mg/dL (70-110)
[2020-09-05 21:01] LABS: Bedside Glucose 177 mg/dL (70-110)
[2020-09-05 21:41] LABS: Bedside Glucose 148 mg/dL (70-110)
[2020-09-05] MEDS: cycloBENZAPRine HCl 10 MG Tablet PO (21:41)
[2020-09-05] MEDS: 0.9% Saline Lock 10 ML Syringe IV (22:14)
[2020-09-06] VITALS (13 sets, daily range): BP systolic 130–151; BP diastolic 54–81; PULSE 68–105; RESP 18–22; TEMP 36.3–36.8; O2SAT 93–95
[2020-09-06 06:32] LABS: Absolute Lymphocyte Count 1.22 X10^3/uL (0.83-4.51); Absolute Neutrophil Count 7.3 X10^3/uL (2.0-7.7); Basophil# 0.06 X10^3/uL; Basophil% 0.6 % (0-1); Eosinophil# 0.28 X10^3/uL; Eosinophils% 2.9 % (0-5); Hematocrit 30.1 % (40-54); Hemoglobin 9.8 g/dL (13.0-16.5); Lymphocyte # 1.22 X10^3/ul (0.83-4.51); Lymphocyte % 12.7 % (19-41); Mean Corp Hgb Conc 32.6 g/dL (32-36); Mean Corpuscular Hgb 28.2 pg (27.0-32.0); Mean Corpuscular Volume 86.7 fL (80-94); Monocyte# 0.53 X10^3/uL; Monocyte% 5.5 % (0-10); NRBC Flagged by Analyzer 0 % (0-5); Neutrophil # 7.26 X10^3/uL (2.7-7.7); Neutrophil % 75.9 % (47-70); Platelet Count 499 K/mm3 (150-450); RBC Distribution Width SD 44.8 fl (35.1-43.9); Red Blood Count 3.47 M/mm3 (4.6-6.2); White Blood Count 9.6 K/mm3 (4.4-11.0)
[2020-09-06] MEDS: Heparin Injection (Vial) 5,000 UNIT/ML VIAL 5000 UNIT SC ×3 (06:38→21:39)
[2020-09-06] MEDS: Insulin Lispro 100 UNIT/ML INSULN.PEN SC ×4 (06:41→21:39)
[2020-09-06 06:46] LABS: Bedside Glucose 157 mg/dL (70-110)
[2020-09-06 06:49] LABS: Anion Gap 6 (5-15); BUN 13 mg/dL (7-18); BUN/Creat Ratio 13.7 RATIO (10-20); Calcium,Total 8.3 mg/dL (8.5-10.1); Chloride 104 mmol/L (98-107); Creatinine, Serum 0.95 mg/dL (0.70-1.30); EST Glomerular Filtration Rate 85 mL/min (>60); Est Glom Filt Rate - Afr Amer 103 mL/min (>60); Estimated Creatinine Clearance 73.44 ml/min; Glucose 152 mg/dL (74-106); Potassium 3.6 mmol/L (3.5-5.1); Sodium Level 141 mmol/L (136-145)
[2020-09-06] MEDS: Ipratropium/Albuterol Sulfate 3 ML AMPUL.NEB INHALATION ×3 (07:00→18:50)
--- NOTE | 2020-09-06 08:29 | PCM.PN.INT ---
Assessment & Plan Assessment/Plan (1) Septic shock: PLAN: RECOMMENDATIONS: 1. Continue antimicrobials to complete treatment course. 2. Continue scheduled bronchodilator therapy. 3. Continue to wean supplemental oxygen to maintain saturations at or above 90%. 4. Encourage incentive spirometer use and mobilize patient as tolerated. IMPRESSIONS: 1. Acute hypoxemic respiratory failure Although the patient has a documented history of COPD, he has never been evaluated by a polarity tester or completed pulmonary function studies. In addition, he does not utilize inhalers at his baseline. Echocardiogram was relatively unremarkable. Patient does have Legionella antigen and a dense right lower lobe infiltrate. Stressed to the patient that incentive spirometer will be vital for pulmonary recruitment. Encourage incentive spirometer use and mobilize patient as tolerated. 2. Metabolic encephalopathy Improved. Likely metabolic in etiology and related to underlying infectious processes and underlying renal insufficiency. CT head was negative. Continue measures as noted above. 3. Hypertension/history of coronary artery disease/diabetes mellitus/back pain Complicates care, management, recovery and prognosis. Continue home medications as indicated. This note was generated with [employer] dictation software. It may contain incorrect words, spelling, and punctuation that were not noted in checking the note before signing. Subjective Subjective The patient was seen and examined at the bedside this morning. Events from the last 24 hours have been reviewed. The patient is currently afebrile, hemodynamically stable and maintaining appropriate oxygen saturations on 6 L/min via nasal cannula. The patient is currently documented to be overall net +3.2 L for the hospital admission. Physical therapy is attempting to work with the patient. Objective Data Objective Data The patient's most recent lab work, culture data and imaging studies have all been personally reviewed. Surface echocardiogram revealed normal LV size and function with an ejection fraction of 55%. Pulmonary artery systolic pressure was estimated to be 35 mmHg. Legionella antigen was positive on August 28. The remainder of the infectious work-up was unrevealing. Vital Signs: Vital Signs Temp Pulse Resp BP Pulse Ox 97.4 F L 72 22 H 151/71 H 94 09/06/20 02:15 09/06/20 07:00 09/06/20 07:00 09/06/20 02:15 09/06/20 07:00 Oxygen Flow Rate (L/min) 6 Oxygen Delivery Method Nasal Cannula Weight: 169 lb 5.04 oz Body Mass Index (BMI) 27.1 Intake & Output: Intake and Output for Last 24 Hours 09/04/20 09/05/20 09/06/20 23:59 23:59 23:59 Intake Total 1151 / 1211 1091 / 1091 Output Total 3250 / 3500 2525 / 2525 825 / 825 Balance -2099 / -2289 -1434 / -1434 -825 / -825 Lab / Micro Data Attestation: I reviewed the patient's lab results. Result Diagrams: 09/06/20 06:02 09/06/20 06:02 Labs: Laboratory Results - last 24 hr 09/05/20 09/05/20 09/05/20 11:28 16:21 21:25 WBC RBC Hgb Hct MCV MCH MCHC RDW Std Deviation RDW Coeff of Barbara Plt Count MPV Immature Gran % (Auto) Neut % (Auto) Lymph % (Auto) [place] % (Auto) Eos % (Auto) Baso % (Auto) Absolute Neuts (auto) Absolute Lymphs (auto) Nucleated RBC % Sodium Potassium Chloride Carbon Dioxide Anion Gap BUN Creatinine Estim Creat Clear Calc Est GFR (MDRD) Af Amer Est GFR (MDRD) Non-Af BUN/Creatinine Ratio Glucose Calcium POC Glucose 199 H 177 H 148 H 09/06/20 09/06/20 09/06/20 06:02 06:02 06:40 WBC 9.6 RBC 3.47 L Hgb 9.8 L Hct 30.1 L MCV 86.7 MCH 28.2 MCHC 32.6 RDW Std Deviation 44.8 H RDW Coeff of Barbara 14.0 Plt Count 499 H MPV 10.0 Immature Gran % (Auto) 2.400 H Neut % (Auto) 75.9 H Lymph % (Auto) 12.7 L [place] % (Auto) 5.5 Eos % (Auto) 2.9 Baso % (Auto) 0.6 Absolute Neuts (auto) 7.3 Absolute Lymphs (auto) 1.22 Nucleated RBC % 0 Sodium 141 Potassium 3.6 Chloride 104 Carbon Dioxide 31.0 Anion Gap 6 BUN 13 Creatinine 0.95 Estim Creat Clear Calc 73.44 Est GFR (MDRD) Af Amer 103 Est GFR (MDRD) Non-Af 85 BUN/Creatinine Ratio 13.7 Glucose 152 H Calcium 8.3 L POC Glucose 157 H Micro: Microbiology 06/23/21 09:40 Sputum, Expectorated/Coughed Gram Stain - Final 09/01/20 09:40 Sputum, Expectorated/Coughed Respiratory Culture - Final Presumptive C albicans 08/28/20 12:00 Blood Culture (Wb) - Anticubital Left Blood Culture - Final No growth in 5 days. 08/28/20 10:55 Blood Culture (Wb) - Left Wrist Blood Culture - Final No growth in 5 days. 08/28/20 11:55 Urine Catheter - Catheter Urine Culture - Final Culture exhibits no growth. 08/28/20 11:55 Urine, Clean Catch Urine Culture - Final Culture exhibits no growth. 08/28/20 14:47 Mucosa - Nose Respiratory Panel (PCR) - Final 08/28/20 11:55 Urine Catheter - Catheter Streptococcus pneumoniae Antigen (M - Final 08/28/20 11:55 Urine Catheter - Catheter Legionella Antigen - Final Legionella Antigen 08/28/20 11:00 Mucosa - Nose SARS-CoV-2 Antigen (Rapid) - Final Physical Exam Const alert and no apparent distress General Appearance: cooperative HEENT normocephalic and head/scalp atraumatic Eyes PERRL, EOMs intact bilaterally and conjunctivae normal Neck supple General: trachea midline Resp Auscultation: diminished lung sounds; Negative for rales, rhonchi or wheezes Cardio regular rate and regular rhythm GI normal to inspection, nondistended, normoactive bowel sounds Extremity no clubbing, cyanosis or edema Skin no rashes or lesions noted Neuro CN's II-XII intact bilaterally, moves all extremities and no focal motor deficits Psych Mood & Affect: flat affect Charges/Coding Visit Charges Inpatient E&M: 79566 Subs Hosp L2
[2020-09-06] MEDS: Lidocaine 5% Patch 1 PATCH TOPICAL (08:55)
[2020-09-06] MEDS: 0.9% Saline Lock 10 ML Syringe IV ×2 (08:55→13:59)
[2020-09-06] MEDS: amLODIPine 2.5 MG Tablet PO (08:55)
[2020-09-06 11:46] LABS: Bedside Glucose 157 mg/dL (70-110)
[2020-09-06] MEDS: Acetaminophen 325 MG Tablet 650 MG PO (13:58)
[2020-09-06 16:30] LABS: Bedside Glucose 160 mg/dL (70-110)
--- NOTE | 2020-09-06 17:44 | NURSING ---
Patient's visitor came to the desk to inform this RN that patient has decided he is now willing to pay for home O2.
--- NOTE | 2020-09-06 19:32 | PN.HOSP_ITS ---
Subjective Subjective Patient was seen and examined today, he still requiring 6 L of oxygen via nasal cannula at rest. Patient has questions about when he go home, I told him his lungs he required high flow oxygen at rest, he was probably not going to be able to go home yet. Objective Data Objective Data Vital Signs: Vital Signs Temp Pulse Resp BP Pulse Ox 98.2 F 68 18 130/54 H 93 09/06/20 15:16 09/06/20 15:16 09/06/20 15:16 09/06/20 15:16 09/06/20 15:16 Oxygen Flow Rate (L/min) 6 Oxygen Delivery Method Nasal Cannula Weight: 76.8 kg Body Mass Index (BMI) 27.1 Intake & Output: Intake and Output for Last 24 Hours 09/04/20 09/05/20 09/06/20 23:59 23:59 23:59 Intake Total 1151 / 1211 1091 / 1091 855 / 855 Output Total 3250 / 3500 2525 / 2525 1725 / 1725 Balance -2099 / -2289 -1434 / -1434 -870 / -870 Lab / Micro Data Result Diagrams: 09/06/20 06:02 09/06/20 06:02 Labs: Laboratory Results - last 24 hr 09/05/20 09/05/20 09/06/20 16:21 21:25 06:02 WBC 9.6 RBC 3.47 L Hgb 9.8 L Hct 30.1 L MCV 86.7 MCH 28.2 MCHC 32.6 RDW Std Deviation 44.8 H RDW Coeff of Barbara 14.0 Plt Count 499 H MPV 10.0 Immature Gran % (Auto) 2.400 H Neut % (Auto) 75.9 H Lymph % (Auto) 12.7 L [place] % (Auto) 5.5 Eos % (Auto) 2.9 Baso % (Auto) 0.6 Absolute Neuts (auto) 7.3 Absolute Lymphs (auto) 1.22 Nucleated RBC % 0 Sodium Potassium Chloride Carbon Dioxide Anion Gap BUN Creatinine Estim Creat Clear Calc Est GFR (MDRD) Af Amer Est GFR (MDRD) Non-Af BUN/Creatinine Ratio Glucose Calcium POC Glucose 177 H 148 H 09/06/20 09/06/20 09/06/20 06:02 06:40 11:32 WBC RBC Hgb Hct MCV MCH MCHC RDW Std Deviation RDW Coeff of Barbara Plt Count MPV Immature Gran % (Auto) Neut % (Auto) Lymph % (Auto) [place] % (Auto) Eos % (Auto) Baso % (Auto) Absolute Neuts (auto) Absolute Lymphs (auto) Nucleated RBC % Sodium 141 Potassium 3.6 Chloride 104 Carbon Dioxide 31.0 Anion Gap 6 BUN 13 Creatinine 0.95 Estim Creat Clear Calc 73.44 Est GFR (MDRD) Af Amer 103 Est GFR (MDRD) Non-Af 85 BUN/Creatinine Ratio 13.7 Glucose 152 H Calcium 8.3 L POC Glucose 157 H 157 H 09/06/20 16:23 WBC RBC Hgb Hct MCV MCH MCHC RDW Std Deviation RDW Coeff of Barbara Plt Count MPV Immature Gran % (Auto) Neut % (Auto) Lymph % (Auto) [place] % (Auto) Eos % (Auto) Baso % (Auto) Absolute Neuts (auto) Absolute Lymphs (auto) Nucleated RBC % Sodium Potassium Chloride Carbon Dioxide Anion Gap BUN Creatinine Estim Creat Clear Calc Est GFR (MDRD) Af Amer Est GFR (MDRD) Non-Af BUN/Creatinine Ratio Glucose Calcium POC Glucose 160 H Micro: Microbiology 09/01/20 09:40 Sputum, Expectorated/Coughed Gram Stain - Final 09/01/20 09:40 Sputum, Expectorated/Coughed Respiratory Culture - Final Presumptive C albicans 08/28/20 12:00 Blood Culture (Wb) - Anticubital Left Blood Culture - Final No growth in 5 days. 08/28/20 10:55 Blood Culture (Wb) - Left Wrist Blood Culture - Final No growth in 5 days. 08/28/20 11:55 Urine Catheter - Catheter Urine Culture - Final Culture exhibits no growth. 08/28/20 11:55 Urine, Clean Catch Urine Culture - Final Culture exhibits no growth. 08/28/20 14:47 Mucosa - Nose Respiratory Panel (PCR) - Final 08/28/20 11:55 Urine Catheter - Catheter Streptococcus pneumoniae Antigen (M - Final 08/28/20 11:55 Urine Catheter - Catheter Legionella Antigen - Final Legionella Antigen 08/28/20 11:00 Mucosa - Nose SARS-CoV-2 Antigen (Rapid) - Final Physical Exam Const alert, oriented x3 and no apparent distress General Appearance: cooperative, well kempt and well developed Orientation / Consciousness: awake, oriented to person, oriented to place and oriented to time HEENT normocephalic, head/scalp atraumatic and moist oral mucous membranes Head and Scalp: normocephalic Eyes PERRL, EOMs intact bilaterally and conjunctivae normal Neck nuchal rigidity, supple, no JVD, thyroid normal and no carotid bruits General: trachea midline Resp no retractions and no use of accessory muscles Resp Narrative: Decreased breath sounds were noted bilaterally Auscultation: Negative for rales, rhonchi or wheezes Cardio regular rate, regular rhythm, S1 normal heart sound, S2 normal heart sound, no murmurs, no rub and no gallops GI normal to inspection, nondistended, normoactive bowel sounds, soft to palpation, non-tender and non-distended Extremity no clubbing, cyanosis or edema Skin no rashes or lesions noted General Skin Exam: no breakdown Neuro oriented x3, CN's II-XII intact bilaterally, no focal motor deficits and no sensory deficits noted Sensorium / Orientation: awake and alert Speech: speech normal Psych thought process normal and affect normal Assessment & Plan Assessment/Plan (1) Septic shock: PLAN: 1. Septic shock-secondary to Legionella pneumonia and possible acute cystitis-I have decided to stop the patient's Zithromax, he has completed 8 days of treatment #2 acute hypoxic respiratory failure secondary to Legionella pneumonia with und erlying COPD-continue to wean O2 if possible, continue aerosol treatment #3 acute kidney injury-nephrology is following at this time, patient's renal functions are normal at this time #4 essential hypertension #5 coronary artery disease #6 type 2 diabetes- blood sugars have been under fair control #7 probable acute cystitis-patient's urine culture was negative Charges/Coding Visit Charges Inpatient E&M: 59827 Subs Hosp L2
[2020-09-06] MEDS: cycloBENZAPRine HCl 10 MG Tablet PO (21:43)
[2020-09-06 22:41] LABS: Bedside Glucose 189 mg/dL (70-110)
[2020-09-07] VITALS (10 sets, daily range): BP systolic 141–154; BP diastolic 75–82; PULSE 69–92; RESP 18–24; TEMP 36.5–36.7; O2SAT 79–95
--- NOTE | 2020-09-07 06:24 | PCM.PN.INT ---
Assessment & Plan Assessment/Plan (1) Septic shock: PLAN: RECOMMENDATIONS: 1. Continue scheduled bronchodilator therapy. 2. Continue to wean supplemental oxygen to maintain saturations at or above 90%. 3. Encourage incentive spirometer use and mobilize patient as tolerated. 4. Perform walking oximetry study prior to consideration for discharge home. IMPRESSIONS: 1. Acute hypoxemic respiratory failure Although the patient has a documented history of COPD, he has never been evaluated by a head host/hostess or completed pulmonary function studies. In addition, he does not utilize inhalers at his baseline. Echocardiogram was relatively unremarkable. Patient does have Legionella antigen and a dense right lower lobe infiltrate. Stressed to the patient that incentive spirometer will be vital for pulmonary recruitment. Encourage incentive spirometer use and mobilize patient as tolerated. 2. Metabolic encephalopathy Improved. Likely metabolic in etiology and related to underlying infectious processes and underlying renal insufficiency. CT head was negative. Continue measures as noted above. 3. Hypertension/history of coronary artery disease/diabetes mellitus/back pain Complicates care, management, recovery and prognosis. Continue home medications as indicated. This note was generated with [employer] dictation software. It may contain incorrect words, spelling, and punctuation that were not noted in checking the note before signing. Subjective Subjective The patient was seen and examined at the bedside this morning. Events from the last 24 hours have been reviewed. The patient is currently afebrile, hemodynamically stable and maintaining appropriate oxygen saturations on 4 L/min via nasal cannula. The patient is currently documented to be overall net +2.9 L for the hospital admission. Objective Data Objective Data The patient's most recent lab work, culture data and imaging studies have all been personally reviewed. Surface echocardiogram revealed normal LV size and function with an ejection fraction of 55%. Pulmonary artery systolic pressure was estimated to be 35 mmHg. Legionella antigen was positive on August 28. The remainder of the infectious work-up was unrevealing. Vital Signs: Vital Signs Temp Pulse Resp BP Pulse Ox 97.7 F L 75 18 154/82 H 95 09/07/20 02:52 09/07/20 03:00 09/07/20 02:52 09/07/20 02:52 09/07/20 02:52 Oxygen Flow Rate (L/min) 6 Oxygen Delivery Method Nasal Cannula Weight: 169 lb 5.04 oz Body Mass Index (BMI) 27.1 Intake & Output: Intake and Output for Last 24 Hours 09/05/20 09/06/20 09/07/20 23:59 23:59 23:59 Intake Total 1091 / 1091 855 / 1215 460 / 460 Output Total 2525 / 2525 1725 / 2125 700 / 700 Balance -1434 / -1434 -870 / -910 -240 / -240 Lab / Micro Data Attestation: I reviewed the patient's lab results. Result Diagrams: 09/06/20 06:02 09/06/20 06:02 Labs: Laboratory Results - last 24 hr 09/06/20 09/06/20 09/06/20 06:02 06:02 06:40 WBC 9.6 RBC 3.47 L Hgb 9.8 L Hct 30.1 L MCV 86.7 MCH 28.2 MCHC 32.6 RDW Std Deviation 44.8 H RDW Coeff of Barbara 14.0 Plt Count 499 H MPV 10.0 Immature Gran % (Auto) 2.400 H Neut % (Auto) 75.9 H Lymph % (Auto) 12.7 L [place] % (Auto) 5.5 Eos % (Auto) 2.9 Baso % (Auto) 0.6 Absolute Neuts (auto) 7.3 Absolute Lymphs (auto) 1.22 Nucleated RBC % 0 Sodium 141 Potassium 3.6 Chloride 104 Carbon Dioxide 31.0 Anion Gap 6 BUN 13 Creatinine 0.95 Estim Creat Clear Calc 73.44 Est GFR (MDRD) Af Amer 103 Est GFR (MDRD) Non-Af 85 BUN/Creatinine Ratio 13.7 Glucose 152 H Calcium 8.3 L POC Glucose 157 H 09/06/20 09/06/20 09/06/20 11:32 16:23 21:37 WBC RBC Hgb Hct MCV MCH MCHC RDW Std Deviation RDW Coeff of Barbara Plt Count MPV Immature Gran % (Auto) Neut % (Auto) Lymph % (Auto) [place] % (Auto) Eos % (Auto) Baso % (Auto) Absolute Neuts (auto) Absolute Lymphs (auto) Nucleated RBC % Sodium Potassium Chloride Carbon Dioxide Anion Gap BUN Creatinine Estim Creat Clear Calc Est GFR (MDRD) Af Amer Est GFR (MDRD) Non-Af BUN/Creatinine Ratio Glucose Calcium POC Glucose 157 H 160 H 189 H Micro: Microbiology 09/01/20 09:40 Sputum, Expectorated/Coughed Gram Stain - Final 09/01/20 09:40 Sputum, Expectorated/Coughed Respiratory Culture - Final Presumptive C albicans 08/28/20 12:00 Blood Culture (Wb) - Anticubital Left Blood Culture - Final No growth in 5 days. 08/28/20 10:55 Blood Culture (Wb) - Left Wrist Blood Culture - Final No growth in 5 days. 08/28/20 11:55 Urine Catheter - Catheter Urine Culture - Final Culture exhibits no growth. 08/28/20 11:55 Urine, Clean Catch Urine Culture - Final Culture exhibits no growth. 08/28/20 14:47 Mucosa - Nose Respiratory Panel (PCR) - Final 08/28/20 11:55 Urine Catheter - Catheter Streptococcus pneumoniae Antigen (M - Final 08/28/20 11:55 Urine Catheter - Catheter Legionella Antigen - Final Legionella Antigen 08/28/20 11:00 Mucosa - Nose SARS-CoV-2 Antigen (Rapid) - Final Physical Exam Const alert and no apparent distress General Appearance: cooperative HEENT normocephalic and head/scalp atraumatic Eyes PERRL, EOMs intact bilaterally and conjunctivae normal Neck supple General: trachea midline Resp Auscultation: diminished lung sounds; Negative for rales, rhonchi or wheezes Cardio regular rate and regular rhythm GI normal to inspection, nondistended, normoactive bowel sounds Extremity no clubbing, cyanosis or edema Skin no rashes or lesions noted Neuro CN's II-XII intact bilaterally, moves all extremities and no focal motor deficits Psych Mood & Affect: flat affect Charges/Coding Visit Charges Inpatient E&M: 53250 Subs Hosp L2
[2020-09-07] MEDS: Heparin Injection (Vial) 5,000 UNIT/ML VIAL 5000 UNIT SC (06:40)
[2020-09-07] MEDS: cycloBENZAPRine HCl 10 MG Tablet PO (06:43)
[2020-09-07 06:55] LABS: Bedside Glucose 147 mg/dL (70-110)
[2020-09-07] MEDS: Ipratropium/Albuterol Sulfate 3 ML AMPUL.NEB INHALATION (06:58)
[2020-09-07] MEDS: Lidocaine 5% Patch 1 PATCH TOPICAL (08:21)
[2020-09-07] MEDS: amLODIPine 2.5 MG Tablet PO (08:21)
[2020-09-07] MEDS: Acetaminophen 325 MG Tablet 650 MG PO (11:37)
[2020-09-07] MEDS: Insulin Lispro 100 UNIT/ML INSULN.PEN SC (11:38)
[2020-09-07 11:45] LABS: Bedside Glucose 165 mg/dL (70-110)
--- NOTE | 2020-09-07 12:10 | CASEMGMT ---
Pt qualifies for 4L at rest and 6L w/ exertion per A.Self RN. Call to Angela at [facility] as pt will need higher liter flow concentrator and per Angela, pt's cost will be about $119.00/month. This RN CM to room to discuss discharge plan with pt. Pt is agreeable to oxygen aguilar at this time and declines need for any further therapy/resources at this time. Order faxed to [facility] and pt states his son can bring in a credit card for [facility] to have on file. Pt voices no further questions/concerns/needs. Call to [facility] to notify of order and pt discharge today. [place] JENA WEN
--- NOTE | 2020-09-07 14:04 | PCM.DC ---
Discharge Instructions Diet Discharge Diet: 1800 Calorie Control Diet Activity Discharge Activity: Return to Normal Activity Follow Up Care Test Results: Test results from this visit will be discussed in further detail at your follow-up appointment, if applicable. Discharge Plan Admission Admit Date/Time: 08/28/20 14:12 Primary Reason for Your Visit: pneumonia Attending Provider: Curt Looney Primary Care Provider: Ori Elias Consulting Providers: Brandon Moses ; Abdi Jeff ; Yumiko Moctezuma NP ; Lee Guevara Discharge Orders/Prescriptions Prescriptions: New cyclobenzaprine 10 mg Tablet 10 mg PO TID PRN PRN (Reason: back pain) Qty: 20 RF: 0 albuterol sulfate 90 mcg/actuation HFA aerosol inhaler 2 puff inhalation Q6H Qty: 8.5 RF: 0 Continued pioglitazone 15 mg tablet 15 mg PO DAILY RF: 0 amlodipine 2.5 mg tablet 2.5 mg PO DAILY RF: 0 metformin 1,000 mg tablet 1,000 mg PO BID RF: 0 Changed glimepiride 1 mg tablet 1 mg PO DAILY Qty: 0 RF: 0 lisinopril 40 mg tablet 20 mg PO DAILY Qty: 0 RF: 0 Discontinued triamterene-hydrochlorothiazid 37.5-25 mg tablet 1 tab PO DAILY RF: 0 aspirin 81 mg Tablet 81 mg PO DAILY RF: 0 Referrals / Follow Up: Ori Elias DO [Primary Care Provider] - Within 2 Weeks Disposition Disposition (needs filled in before D/C Order can be placed): Home, Self Care
--- NOTE | 2020-09-09 18:27 | DS.PCM_ITS ---
Providers Date of Admission: 08/28/20 Date of Discharge: 09/06/20 Primary Care Physician: Dr. Ori Elias, Consultations 08/28/20 16:26 Consult: [employer] Operator / Pulmonary Medicine Routine Consulting Provider: [facility] Reason for Consult: Septic shock EMERGENT Consult: No Notified: Yes Date Notified: 08/28/20 Time Notified: 14:08 Method of Notification: Page 08/28/20 17:07 Consult: Nephrology Routine Consulting Provider: Lee Guevara Reason for Consult: XOCHILT EMERGENT Consult: No Notified: Yes Date Notified: 08/28/20 Time Notified: 17:08 Method of Notification: Provider Initiated Reason For Visit: SEPTIC SHOCK Diagnosis Discharge Diagnosis (1) Septic shock: Status: Acute Code(s): A41.9 - Sepsis, unspecified organism; R65.21 - Severe sepsis with septic shock Plan: Discharge diagnoses #1 septic shock-secondary to Legionella pneumonia #2 acute Legionella pneumonia #3 acute hypoxic respiratory failure #4 acute kidney injury #5 type 2 diabetes #6 essential hypertension #7 coronary artery disease #8 elevated troponin-secondary to septic shock-no evidence for non-STEMI #9 metabolic encephalopathy secondary to #1 #10 hypokalemia Medications at Discharge Home Medications amlodipine 2.5 mg PO DAILY 08/28/20 metformin 1,000 mg PO BID 08/28/20 pioglitazone 15 mg PO DAILY 08/28/20 albuterol sulfate 2 puff INHALATION Q6H #8.5 g 09/07/20 cyclobenzaprine 10 mg PO TID PRN PRN #20 tab 09/07/20 glimepiride 1 mg PO DAILY #0 tab 09/07/20 lisinopril 20 mg PO DAILY #0 tab 09/07/20 Hospital Course Operations None Procedures 2-D Echocardiogram Summary of Care Provided Minutes Spent on Discharge: 33 Hospital Course: Patient was seen in the emergency room at [facility] after presenting with mental status change x48 hours. History was not be able to be obtained from the patient, patient's family was present. Work-up in the emergency room included labs which showed an elevated white blood cell count, EKG showed a sinus tachycardia with a rate of 130, chest x-ray was obtained and showed a right sided pulmonary infiltrate in the right upper right lower right middle lobes. CT of the brain was obtained which showed no acute intracranial abnormality, metabolic profile was obtained which showed elevated creatinine at 3.69 and a BUN of 67. Patient's liver enzymes were elevated. Troponin was 0.135. Lactic acid was elevated at 6.8. IV fluids were administered and patient was given IV antibiotics. Patient was admitted to ICU with a diagnosis of septic shock, he was seen in consultation by pulmonary medicine. Patient's condition stabilized in the ICU, patient's urine antigen was positive for Legionella and this was felt to be the etiology of his septic shock. Patient was transferred to PCU and his oxygen was weaned down, patient however required oxygen at the time of discharge home- patient required 4 L of oxygen via nasal cannula at rest to maintain his pulse ox at 93 %, he required 6 L of oxygen on exertion to maintain his pulse ox at 90 %. On 09/06/2020, patient was seen and examined: On examination he appeared older than his stated age. Vital signs as documented. Skin warm and dry and without overt rashes. Neck without JVD, neck was supple, trachea midline, thyroid was normal. Lungs clear bilaterally, normal air movement was noted. Heart exam notable for regular rhythm, normal sounds and absence of murmurs, rubs or gallops. Abdomen unremarkable and without evidence of organomegaly, masses, or abdominal aortic enlargement. Bowel sounds are present, abdomen is not distended. Extremities nonedematous, no cyanosis was noted, no clubbing was noted. Neuro: Cranial nerves II through XII are grossly intact, no focal motor deficits were noted, sensation to light touch and pinprick intact, motor exam 5/5 throughout. Psych: Patient is alert and oriented x3, he does not appear anxious or depressed, he does not appear agitated. Patient was discharged home in stable condition on 09/06/2020. Weight / BMI Weight Weight: 76.2 kg Body Mass Index (BMI) 27.1 ABG / Lab / Microbiology Data Result Diagrams: 09/06/20 06:02 09/06/20 06:02 Microbiology: Microbiology 09/01/20 09:40 Sputum, Expectorated/Coughed Gram Stain - Final 09/01/20 09:40 Sputum, Expectorated/Coughed Respiratory Culture - Final Presumptive C albicans 08/28/20 12:00 Blood Culture (Wb) - Anticubital Left Blood Culture - Final No growth in 5 days. 08/28/20 10:55 Blood Culture (Wb) - Left Wrist Blood Culture - Final No growth in 5 days. 08/28/20 11:55 Urine Catheter - Catheter Urine Culture - Final Culture exhibits no growth. 08/28/20 11:55 Urine, Clean Catch Urine Culture - Final Culture exhibits no growth. 08/28/20 14:47 Mucosa - Nose Respiratory Panel (PCR) - Final 08/28/20 11:55 Urine Catheter - Catheter Streptococcus pneumoniae Antigen (M - Final 08/28/20 11:55 Urine Catheter - Catheter Legionella Antigen - Final Legionella Antigen 08/28/20 11:00 Mucosa - Nose SARS-CoV-2 Antigen (Rapid) - Final D/C Instructions Discharge Diet: 1800 Calorie Control Diet Meaningful Use Info Meaningful Use Diagnoses (Choose all that apply): None applicable Discharge Plan Admission Admit Date/Time: 08/28/20 14:12 Primary Reason for Your Visit: pneumonia Attending Provider: Curt Looney Primary Care Provider: Ori Elias Consulting Providers: Brandon Moses ; Abdi Jeff ; Yumiko Moctezuma NP ; Lee Guevara Discharge Orders/Prescriptions Prescriptions: New cyclobenzaprine 10 mg Tablet 10 mg PO TID PRN PRN (Reason: back pain) Qty: 20 RF: 0 albuterol sulfate 90 mcg/actuation HFA aerosol inhaler 2 puff inhalation Q6H Qty: 8.5 RF: 0 Continued pioglitazone 15 mg tablet 15 mg PO DAILY RF: 0 amlodipine 2.5 mg tablet 2.5 mg PO DAILY RF: 0 metformin 1,000 mg tablet 1,000 mg PO BID RF: 0 Changed glimepiride 1 mg tablet 1 mg PO DAILY Qty: 0 RF: 0 lisinopril 40 mg tablet 20 mg PO DAILY Qty: 0 RF: 0 Discontinued triamterene-hydrochlorothiazid 37.5-25 mg tablet 1 tab PO DAILY RF: 0 aspirin 81 mg Tablet 81 mg PO DAILY RF: 0 Referrals / Follow Up: Ori Elias DO [Primary Care Provider] - Within 2 Weeks Disposition Disposition (needs filled in before D/C Order can be placed): Home, Self Care Charges/Coding Visit Charges Inpatient E&M: 56836 Disch Hosp
== END 2020-09-07 16:39 | disposition home or self-care (01) | DRG 871 ==
LOC: ED 13:41 → ICU 14:57 → PCU 09-06 07:13 → ICU 09-06 08:57
PROVIDERS: Family Medicine; Internal Medicine Critical Care Medicine; Admitting Provider Internal Medicine; Emergency Provider Emergency Medicine; PCP Family Medicine; Visit Provider Internal Medicine
DX: A41.9 Sepsis, unspecified organism (principal); R65.21 Severe sepsis with septic shock; A48.1 Legionnaires' disease; J96.01 Acute respiratory failure with hypoxia; N17.0 Acute kidney failure with tubular necrosis; G93.41 Metabolic encephalopathy; J69.0 Pneumonitis due to inhalation of food and vomit; J44.0 Chronic obstructive pulmonary disease with (acute) lower respiratory infection; N30.00 Acute cystitis without hematuria; Z87.891 Personal history of nicotine dependence; E87.6 Hypokalemia; I10 Essential (primary) hypertension; I25.10 Atherosclerotic heart disease of native coronary artery without angina pectoris; E11.9 Type 2 diabetes mellitus without complications; Z79.84 Long term (current) use of oral hypoglycemic drugs; Z79.899 Other long term (current) drug therapy
CPT/HCPCS: 36415; 70450; 71045; 72100; 80048; 80053; 80202; 81001; 82962; 83605; 83735; 83880; 84100; 84484; 85025; 85610; 85730; 87040; 87070; 87086; 87205; 87426; 87449; 87633; 87635; 87641; 92526; 92610; 93005; 93306; 94640; 94762; 97110; 97116; 97162; 97165; 97530; 97535; 99251; 99285; J7030; J7050; Q9957; U0005; A4216; C1751; C8929; G0463; J0295; J0696; J1940; J3490; U0003